=== PATIENT | male | born 1960 | race Caucasian/White ===

== ENCOUNTER 2016-08-07 10:51 | Outpatient (CLI) | payer MEDICARE, BC ==
[~2016-08-07 10:51] MED LIST: ALPR2TAB7 PO; CINA30TA PO; DOCU100T2 PO; GABA-534 PO; INSU100C10 SQ; INSU100C7 SQ; IPRA12.9 IH; LATA2.5D2 EACHEYE; MIDO10TA PO; PANT40SU PO; SERT50TA PO; SEVE800T8 PO; SIMV40TA5 PO; SODI454P9 PO
== END 2016-08-07 23:59 | disposition home or self-care (01) ==
LOC: WOU 10:51
PROVIDERS: ATTEND Podiatrist Foot & Ankle Surgery
DX: E11.621 Type 2 diabetes mellitus with foot ulcer (principal); L97.512 Non-pressure chronic ulcer of other part of right foot with fat layer exposed; E11.42 Type 2 diabetes mellitus with diabetic polyneuropathy; Z83.3 Family history of diabetes mellitus; Z87.891 Personal history of nicotine dependence
CPT/HCPCS: 11042; A6402

== ENCOUNTER 2016-08-14 11:15 | Outpatient (CLI) | payer MEDICARE, BC | END 2016-08-14 23:59 | disposition left against medical advice (07) | LOC: WOU 11:15 | PROVIDERS: ATTEND Podiatrist Foot & Ankle Surgery | DX: Z75.3 Unavailability and inaccessibility of health-care facilities (principal) | CPT/HCPCS: A6402 ==

== ENCOUNTER 2016-08-18 08:51 | Emergency (ER) | payer MEDICARE, BC ==
[~2016-08-18] VITALS: Ht 170.2 cm; Wt 68.0 kg
[2016-08-18 10:26] VITALS: BP 123/57
== END 2016-08-18 10:27 | disposition home or self-care (01) ==
LOC: ER 08:53
DX: I12.0 Hypertensive chronic kidney disease with stage 5 chronic kidney disease or end stage renal disease (principal); N18.6 End stage renal disease; J45.909 Unspecified asthma, uncomplicated; F41.9 Anxiety disorder, unspecified; I25.2 Old myocardial infarction; E11.9 Type 2 diabetes mellitus without complications; Z99.2 Dependence on renal dialysis; Z79.4 Long term (current) use of insulin; Z88.8 Allergy status to other drugs, medicaments and biological substances
CPT/HCPCS: 99281; A4606; Z7502; Z7610

== ENCOUNTER 2016-10-11 08:14 | Outpatient (CLI) | payer MEDICARE, BC ==
[2016-10-11 09:16] LABS: BASOPHILS # (AUTO) 0.1 /CMM (0.0-0.2); BASOPHILS % (AUTO) 0.9 % (0.0-2.0); EOSINOPHILS # (AUTO) 0.4 /CMM (0.0-0.7); EOSINOPHILS % (AUTO) 5.7 % (0.0-6.0); LYMPHOCYTES # (AUTO) 1.4 /CMM (0.8-4.8); LYMPHOCYTES % (AUTO) 22.2 % (20.0-44.0); MEAN CORPUSCULAR HEMOGLOBIN 30 PG (26.0-33.0); MEAN CORPUSCULAR HGB CONC 33 g/dl (31.0-36.0); MEAN CORPUSCULAR VOLUME 93 fL (80-96); MONOCYTES # (AUTO) 0.7 /CMM (0.1-1.30); MONOCYTES % (AUTO) 11.1 % (2.0-12.0); NEUTROPHILS # (AUTO) 3.8 /CMM (1.8-8.9); NEUTROPHILS % (AUTO) 60.1 % (43.0-81.0); PLATELET COUNT (AUTO) 197 /CMM (150-450); RDW COEFFICIENT OF VARIATION 14.5 (11.5-15.0); RED BLOOD CELL COUNT(AUTO) 6.62 MIL/uL (4.5-6.0); WHITE BLOOD COUNT (AUTO) 6.4 K/uL (4.3-11.0)
[2016-10-11 09:40] LABS: HEMOGLOBIN 19.9 g/dL (13.5-17.5)
[2016-10-11 09:42] LABS: HEMATOCRIT 61 % (39-51)
[2016-10-11 09:45] LABS: EOSINOPHILS % (MANUAL) 7 % (0-4); LYMPHOCYTES % (MANUAL) 28 % (16-48); MONOCYTES % (MANUAL) 12 % (0-11.0); NEUTROPHILS % (MANUAL) 53 (42-76)
[2016-10-11 09:47] LABS: ANISOCYTOSIS 1+; PLATELET ESTIMATE ADEQUATE
[2016-10-11 09:56] LABS: CALCIUM, SERUM 9.8 mg/dL (8.5-10.1); POTASSIUM 4.8 mmol/L (3.5-5.1)
[2016-10-11 10:01] LABS: CREATININE 8.2 mg/dL (0.6-1.3)
== END 2016-10-11 23:59 | disposition home or self-care (01) ==
LOC: LAB 08:14
PROVIDERS: ATTEND Internal Medicine
DX: E11.22 Type 2 diabetes mellitus with diabetic chronic kidney disease (principal); N18.6 End stage renal disease
CPT/HCPCS: 36415; 80048-TC; 80061-TC; 83540-TC; 85025-TC

== ENCOUNTER 2016-11-03 13:50 | Outpatient (CLI) | payer MEDICARE, BC | END 2016-11-03 23:59 | disposition home or self-care (01) | LOC: WOU 13:50 | PROVIDERS: ATTEND Podiatrist Foot & Ankle Surgery | DX: E11.621 Type 2 diabetes mellitus with foot ulcer (principal); L97.411 Non-pressure chronic ulcer of right heel and midfoot limited to breakdown of skin; L97.521 Non-pressure chronic ulcer of other part of left foot limited to breakdown of skin; E11.22 Type 2 diabetes mellitus with diabetic chronic kidney disease; N18.6 End stage renal disease; Z99.2 Dependence on renal dialysis; Z79.899 Other long term (current) drug therapy | CPT/HCPCS: A6402; G0463 ==

== ENCOUNTER 2016-11-15 14:05 | Outpatient (CLI) | payer MEDICARE, BC | END 2016-11-15 23:59 | disposition home or self-care (01) | LOC: WOU 14:05 | PROVIDERS: ATTEND Podiatrist Foot & Ankle Surgery | DX: E11.621 Type 2 diabetes mellitus with foot ulcer (principal); L97.521 Non-pressure chronic ulcer of other part of left foot limited to breakdown of skin; L97.419 Non-pressure chronic ulcer of right heel and midfoot with unspecified severity; R60.0 Localized edema; Z83.3 Family history of diabetes mellitus; Z82.49 Family history of ischemic heart disease and other diseases of the circulatory system; E11.42 Type 2 diabetes mellitus with diabetic polyneuropathy; F41.9 Anxiety disorder, unspecified | CPT/HCPCS: 11042; A6402 ==

== ENCOUNTER 2016-11-22 14:20 | Outpatient (CLI) | payer MEDICARE, BC ==
[2016-11-22] MEDS ORDERED: VIT1TABL46 PO (16:50)
[2016-11-22] MEDS ORDERED: TRAZ-144 PO (16:50)
[2016-11-22] MEDS ORDERED: ESCI10TA PO (16:52)
[2016-11-22] MEDS ORDERED: SILD50TA PO (19:26)
[2016-11-22] MEDS ORDERED: BENZ-13 PO (19:26)
[2016-11-22] MEDS ORDERED: MIDO10TA PO (19:50)
[2016-11-22] MEDS ORDERED: INSU100V10 SQ (19:50)
[2016-11-22] MEDS ORDERED: ALBU6.7H IH (19:50)
[2016-11-22] MEDS ORDERED: CARV12.52 PO (19:51)
[2016-11-22] MEDS ORDERED: CALC-838 PO (19:51)
[2016-11-23] MEDS ORDERED: BRIM5DRO3 EACHEYE (19:55)
[2016-11-23] MEDS ORDERED: BRIM5DRO2 OP (19:55)
== END 2016-11-22 23:59 | disposition home or self-care (01) ==
LOC: WOU 14:20
PROVIDERS: ATTEND Podiatrist Foot & Ankle Surgery
DX: E11.621 Type 2 diabetes mellitus with foot ulcer (principal); L97.523 Non-pressure chronic ulcer of other part of left foot with necrosis of muscle; Z87.891 Personal history of nicotine dependence; E11.21 Type 2 diabetes mellitus with diabetic nephropathy; Z99.2 Dependence on renal dialysis; I50.9 Heart failure, unspecified; Z83.3 Family history of diabetes mellitus; Z84.89 Family history of other specified conditions; Z82.49 Family history of ischemic heart disease and other diseases of the circulatory system; Z79.84 Long term (current) use of oral hypoglycemic drugs; I10 Essential (primary) hypertension
CPT/HCPCS: 11043; 87070; 87075; 87077; 87186 ×2; A6402

== ENCOUNTER 2016-11-22 15:44 | Inpatient (IN) | payer MEDICARE, BC ==
[~2016-11-22] VITALS: Ht 175.3 cm; Wt 101.6 kg
[2016-11-22] MEDS ORDERED: PIPERACILLIN /TAZOBACTAM 3.375 G in IV D5W 50 ML IV SCH (16:30)
[2016-11-22] MEDS ORDERED: VANCOMYCIN 1 GM in IV D5W 250 ML IV SCH (16:30)
--- NOTE | 2016-11-22 16:30 | NUR ---
RN NOTES PT ADMITTED FROM WOUND CARE.IN NO APPARENT DISTRESS. VS WNL. ADMITTED FOR DIABETIC FOOT ULCER AND CELLULITIS. ADMITTED UNDER DR TERRELL FOR PODIATRY, AND UNDER [facility] FOR MEDICAL SERVICES. SKIN AND BODY ASSESSMENT DONE. PHOTOS PLACED ON CHART. PT'S CALL LIGHT WITHIN REACH. WILL CONTINUE TO MONITOR
[2016-11-22] MEDS ORDERED: VIT1TABL46 PO (16:50)
[2016-11-22] MEDS ORDERED: TRAZ-144 PO (16:50)
[2016-11-22] MEDS ORDERED: ESCI10TA PO (16:52)
[2016-11-22] MEDS ORDERED: FEE PK DOSING 1 MIN EA MC ONE (16:59)
[2016-11-22] MEDS ORDERED: VANCOMYCIN 1 GM in IV D5W 250 ML IV ONE (17:00)
[2016-11-22] MEDS ORDERED: VANCOMYCIN 1 GM in IV D5W 250 ML IV PRN (17:00)
[2016-11-22] MEDS ORDERED: MUPIROCIN OINT 2% 22 GM TUBE TP SCH (17:00)
[2016-11-22] MEDS ORDERED: ZOLPIDEM TARTRATE 5 MG TABLET PO PRN (17:00)
[2016-11-22] MEDS ORDERED: PIPERACILLIN /TAZOBACTAM 2.25 G in IV D5W 50 ML IV SCH (17:01)
[2016-11-22] MEDS ORDERED: SECONDARY IV SET 1 EA INFUS.SET MC ONE (17:50)
[2016-11-22] MEDS ORDERED: IV NS 0.9% 250 ML IV ONE (17:50)
[2016-11-22 18:17] LABS: CALCIUM, SERUM 8.6 mg/dL (8.5-10.1); POTASSIUM 4.2 mmol/L (3.5-5.1)
--- NOTE | 2016-11-22 18:30 | NUR ---
RN NOTES PT IN BED. AWAKE, ALERT, ORIENTED X 3. IN NO APPARENT DISTRESS. RESPIRATIONS EVEN AND UNLABORED. WITH WOUND DRESSING INTACT. WILL ENDORSE TO ONCOMING SHIFT
[2016-11-22 18:37] LABS: CREATININE 8.7 mg/dL (0.6-1.3)
--- NOTE | 2016-11-22 19:13 | NUR ---
MS RN NOTES RECEIVED PT SITTING UP IN BED, AWAKE, A/OX 4 . NO ACUTE DISTRESS, NO SOB NOTED. RESPIRATION IS EVEN AND UNLABORED. RFA IV SITE INTACT AND PATENT, NO S/S OF INFILTRATION NOTED, RAKEL AVF WITH NO BLEEDING AT THIS TIME, NO C/O PAIN OR DISCOMFORT AT THIS TIME. ALL NEEDS ATTENDED AND MET. KEPT CLEAN AND COMFORTABLE. CALL LIGHT WITHIN REACH , WILL CONTINUE TO MONITOR.
[2016-11-22] MEDS ORDERED: SILD50TA PO (19:26)
[2016-11-22] MEDS ORDERED: BENZ-13 PO (19:26)
[2016-11-22] MEDS ORDERED: MIDO10TA PO (19:50)
[2016-11-22] MEDS ORDERED: INSU100V10 SQ (19:50)
[2016-11-22] MEDS ORDERED: ALBU6.7H IH (19:50)
[2016-11-22] MEDS ORDERED: CALC-838 PO (19:51)
[2016-11-22] MEDS ORDERED: CARV12.52 PO (19:51)
[2016-11-22 20:00] VITALS: BP 140/81
[2016-11-22] MEDS: PIPERACILLIN /TAZOBACTAM 2.25 G in IV D5W 50 ML IV SCH (20:59)
[2016-11-22] MEDS ORDERED: MUPIROCIN OINT 2% 22 GM TUBE ONE (22:22)
--- NOTE | 2016-11-22 22:30 | NUR ---
PATIENT WAS ASKING ABOUT HIS HOME MEDS, INFORMED PT THAT HIS HOME MEDS WAS BEING REVIEWED AND NEED TO BE CONTINUED BY MD. EXPLAINED TO PT THAT HE CANNOT TAKE ANY HOME MEDS WHILE HE'S HERE IN THE HOSPITAL UNLESS IT WAS CONTINUED OR APPROVED BY THE MD, PT VERBALIZED UNDERSTANDING.
[2016-11-23] MEDS: PIPERACILLIN /TAZOBACTAM 2.25 G in IV D5W 50 ML IV SCH ×3 (04:38→21:48)
--- NOTE | 2016-11-23 05:50 | NUR ---
PT WAS ASKING ABOUT HIS HOME MEDS AND CONCERNED THAT HE'S NOT GETTING IT, PT HAS EYE DROPS AT BED SIDE FROM BUT REFUSED TO GIVE IT TO ME. PLACED A CALL TO [facility] AND SPOKE WITH NACHO,. STILL AWAITING FOR YANCY DANIEL 'S CALL BACK.
[2016-11-23 06:27] LABS: BASOPHILS # (AUTO) 0.1 /CMM (0.0-0.2); BASOPHILS % (AUTO) 1.4 % (0.0-2.0); EOSINOPHILS # (AUTO) 0.3 /CMM (0.0-0.7); EOSINOPHILS % (AUTO) 5.3 % (0.0-6.0); HEMATOCRIT 57 % (39-51); HEMOGLOBIN 18.7 g/dL (13.5-17.5); LYMPHOCYTES # (AUTO) 1.7 /CMM (0.8-4.8); LYMPHOCYTES % (AUTO) 26.8 % (20.0-44.0); MEAN CORPUSCULAR HEMOGLOBIN 31 PG (26.0-33.0); MEAN CORPUSCULAR HGB CONC 33 g/dl (31.0-36.0); MEAN CORPUSCULAR VOLUME 94 fL (80-96); MONOCYTES # (AUTO) 0.8 /CMM (0.1-1.30); MONOCYTES % (AUTO) 13.4 % (2.0-12.0); NEUTROPHILS # (AUTO) 3.3 /CMM (1.8-8.9); NEUTROPHILS % (AUTO) 53.1 % (43.0-81.0); PLATELET COUNT (AUTO) 157 /CMM (150-450); RDW COEFFICIENT OF VARIATION 14.7 (11.5-15.0); WHITE BLOOD COUNT (AUTO) 6.2 K/uL (4.3-11.0)
[2016-11-23 06:40] LABS: CALCIUM, SERUM 9.1 mg/dL (8.5-10.1); POTASSIUM 4.6 mmol/L (3.5-5.1)
--- NOTE | 2016-11-23 07:10 | NUR ---
MS RN NOTES PT SITTING UP IN BED, AWAKE, A/OX 4 . NO ACUTE DISTRESS, NO SOB NOTED. RESPIRATION IS EVEN AND UNLABORED. RFA IV SITE INTACT AND PATENT, NO S/S OF INFILTRATION NOTED, RAKEL AVF WITH NO BLEEDING AT THIS TIME, NO C/O PAIN OR DISCOMFORT AT THIS TIME. ALL NEEDS ATTENDED AND MET. KEPT CLEAN AND COMFORTABLE. CALL LIGHT WITHIN REACH , WILL ENDORSE TO NEXT SHIFT FOR JONO.
[2016-11-23 08:00] VITALS: BP 108/78
[2016-11-23] MEDS: ASCORBIC ACID 500 MG TABLET PO SCH (08:45)
[2016-11-23] MEDS: GENTAMICIN 0.1% OINT 15 GM TUBE TP SCH (08:46)
[2016-11-23] MEDS: MUPIROCIN OINT 2% 22 GM TUBE TP SCH ×2 (08:47→21:47)
[2016-11-23 09:09] LABS: BAND % (MANUAL) 1 % (0.0-5.0); EOSINOPHILS % (MANUAL) 4 % (0-4); LYMPHOCYTES % (MANUAL) 27 % (16-48); MONOCYTES % (MANUAL) 12 % (0-11.0); NEUTROPHILS % (MANUAL) 56 (42-76)
[2016-11-23 09:10] LABS: ANISOCYTOSIS 1+; PLATELET ESTIMATE ADEQUATE
--- NOTE | 2016-11-23 11:44 | NUR ---
MS RN NOTES CALLED [facility] FOR DR MORA. PATIENT NEEDS ACCUCHCK AND MED RECON. MD ORDERED MODERATE SLIDING SCALE AND STATED HE WILL RECONCILE HIS MEDS. WILL PLACE ORDERS.
[2016-11-23] MEDS: BLOOD SUGAR DIAGNOSTIC 1 EACH STRIP VI SCH ×3 (12:00→21:55)
[2016-11-23] MEDS ORDERED: DEXTROSE 50%-WATER 50 ML DISP.SYRIN IV PRN (12:00)
--- NOTE | 2016-11-23 12:08 | NUR ---
MS RENETTA CABALLERO CALLED RADIOLOGY TO FIND OUT WHEN THE MRI WILL BE DONE FOR THE PATIENT. WAS TRANSFERRED TO [facility] TO FIND OUT IF THE INSURANCE WOULD APPROVE THE MRI. LEFT A MESSAGE ON THE ANSWERING MACHINE TO CALL BACK.
--- NOTE | 2016-11-23 12:10 | NUR ---
MS RN NOTES PATIENT REFUSED ACCUCHECK. PATIENT STATES THAT HE TOOK HIS SUGAR WITH HIS OWN METER AND THAT THE SUGAR WAS 120. PATIENT WOULD NOT ALLOW TO HAVE SUGAR RECHECKED WITH HOSPITAL GLUCOMETER TO VERIFY. PATIENT STATES HE WILL ALLOW FOR THE EVENING BLOOD SUGAR CHECK.
[2016-11-23] MEDS: INSULIN REGULAR, HUMAN 100 UNIT/ML 3 ML VIAL SQ PRN ×2 (12:13→17:45)
[2016-11-23] MEDS: DAKINS QUARTER STRENGTH (0.125%) 480 ML BOTTLE TOP SCH (12:15)
[2016-11-23 16:00] VITALS: BP 116/73
[2016-11-23] MEDS: LACTOBACILLUS RHAMNOSUS GG 1 EACH CAP.SPRINK PO SCH (17:41)
[2016-11-23] MEDS ORDERED: ALBUTEROL FS 2.5 MG/3 ML VIAL.NEB NEB PRN (18:00)
[2016-11-23] MEDS: INSULIN LISPRO/ASPART 100 UNIT/ML CARTRIDGE SQ SCH (18:00)
[2016-11-23] MEDS ORDERED: SIMVASTATIN 40 MG TABLET PO SCH (18:00)
[2016-11-23] MEDS: VIT B CMPLX 3/FA/VIT C/BIOTIN 1 TAB TABLET PO SCH (18:00)
[2016-11-23] MEDS: PANTOPRAZOLE 40 MG/PACK PACK PO SCH (18:00)
[2016-11-23] MEDS ORDERED: ALBUTEROL SULFATE 8 GM HFA.AER.AD IH PRN (18:00)
[2016-11-23] MEDS: CINACALCET HCL 30 MG TABLET PO SCH (18:00)
[2016-11-23] MEDS: CALCIUM CARB 600MG /VIT D 1 EACH TABLET PO SCH (18:30)
[2016-11-23] MEDS ORDERED: ALPRAZOLAM 1 MG TABLET PO SCH (18:30)
[2016-11-23] MEDS: MIDODRINE HCL (5MG) 5 MG TABLET PO SCH (18:30)
[2016-11-23] MEDS ORDERED: DOCUSATE SODIUM 100 MG CAPSULE PO SCH (18:30)
--- NOTE | 2016-11-23 18:36 | NUR ---
MS RN NOTES DR MORA HAS JUST COMPLETED THE MED RECON. PATIENT IS REFUSING ALL MEDS SCHEDULED AT 1800. PATIENT HAS HIS HOME MEDICATIONS AT BEDSIDE AND IS REFUSING TO GIVE THEM TO THE PHARMACY. PATIENT STATES THAT HE TOOK ALL THESE MEDICATIONS THIS MORNING AND THEY ARE NOT NEEDED THIS EVENING. PATIENT STATES THAT NOW THAT THE MEDICATION RECON HAS BEEN DONE THAT HE PROMISES TO NO LONGER TAKE HIS HOME MEDICATIONS AND ONLY THOSE THAT ARE PROVIDED BY THE HOSPITAL, BUT STILL REFUSES TO GIVE THE MEDICATIONS TO THE PHARMACY. PATIENT HAS VERY GOOD UNDERSTANDING OF HIS MEDICATIONS.
--- NOTE | 2016-11-23 18:42 | NUR ---
MS RN NOTES SPOKE TO MARVEL IN RADIOLOGY. THE TECH IS WORKING ON THE MACHINE AND HE STATES THE PATIENT WILL BE TAKEN FOR THE SCAN SOON IT IS FIXED.
--- NOTE | 2016-11-23 19:10 | NUR ---
MS RN NOTES RECEIVED PT SITTING IN BED, WITH AT BED SIDE. PT IS AWAKE, A/O X 4. VERBALLY RESPONSIVE. NO ACUTE DISTRESS, NO SOB NOTED. RESPIRATION IS EVEN AND UNLABORED. IV SITE ON RFA INTACT AND PATENT, NO S/S OF INFILTRATION NOTED. RAKEL AVF WITH NO BLEEDING AT THIS TIME. NO S/S OF HYPER/ HYPERGLYCEMIA NOTED. DENIES ANY PAIN OR DISCOMFORT AT THIS TIME. ALL NEEDS ATTENDED AT THIS TIME, GOOD SKIN CARE RENDERED, BILATERAL FOOT COVERED WITH DRESSING, NO S/S OF BLEEDING AT THIS TIME. CALL LIGHT WITHIN REACH. WILL CONT TO MONITOR.
--- NOTE | 2016-11-23 19:24 | NUR ---
MS RN CLOSING NOTES NO SIGNIFICANT CHANGES IN PATENT CONDITION THROUGHOUT THE SHIFT. NO SOB OR DISTRESS NOTED AT THIS TIME. PATIENT DENIES PAIN AT THIS TIME. BED IN A LOW POSITION, CALL LIGHT IS WITHIN PATIENT REACH. WILL ENDORSE FOR JONO.
[2016-11-23] MEDS ORDERED: BRIM5DRO2 OP (19:55)
[2016-11-23] MEDS ORDERED: BRIM5DRO3 EACHEYE (19:55)
[2016-11-23] MEDS: CARVEDILOL 12.5 MG TABLET PO SCH (21:00)
--- NOTE | 2016-11-23 21:00 | NUR ---
PLACED A CALL TO [facility] TO FF UP REGARDING PT'S MRI, PER [facility] SYSTEM IS STILL DOWN AND THEY'RE STILL TRYING TO FIX IT. THEY'RE AWARE REGARDING LEFT FOOT MRI ORDER, THEY WILL DO IT SOON THE SYSTEM IS FIXED. INFORMED PT , BUT VERY UPSET THAT I CAN'T INFORM HIM WHAT TIME IT'S WILL BE DONE.
[2016-11-23] MEDS: SIMVASTATIN 40 MG TABLET PO SCH (21:51)
[2016-11-23] MEDS: ALPRAZOLAM 1 MG TABLET PO SCH (21:52)
[2016-11-23 22:00] VITALS: BP_SYST 117; BP_SYST 127; BP_DIAS 78
--- NOTE | 2016-11-23 22:00 | NUR ---
PT STATED THAT HE HAS MEDICATIONS AT BEDSIDE , PT REFUSED FOR ME TO CHECK IT , HE SAID THAT HIS WILL BRING IT HOME. ASKED PT IF HE HAS ANY CONCERN WITH THE MEDICATION PER PT HE DOESN'T HAVE ANY CONCERN. EXPLAINED TO THE PT THAT DOCTOR WILL BE HERE DURING THE DAY TIME AND HE CAN DISCUSS WITH THE MD IF HE HAS ANY CONCERNS WITH HIS MEDICATIONS. INFORMED AND EXPLAINED TO THE PT THAT HE CANNOT TAKE ANY MEDICATIONS FROM HOME AND HE CANNOT TAKE ANY MEDICATIONS THAT DOESN'T HAVE DOCTOR'S ORDER WHILE HE'S HERE IN THE HOSPITAL.
[2016-11-23] MEDS: *INSULIN REGULAR(HUMULIN R)HUM 100 UNIT/ML VIAL SQ PRN (22:32)
[2016-11-23] MEDS: INSULIN DETEMIR 100 UNIT/ML CARTRIDGE SQ SCH (22:37)
[2016-11-23] MEDS: LATANOPROST EYE DROP 0.005% 2.5 ML BOTTLE EACHEYE SCH (22:38)
[2016-11-24] MEDS: ALPRAZOLAM 1 MG TABLET PO SCH ×3 (05:00→21:41)
--- NOTE | 2016-11-24 05:30 | NUR ---
PT WAS ASKING FOR HIS SENSIPAR MEDICATION , INFORMED PT THAT IT WAS ORDERED AT 9AM, PT STATED THAT HE USUALLY TAKES IT BEFORE DIALYSIS, PT REFUSED XANAX AT THIS TIME AND PREFERS TO TAKE IT AFTER DIALYSIS. PT WAS VERY UPSET BECAUSE I CANNOT TELL HIM WHAT TIME THE DIALYSIS NURSE WILL BE COMING TO DIALYZE HIM, HE WAS ALSO UPSET REGARDING THE MRI, THAT I CANNOT INFORM HIM WHAT TIME IT WILL BE DONE. WILL ENDORSE TO DAY SHIFT RN REGARDING PT'S CONCERN
[2016-11-24] MEDS: PIPERACILLIN /TAZOBACTAM 2.25 G in IV D5W 50 ML IV SCH ×3 (05:42→21:39)
[2016-11-24] MEDS: BLOOD SUGAR DIAGNOSTIC 1 EACH STRIP VI SCH ×4 (05:45→22:28)
--- NOTE | 2016-11-24 05:58 | NUR ---
PT REFUSED XANAX X 3 RISK AND BENEFITS EXPLAINED. HE WANTS TO TAKE IT AFTER DIALYSIS, HE USUALLY TAKES IT AFTER DIALYSIS AT HOME, EXPLAINED TO HIM THAT IT'S THE MD ORDER. PT VERBALIZED " IF RULES DOESN'T GO WITH MY RULES THEN I HAVE TO BREAK THE RULES . " EXPLAINED TO THE PT THAT WE HAVE TO FOLLOW MD ORDERS WHEN HE IS HERE IN THE HOSPITAL. PT VERY INSISTED THAT HE WANT HIS OWN WAY.
[2016-11-24 06:42] LABS: BASOPHILS # (AUTO) 0.1 /CMM (0.0-0.2); BASOPHILS % (AUTO) 1.6 % (0.0-2.0); EOSINOPHILS # (AUTO) 0.5 /CMM (0.0-0.7); HEMATOCRIT 56 % (39-51); HEMOGLOBIN 18.4 g/dL (13.5-17.5); LYMPHOCYTES # (AUTO) 1.7 /CMM (0.8-4.8); LYMPHOCYTES % (AUTO) 24.3 % (20.0-44.0); MEAN CORPUSCULAR HEMOGLOBIN 31 PG (26.0-33.0); MEAN CORPUSCULAR HGB CONC 33 g/dl (31.0-36.0); MEAN CORPUSCULAR VOLUME 93 fL (80-96); MONOCYTES # (AUTO) 0.8 /CMM (0.1-1.30); MONOCYTES % (AUTO) 10.7 % (2.0-12.0); NEUTROPHILS % (AUTO) 56.4 % (43.0-81.0); PLATELET COUNT (AUTO) 158 /CMM (150-450); RDW COEFFICIENT OF VARIATION 14.8 (11.5-15.0); RED BLOOD CELL COUNT(AUTO) 5.99 MIL/uL (4.5-6.0); WHITE BLOOD COUNT (AUTO) 7.2 K/uL (4.3-11.0)
[2016-11-24 07:28] LABS: BAND % (MANUAL) 1 % (0.0-5.0); EOSINOPHILS % (MANUAL) 3 % (0-4); LYMPHOCYTES % (MANUAL) 28 % (16-48); MONOCYTES % (MANUAL) 3 % (0-11.0); NEUTROPHILS % (MANUAL) 65 (42-76); PLATELET ESTIMATE ADEQUATE
--- NOTE | 2016-11-24 07:30 | NUR ---
MS RN NOTES PT IN BED, A / O X 4 VERBALLY RESPONSIVE IN [place]. NO ACUTE DISTRESS, NO SOB NOTED. RESPIRATION IS EVEN AND UNLABORED. IV SITE ON LEFT HAND INTACT AND PATENT, NO S/S OF INFILTRATION NOTED. DENIES ANY PAIN OR DISCOMFORT AT THIS TIME. LCW PERMA CATH INTACT, WITH NO S/S OF INFECTION. NO S/S OF HYPO/ HYPERGLYCEMIA NOTED. ALL NEEDS ATTENDED ND MET, KEPT COMFORTABLE. CALL LIGHT WITHIN REACH. WILL ENDORSE TO NEXT SHIFT FOR JONO.
[2016-11-24 07:31] LABS: CALCIUM, SERUM 9.2 mg/dL (8.5-10.1); POTASSIUM 4.4 mmol/L (3.5-5.1)
[2016-11-24 08:00] VITALS: BP 138/90
[2016-11-24] MEDS ORDERED: SEVELAMER CARBONATE 800 MG TABLET PO SCH (08:00)
[2016-11-24] MEDS: INSULIN LISPRO/ASPART 100 UNIT/ML CARTRIDGE SQ SCH ×3 (08:00→18:00)
[2016-11-24 08:16] LABS: CREATININE 11.7 mg/dL (0.6-1.3)
--- NOTE | 2016-11-24 08:18 | NUR ---
RENETTA AM NOTES RECEIVED PATIENT IN STABLE CONDITION. FOLLOWED UP WITH MRI SCHEDULE, WILL BE PICKED UP AFTER 9A FOR PROCEDURE. FOLLOWED UP WITH HEMODIALYSIS FOR HD SCHEDULE, WAITING FOR RESPONSE. LAB REPORTED CRITICAL HIGH BUN 99, CREATININE 11.7, PATIENT AWAITING DIALYSIS TODAY. WILL CONTINUE TO MONITOR.
[2016-11-24] MEDS: CARVEDILOL 12.5 MG TABLET PO SCH ×2 (09:00→21:40)
--- NOTE | 2016-11-24 09:00 | NUR ---
HOLDING INSULIN AND CULTURELLE UNTIL AFTER HD AND WHEN PATIENT HAS EATEN. PATIENT DID NOT WANT TO EAT BREAKFAST BEFORE DIALYSIS. ENCOURAGED PATIENT THREE TIMES, PATIENT STILL REFUSED. WILL CONTINUE TO MONITOR.
[2016-11-24] MEDS: VIT B CMPLX 3/FA/VIT C/BIOTIN 1 TAB TABLET PO SCH (09:01)
[2016-11-24] MEDS: MIDODRINE HCL (5MG) 5 MG TABLET PO SCH ×2 (09:01→18:36)
[2016-11-24] MEDS: ASCORBIC ACID 500 MG TABLET PO SCH (09:02)
[2016-11-24] MEDS: CALCIUM CARB 600MG /VIT D 1 EACH TABLET PO SCH (09:02)
[2016-11-24] MEDS: CINACALCET HCL 30 MG TABLET PO SCH (09:02)
[2016-11-24] MEDS: PANTOPRAZOLE 40 MG/PACK PACK PO SCH (09:02)
[2016-11-24] MEDS: DAKINS QUARTER STRENGTH (0.125%) 480 ML BOTTLE TOP SCH (09:03)
[2016-11-24] MEDS: GENTAMICIN 0.1% OINT 15 GM TUBE TP SCH (09:03)
[2016-11-24] MEDS: MUPIROCIN OINT 2% 22 GM TUBE TP SCH ×2 (09:03→21:42)
--- NOTE | 2016-11-24 10:41 | NUR ---
ADMINISTERED MOST AM MEDICATIONS ORDERED PREDIALYSIS IN ENOUGH TIME TO ABSORB. WOUND CARE AND DEBRIDEMENT DONE BY SURGEON AT BEDSIDE. CT WITHOUT CONTRAST TO BE DONE AFTER HEMODIALYSIS TREATMENT. WILL CONTINUE TO MONITOR.
--- NOTE | 2016-11-24 11:54 | NUR ---
FOLLOWED UP RE: MEDICATION DOSAGES. AM DOSES OF DOCUSATE AND RENVELA HELD UNTIL AFTER DIALYSIS. DOSAGES ADJUSTED BY MD. PT AWARE AND VERBALIZES UNDERSTANDING. WILL CONTINUE TO MONITOR.
[2016-11-24] MEDS ORDERED: HEPARIN SODIUM, PORCINE 1,000 UNIT/ML VIAL IV ONE ×2 (12:00)
--- NOTE | 2016-11-24 12:00 | NUR ---
DIALYSIS NURSE ADMINISTERED HEPARIN DURING DIALYSIS TREATMENT. WILL CONTINUE TO MONITOR.
[2016-11-24] MEDS: INSULIN REGULAR, HUMAN 100 UNIT/ML 3 ML VIAL SQ PRN ×2 (14:13→18:35)
[2016-11-24] MEDS: SEVELAMER CARBONATE 800 MG TABLET PO SCH ×2 (14:14→18:37)
[2016-11-24] MEDS: LACTOBACILLUS RHAMNOSUS GG 1 EACH CAP.SPRINK PO SCH ×2 (14:14→18:36)
[2016-11-24] MEDS: DOCUSATE SODIUM 100 MG CAPSULE PO SCH (14:16)
[2016-11-24] MEDS: INSULIN DETEMIR 100 UNIT/ML CARTRIDGE SQ SCH ×2 (14:29→22:37)
--- NOTE | 2016-11-24 14:32 | NUR ---
PATIENT DONE WITH DIALYSIS AND TAKEN DIRECTLY FOR CT OF FOOT. AT END OF DIALYSIS, PATIENT'S BP 151/74, HR 92 WITH 48OOML OUT. WILL CONTINUE TO MONITOR.
[2016-11-24] MEDS ORDERED: SECONDARY IV SET 1 EA INFUS.SET MC ONE ×2 (14:49→16:46)
[2016-11-24] MEDS ORDERED: VANCOMYCIN 1 GM in IV D5W 250 ML IV ONE (15:00)
[2016-11-24 16:00] VITALS: BP 125/82
--- NOTE | 2016-11-24 18:00 | NUR ---
PATIENT REFUSED LISPRO/APART INSULIN, TOOK REGULAR INSULIN. WILL CONTINUE TO MONITOR. AT BEDSIDE.
--- NOTE | 2016-11-24 18:53 | NUR ---
RN PM NOTES RESIDENT IN STABLE CONDITION WITH AT BEDSIDE. ALL NEEDS MET, ALL CARE RENDERED. NO COMPLAINTS OF PAIN OR DISCOMFORT. NO SOB. WILL ENDORSE TO NEXT SHIFT.
--- NOTE | 2016-11-24 19:30 | NUR ---
MS RN NOTES RECEIVED ON BED A/O X4,NO SOB,S/P WOUND DEBRIDEMENT LEFT FOOT,DRESSING INTACT AND DRY.PAIN BEARABLE AT THE MOMENT. AT THE BEDSIDE.SALINE LOCK RFA INTACT AND PATENT.CALL LIGHT IN REACH,NEEDS ANTICIPATED.
--- NOTE | 2016-11-24 20:30 | NUR ---
MS RN NOTES HAD SHOWER ASSISTED BY IN THE BATHROOM.
--- NOTE | 2016-11-24 21:00 | NUR ---
MS RN NOTES DUE ZOSYN 2.25GM IVPB HUNG
[2016-11-24] MEDS: SIMVASTATIN 40 MG TABLET PO SCH (21:40)
[2016-11-24] MEDS: LATANOPROST EYE DROP 0.005% 2.5 ML BOTTLE EACHEYE SCH (21:44)
[2016-11-24] MEDS: HYDROCODONE/APAP 5/325MG 1 EACH TABLET PO PRN (21:46)
--- NOTE | 2016-11-24 21:46 | NUR ---
MS RN NOTES PAIN MANAGEMENT C/O PAIN VIA LEFT FOOT AFTER SHOWER,MEDICATED WITH NORCO 5/325,1 TBA PO ORDERED FOR PAIN 7/10 ON PAIN SCALE.
--- NOTE | 2016-11-24 22:30 | NUR ---
MS RN NOTES DRESSING CHANGED VIA LEFT FOOT PER PATIENT REQUEST.
[2016-11-24] MEDS: *INSULIN REGULAR(HUMULIN R)HUM 100 UNIT/ML VIAL SQ PRN (22:35)
[2016-11-25] MEDS: PIPERACILLIN /TAZOBACTAM 2.25 G in IV D5W 50 ML IV SCH ×3 (04:46→21:15)
[2016-11-25] MEDS ORDERED: IV NS 0.9% 250 ML IV ONE (04:47)
[2016-11-25] MEDS: ALPRAZOLAM 1 MG TABLET PO SCH ×3 (05:00→21:17)
--- NOTE | 2016-11-25 05:00 | NUR ---
MS RN NOTES ACCU-CHECK BLOOD SUGAR CHECK 123,NO INSULIN COVERAGE.XANAX HELD FOR 0500 DOSE,APPEARS SO SEDATED.
[2016-11-25] MEDS: BLOOD SUGAR DIAGNOSTIC 1 EACH STRIP VI SCH ×4 (05:31→21:27)
--- NOTE | 2016-11-25 06:17 | NUR ---
MS RN NOTES SLEPT WELL AT [facility],IV ABX TOLERATED WELL,PAIN MANAGEMENT EFFECTIVE.IN NO ACUTE DISTRESS,WILL ENDORSE TO DAY NURSE FOR JONO.
--- NOTE | 2016-11-25 07:15 | NUR ---
MS RN NOTES PATIENT IN BED, SLEEPING, AROUSES EASILY. IV IN RFA PATENT AND INTACT, FLUSHES WELL. LEFT FOOT DRESSING INTACT, NO BLEEDING NOTED. APPEARS COMFORTABLE IN BED. CALL LIGHT WITHIN REACH. WILL CONT TO MONITOR.
[2016-11-25 08:00] VITALS: BP 129/83
[2016-11-25] MEDS: LACTOBACILLUS RHAMNOSUS GG 1 EACH CAP.SPRINK PO SCH ×2 (08:29→17:18)
[2016-11-25] MEDS: CALCIUM CARB 600MG /VIT D 1 EACH TABLET PO SCH (08:29)
[2016-11-25] MEDS: SEVELAMER CARBONATE 800 MG TABLET PO SCH ×3 (08:29→18:07)
[2016-11-25] MEDS: DOCUSATE SODIUM 100 MG CAPSULE PO SCH (08:29)
[2016-11-25] MEDS: PANTOPRAZOLE 40 MG/PACK PACK PO SCH (08:30)
[2016-11-25] MEDS: CINACALCET HCL 30 MG TABLET PO SCH (08:30)
[2016-11-25] MEDS: ASCORBIC ACID 500 MG TABLET PO SCH (08:30)
[2016-11-25] MEDS: VIT B CMPLX 3/FA/VIT C/BIOTIN 1 TAB TABLET PO SCH (08:32)
[2016-11-25] MEDS: INSULIN LISPRO/ASPART 100 UNIT/ML CARTRIDGE SQ SCH ×3 (08:40→18:11)
[2016-11-25] MEDS: CARVEDILOL 12.5 MG TABLET PO SCH ×2 (08:46→21:16)
[2016-11-25] MEDS: GENTAMICIN 0.1% OINT 15 GM TUBE TP SCH (09:00)
[2016-11-25 09:18] LABS: CALCIUM, SERUM 8.7 mg/dL (8.5-10.1); POTASSIUM 4.9 mmol/L (3.5-5.1)
[2016-11-25 09:21] LABS: CREATININE 10.6 mg/dL (0.6-1.3)
[2016-11-25] MEDS: INSULIN DETEMIR 100 UNIT/ML CARTRIDGE SQ SCH ×2 (09:24→21:38)
[2016-11-25] MEDS: MIDODRINE HCL (5MG) 5 MG TABLET PO SCH ×2 (09:25→17:00)
[2016-11-25] MEDS: DAKINS QUARTER STRENGTH (0.125%) 480 ML BOTTLE TOP SCH (09:26)
[2016-11-25] MEDS: MUPIROCIN OINT 2% 22 GM TUBE TP SCH ×2 (09:27→21:19)
--- NOTE | 2016-11-25 09:30 | NUR ---
GENTAMICIN OINT NON ADMINISTERED, INSTRUCTION TO USE ALTERNATELY WITH BACTROBAN OINT IN LEFT FOOT.
[2016-11-25] MEDS: HYDROCODONE/APAP 5/325MG 1 EACH TABLET PO PRN ×3 (09:36→22:31)
[2016-11-25 10:16] VITALS: BP 129/83
[2016-11-25] MEDS: SODIUM POLYSTYRENE SULFONATE 15 G/60 ML BOTTLE PO SCH (11:16)
[2016-11-25] MEDS: INSULIN REGULAR, HUMAN 100 UNIT/ML 3 ML VIAL SQ PRN ×3 (11:24→21:34)
--- NOTE | 2016-11-25 11:34 | NUR ---
BS 136MG/DL. GIVEN 2 UNITS INSULIN REGULAR SQ PER ISS COVERAGE.
[2016-11-25 16:00] VITALS: BP_SYST 128; BP_SYST 155; BP_DIAS 76; BP_DIAS 91
--- NOTE | 2016-11-25 19:31 | NUR ---
MS RN CLOSING NOTES PATIENT IN BED, A/O X3. PATIENT AD BOWEL MOVEMENT TODAY. LEFT FOOT DRESSING CHANGED, PATIENT TOLERATED WELL. NO C/O PAIN AT THIS TIME. ON ANTIBIOTIC WITH NO ADVERSE REACTION NOTED. BLOOD SUGAR MONITORED, NO S/S OF HYPO/HYPERGLYCEMIA. CALL LIGHT WITHIN REACH. ENDORSED TO WATERFRONT DIRECTOR RN FOR CONTINUITY OF CARE.
--- NOTE | 2016-11-25 19:50 | NUR ---
MS RN NOTES RECEIVED A/O X4,SITTING ON BEDSIDE CHAIR,PAIN BEARABLE AT THE MOMENT,LEFT FOOT ELEVATED ON CHAIR.DRESSING INTACT AND DRY.SALINE LOCK RIGHT FOREARM INTACT AND PATENT.WILL CONTINUE TO MONITOR STATUS.
[2016-11-25 20:00] VITALS: BP_SYST 127; BP_DIAS 74; BP_DIAS 94
--- NOTE | 2016-11-25 21:00 | NUR ---
MS RN NOTES DUE ZOSYN 2.25GM IVPB HUNG
[2016-11-25] MEDS: LATANOPROST EYE DROP 0.005% 2.5 ML BOTTLE EACHEYE SCH (21:19)
[2016-11-25] MEDS: SIMVASTATIN 40 MG TABLET PO SCH (21:23)
--- NOTE | 2016-11-25 22:00 | NUR ---
MS RN NOTES ACCU-CHECK BLOOD SUGAR CHECK 143MG/DL,GIVEN SQ HUMULIN R 2 UNITS PER SLIDING SCALE,ALONG WITH LEVEMIR 20 UNITS SCHEDULED.SNACKS PROVIDED AT BEDSIDE.WILL MONITOR FOR HYPOGLYCEMIA
--- NOTE | 2016-11-25 22:31 | NUR ---
MS RN NOTES C/O PAIN 7/10 ON PAIN SCALE VIA LEFT FOOT,MEDICATED WITH NORCO 5/325MG PO PER PATIENT REQUEST.
--- NOTE | 2016-11-26 02:00 | NUR ---
MS RN NOTES SLEEPING AT THIS TIME
--- NOTE | 2016-11-26 04:00 | NUR ---
MS RN NOTES AWAKE,DOING SLIGHT EXERCISE ON HIS RIGHT KNEE ON BED.
[2016-11-26] MEDS: PIPERACILLIN /TAZOBACTAM 2.25 G in IV D5W 50 ML IV SCH ×3 (05:12→21:20)
[2016-11-26] MEDS: BLOOD SUGAR DIAGNOSTIC 1 EACH STRIP VI SCH ×4 (05:13→21:23)
[2016-11-26] MEDS: ALPRAZOLAM 1 MG TABLET PO SCH ×3 (05:13→21:19)
--- NOTE | 2016-11-26 05:30 | NUR ---
MS RN NOTES ACCU-CHECK BLOOD SUGAR CHECK 124,NO INSULIN COVERAGE.
--- NOTE | 2016-11-26 06:44 | NUR ---
MS RN NOTES NO SIGNIFICANT CHANGE IN STATUS,PAIN MANAGEMENT EFFECTIVE.IN NO ACUTE DISTRESS.WILL ENDORSE TO DAY NURSE FOR JONO.
--- NOTE | 2016-11-26 07:15 | NUR ---
MS RN NOTES RECEIVED PATIENT IN BED, AWAKE. LEFT FOOT DRESSING IN PLACE, APPEARS COMFORTABLE IN BED, NO C/O PAIN AT THIS TIME. CALL LIGHT WITHIN REACH. WILL CONT TO MONITOR.
[2016-11-26] MEDS: SEVELAMER CARBONATE 800 MG TABLET PO SCH ×3 (07:53→17:46)
[2016-11-26] MEDS: INSULIN LISPRO/ASPART 100 UNIT/ML CARTRIDGE SQ SCH ×3 (07:55→17:51)
[2016-11-26] MEDS: DOCUSATE SODIUM 100 MG CAPSULE PO SCH (07:57)
[2016-11-26] MEDS: LACTOBACILLUS RHAMNOSUS GG 1 EACH CAP.SPRINK PO SCH ×2 (07:57→16:30)
[2016-11-26] MEDS: MIDODRINE HCL (5MG) 5 MG TABLET PO SCH ×2 (07:59→16:55)
[2016-11-26 08:00] VITALS: BP 108/66
[2016-11-26] MEDS: CINACALCET HCL 30 MG TABLET PO SCH (08:00)
[2016-11-26] MEDS: PANTOPRAZOLE 40 MG/PACK PACK PO SCH (08:00)
[2016-11-26] MEDS: CALCIUM CARB 600MG /VIT D 1 EACH TABLET PO SCH (08:00)
[2016-11-26] MEDS: VIT B CMPLX 3/FA/VIT C/BIOTIN 1 TAB TABLET PO SCH (08:04)
[2016-11-26] MEDS: ASCORBIC ACID 500 MG TABLET PO SCH (08:05)
[2016-11-26] MEDS: HYDROCODONE/APAP 5/325MG 1 EACH TABLET PO PRN ×4 (08:05→21:26)
[2016-11-26 08:38] LABS: CALCIUM, SERUM 8.3 mg/dL (8.5-10.1); POTASSIUM 4.1 mmol/L (3.5-5.1)
[2016-11-26] MEDS: MUPIROCIN OINT 2% 22 GM TUBE TP SCH ×2 (09:00→21:33)
[2016-11-26] MEDS: INSULIN DETEMIR 100 UNIT/ML CARTRIDGE SQ SCH ×2 (09:20→21:21)
[2016-11-26] MEDS: GENTAMICIN 0.1% OINT 15 GM TUBE TP SCH (09:22)
[2016-11-26] MEDS: DAKINS QUARTER STRENGTH (0.125%) 480 ML BOTTLE TOP SCH (09:22)
--- NOTE | 2016-11-26 09:23 | NUR ---
BACTROBAN OINT NON ADMINISTERED, INSTRUCTION ALTERNATE WITH GENTAMICIN OINT TO WOUND TREATMENT.
[2016-11-26 09:26] LABS: CREATININE 12.1 mg/dL (0.6-1.3)
[2016-11-26] MEDS ORDERED: HEPARIN SODIUM, PORCINE 1000 UNIT/1 ML VIAL IV ONE (10:00)
[2016-11-26] MEDS ORDERED: HEPARIN SODIUM, PORCINE 1,000 UNIT/ML VIAL IV ONE (10:00)
[2016-11-26] MEDS: CARVEDILOL 12.5 MG TABLET PO SCH ×2 (10:16→21:20)
--- NOTE | 2016-11-26 10:17 | NUR ---
HEPARIN SODIUM SC ADMINISTERED BY LATANYAEMAIL DEVELOPER FOR HD IV PATENCY. DIALYSIS TREATMENT STARTED, DIALYSIS NURSE AT THE BED SIDE.
--- NOTE | 2016-11-26 11:43 | NUR ---
PATIENT IS SEEN BY DR. MAYFIELD TODAY, STAGE EXCISIONAL DEBRIDEMENT OF NON VIABLE TISSUE LEFT FOOT PERFORMED BY MD, PATIENT TOLERATED WELL.
--- NOTE | 2016-11-26 12:00 | NUR ---
POST DEBRIDEMENT BY DR. SKINNER, DRESSING IN PLACE. ORDERED WOUND CULTURE W/GS. PATIENT REFUSED TO OPEN DRESSING, STATED TO DO THE TEST TOMORROW SINCE THE WOUND WAS JUST COVERED. WILL ENDORSE TO NEXT SHIFT RN.
[2016-11-26] MEDS: INSULIN REGULAR, HUMAN 100 UNIT/ML 3 ML VIAL SQ PRN ×2 (12:14→16:54)
--- NOTE | 2016-11-26 13:05 | NUR ---
POST DIALYSIS TREATMENT WITH 4500ML FLUIDS OUTPUT, PATIENT TOLERATED WELL.
[2016-11-26] MEDS: VANCOMYCIN 500 MG in IV D5W 100 ML IV PRN (15:23)
[2016-11-26 16:00] VITALS: BP 117/68
--- NOTE | 2016-11-26 18:34 | NUR ---
MS RN CLOSING NOTES PATIENT IN BED, NOT IN DISTRESS. BLOOD SUGAR MONITORED, NO S/S OF HYPO/HYPERGLYCEMIA. IV IN RFA G22 PATENT AND INTACT, ON ANTIBIOTIC WITH NO ADVERSE REACTION, AFEBRILE. WOUND LEFT FOOT, DRESSING IN PLACE. NO BLEEDING NOTED, NO C/O PAIN AT THIS TIME. CALL LIGHT WITHIN REACH. WOUND CULTURE W/ GS SENT TO LAB ORDERED. WILL ENDORSE TO TREE PULLER RN FOR CONTINUITY OF CARE.
[2016-11-26 20:00] VITALS: BP 164/80
[2016-11-26] MEDS: SIMVASTATIN 40 MG TABLET PO SCH (21:26)
[2016-11-26] MEDS: LATANOPROST EYE DROP 0.005% 2.5 ML BOTTLE EACHEYE SCH (21:34)
[2016-11-26 22:00] VITALS: BP 164/80
--- NOTE | 2016-11-27 | NUR ---
MS RN NOTE PATIENT STABLE. SLEEPING WELL. LEFT FOOT ELEVATED. NO DISTRESS NOTED. BED LOCKED AND IN LOWEST POSITION. SIDE RAILS UP, CALL LIGHT WITHIN REACH. WILL ENDORSE TO DAY SHIFT FOR JONO.
--- NOTE | 2016-11-27 05:00 | NUR ---
MS RN NOTE UNABLE TO TAKE PICTURES. S/P DEBRIDEMENT TO LEFT FOOT ON 11/26.
[2016-11-27] MEDS: PIPERACILLIN /TAZOBACTAM 2.25 G in IV D5W 50 ML IV SCH ×3 (05:32→21:01)
[2016-11-27] MEDS: ALPRAZOLAM 1 MG TABLET PO SCH ×3 (05:33→20:59)
--- NOTE | 2016-11-27 06:41 | NUR ---
MS RN NOTE PATIENT STABLE. BLOOD SUGAR 155. INSULIN COVERAGE GIVEN ORDERED.
[2016-11-27] MEDS: INSULIN REGULAR, HUMAN 100 UNIT/ML 3 ML VIAL SQ PRN ×3 (06:54→16:59)
[2016-11-27] MEDS: BLOOD SUGAR DIAGNOSTIC 1 EACH STRIP VI SCH ×4 (06:55→21:07)
[2016-11-27 06:58] LABS: CALCIUM, SERUM 8.3 mg/dL (8.5-10.1); POTASSIUM 4.2 mmol/L (3.5-5.1)
--- NOTE | 2016-11-27 07:30 | NUR ---
MR RN NOTES RECEIVED PATIENT AWAKE. A/O X4. ON ROOM AIR, TOLERATING WELL. NO SOB NOTED. LEFT FOOT DRESSING IN PLACE, NO BLEEDING NOTED. NO C/O PAIN AT THIS TIME. CALL LIGHT WITHIN REACH. WILL CONT TO MONITOR.
[2016-11-27 08:00] VITALS: BP 107/70
[2016-11-27] MEDS: SEVELAMER CARBONATE 800 MG TABLET PO SCH ×3 (08:00→17:00)
[2016-11-27] MEDS: INSULIN LISPRO/ASPART 100 UNIT/ML CARTRIDGE SQ SCH ×3 (08:02→17:46)
[2016-11-27] MEDS: LACTOBACILLUS RHAMNOSUS GG 1 EACH CAP.SPRINK PO SCH ×2 (08:04→17:00)
[2016-11-27] MEDS: CINACALCET HCL 30 MG TABLET PO SCH (08:04)
[2016-11-27] MEDS: DOCUSATE SODIUM 100 MG CAPSULE PO SCH (08:04)
[2016-11-27] MEDS: CALCIUM CARB 600MG /VIT D 1 EACH TABLET PO SCH (08:04)
[2016-11-27] MEDS: PANTOPRAZOLE 40 MG/PACK PACK PO SCH (08:04)
[2016-11-27] MEDS: MIDODRINE HCL (5MG) 5 MG TABLET PO SCH ×2 (08:05→17:00)
[2016-11-27] MEDS: HYDROCODONE/APAP 5/325MG 1 EACH TABLET PO PRN ×3 (08:17→21:05)
[2016-11-27] MEDS: VIT B CMPLX 3/FA/VIT C/BIOTIN 1 TAB TABLET PO SCH (08:18)
[2016-11-27] MEDS: ASCORBIC ACID 500 MG TABLET PO SCH (08:18)
[2016-11-27] MEDS: CARVEDILOL 12.5 MG TABLET PO SCH ×2 (09:00→20:58)
[2016-11-27] MEDS: GENTAMICIN 0.1% OINT 15 GM TUBE TP SCH (09:00)
[2016-11-27] MEDS: INSULIN DETEMIR 100 UNIT/ML CARTRIDGE SQ SCH ×2 (09:21→21:00)
[2016-11-27] MEDS: SODIUM POLYSTYRENE SULFONATE 15 G/60 ML BOTTLE PO SCH (09:22)
[2016-11-27] MEDS: DAKINS QUARTER STRENGTH (0.125%) 480 ML BOTTLE TOP SCH (09:23)
[2016-11-27] MEDS: MUPIROCIN OINT 2% 22 GM TUBE TP SCH ×2 (09:25→21:06)
[2016-11-27 09:26] VITALS: BP 102/64
--- NOTE | 2016-11-27 09:27 | NUR ---
GENTAMICIN OINT NON ADMINISTERED, INSTRUCTION TO USE ALTERNATELY WITH BACTROBAN OINT IN LEFT FOOT.
[2016-11-27] MEDS ORDERED: IV SET PRIMARY PUMP SET 1 EA INFUS.SET MC ONE (13:00)
--- NOTE | 2016-11-27 14:05 | NUR ---
[facility] NOT AVAILABLE, INFORMED PHARMACY X3.
[2016-11-27 16:00] VITALS: BP 114/73
--- NOTE | 2016-11-27 18:58 | NUR ---
MS RN CLOSING NOTES PATIENT IN BED, A/O X4. NOT IN DISTRESS. BLOOD SUGAR MONITORED, NO S/S OF HYPO/HYPERGLYCEMIA. ON ANTIBIOTIC WITH NO ADVERSE REACTION, AFEBRILE. LEFT FOOT DRESSING CHANGED, NO S/S OF INFECTION, NO BLEEDING NOTED. NO C/O PAIN AT THIS TIME. CALL LIGHT WITHIN REACH. LABS IN AM ORDERED. WILL ENDORSE TO BATTERY STACKER RN FOR CONTINUITY OF CARE.
[2016-11-27 20:29] VITALS: BP 148/85
[2016-11-27] MEDS: SIMVASTATIN 40 MG TABLET PO SCH (20:58)
[2016-11-27] MEDS: *INSULIN REGULAR(HUMULIN R)HUM 100 UNIT/ML VIAL SQ PRN (21:01)
[2016-11-27] MEDS: LATANOPROST EYE DROP 0.005% 2.5 ML BOTTLE EACHEYE SCH (21:07)
[2016-11-27 22:00] VITALS: BP 148/85
[2016-11-28] MEDS: ALPRAZOLAM 1 MG TABLET PO SCH ×3 (05:47→21:16)
[2016-11-28] MEDS: PIPERACILLIN /TAZOBACTAM 2.25 G in IV D5W 50 ML IV SCH ×2 (05:47→12:13)
[2016-11-28] MEDS: BLOOD SUGAR DIAGNOSTIC 1 EACH STRIP VI SCH ×4 (05:48→21:19)
[2016-11-28] MEDS: HYDROCODONE/APAP 5/325MG 1 EACH TABLET PO PRN ×3 (05:55→21:17)
[2016-11-28 06:26] LABS: BASOPHILS # (AUTO) 0.1 /CMM (0.0-0.2); BASOPHILS % (AUTO) 0.9 % (0.0-2.0); EOSINOPHILS # (AUTO) 0.6 /CMM (0.0-0.7); EOSINOPHILS % (AUTO) 6.1 % (0.0-6.0); HEMATOCRIT 52 % (39-51); LYMPHOCYTES # (AUTO) 1.8 /CMM (0.8-4.8); LYMPHOCYTES % (AUTO) 19.3 % (20.0-44.0); MEAN CORPUSCULAR HEMOGLOBIN 31 PG (26.0-33.0); MEAN CORPUSCULAR HGB CONC 33 g/dl (31.0-36.0); MEAN CORPUSCULAR VOLUME 93 fL (80-96); MONOCYTES # (AUTO) 0.9 /CMM (0.1-1.30); MONOCYTES % (AUTO) 9.5 % (2.0-12.0); NEUTROPHILS % (AUTO) 64.2 % (43.0-81.0); PLATELET COUNT (AUTO) 149 /CMM (150-450); RDW COEFFICIENT OF VARIATION 14.6 (11.5-15.0); RED BLOOD CELL COUNT(AUTO) 5.57 MIL/uL (4.5-6.0); WHITE BLOOD COUNT (AUTO) 9.3 K/uL (4.3-11.0)
--- NOTE | 2016-11-28 06:28 | NUR ---
MS RN NOTE PATIENT STABLE. ALL NEEDS MET AND ATTENDED TO. BLOOD SUGAR 128. NO COVERAGE NEEDED. WILL CONTINUE TO MONITOR.
[2016-11-28 06:41] LABS: CALCIUM, SERUM 8.4 mg/dL (8.5-10.1); POTASSIUM 4.2 mmol/L (3.5-5.1)
[2016-11-28 06:43] LABS: MAGNESIUM 2.5 mg/dL (1.8-2.4)
[2016-11-28 06:44] LABS: CREATININE 12.5 mg/dL (0.6-1.3)
--- NOTE | 2016-11-28 07:30 | NUR ---
MR RN AM NOTES RECEIVED PATIENT AWAKE. A/O X4. ON ROOM AIR, TOLERATING WELL. NO SOB NOTED. RFA G22 FLUSHES WELL SITE CLEAR, S/P LEFT FOOT DEBRIDEMENT BY DR. SKINNER 11/26/16, CDI DRESSING IN PLACE, NO BLEEDING NOTED. NO C/O PAIN AT THIS TIME. BED TO CHAIR, PER PT, DR. SKINNER TO SEE HIM TODAY. CALL LIGHT WITHIN REACH. WILL CONT TO MONITOR.
[2016-11-28 08:00] VITALS: BP_SYST 100; BP_SYST 148; BP_DIAS 66; BP_DIAS 85
[2016-11-28] MEDS: SEVELAMER CARBONATE 800 MG TABLET PO SCH ×3 (08:14→17:06)
[2016-11-28] MEDS: INSULIN LISPRO/ASPART 100 UNIT/ML CARTRIDGE SQ SCH ×3 (08:15→17:21)
[2016-11-28] MEDS: LACTOBACILLUS RHAMNOSUS GG 1 EACH CAP.SPRINK PO SCH ×2 (08:23→17:06)
[2016-11-28] MEDS: DOCUSATE SODIUM 100 MG CAPSULE PO SCH (08:23)
[2016-11-28] MEDS: VIT B CMPLX 3/FA/VIT C/BIOTIN 1 TAB TABLET PO SCH (08:23)
[2016-11-28] MEDS: ASCORBIC ACID 500 MG TABLET PO SCH (08:23)
[2016-11-28] MEDS: CALCIUM CARB 600MG /VIT D 1 EACH TABLET PO SCH (08:23)
[2016-11-28] MEDS: CARVEDILOL 12.5 MG TABLET PO SCH ×2 (08:24→21:16)
[2016-11-28] MEDS: INSULIN DETEMIR 100 UNIT/ML CARTRIDGE SQ SCH ×2 (08:25→21:21)
[2016-11-28] MEDS: CINACALCET HCL 30 MG TABLET PO SCH (08:27)
[2016-11-28] MEDS: MIDODRINE HCL (5MG) 5 MG TABLET PO SCH ×2 (08:27→17:00)
[2016-11-28] MEDS: PANTOPRAZOLE 40 MG/PACK PACK PO SCH (08:27)
[2016-11-28] MEDS: DAKINS QUARTER STRENGTH (0.125%) 480 ML BOTTLE TOP SCH (08:54)
[2016-11-28] MEDS: MUPIROCIN OINT 2% 22 GM TUBE TP SCH ×2 (08:54→21:18)
[2016-11-28] MEDS: GENTAMICIN 0.1% OINT 15 GM TUBE TP SCH (08:55)
--- NOTE | 2016-11-28 09:30 | NUR ---
MS RN NOTES ADMINISTERED DUE MEDS.
--- NOTE | 2016-11-28 10:00 | NUR ---
MS RN NOTES CLARENCE HD NURSE AT BEDSIDE.
--- NOTE | 2016-11-28 11:18 | NUR ---
MS RN NOTES ACCUCHECK DONE. BS 171 MG/DL. 3 UNITS HUM R PER SLIDING SCALE GIVEN.
[2016-11-28] MEDS: INSULIN REGULAR, HUMAN 100 UNIT/ML 3 ML VIAL SQ PRN (11:22)
[2016-11-28] MEDS ORDERED: SECONDARY IV SET 1 EA INFUS.SET MC ONE (12:08)
--- NOTE | 2016-11-28 12:13 | NUR ---
MS RN NOTES ZOSYN IV ADMINISTERED VIA HD.
--- NOTE | 2016-11-28 12:20 | NUR ---
MS RN NOTES PER PT'S , PT WAS DIAPHORETIC, BS TAKEN 52 MG/DL. PATIENT WAS OFFERED THE LUNCH TRAY EARLIER BY PATY MCDONOUGH AFTER DIALYSIS BUT DID NOT WANT TO EAT.
--- NOTE | 2016-11-28 13:00 | NUR ---
MS RN NOTES HD COMPLETED WITH 4.5 LITERS OUT.
--- NOTE | 2016-11-28 13:45 | NUR ---
MS RN NOTES PER PATIENT, STATED THAT ANTIBIOTIC IV WAS NOT GIVEN TO HIM, PT INFORMED AND ASSURED THAT ATB IV WAS IN FACT GIVEN BY HD NURSE AT THE END OF HD ORDERED, AND PATIENT REFUSED TO LISTEN TO ANY EXPLANATIONS. CONFIRMED WITH HD NURSE CLARENCE ABOUT THE ATB IV, AND PER HIM, HE EXPLAINED TO THE PATIENT THAT IV ATB WILL BE GIVEN AT THE END OF HD. PATIENT REFUSED TO LISTEN TO ANY EXPLANATIONS AND DICTATED WHAT THE NURSE SHOULD DO ACCORDING TO WHAT HE WANTED.
[2016-11-28] MEDS ORDERED: LIDOCAINE 1%-EPI 1:100,000 20 ML VIAL TP ONE (15:00)
--- NOTE | 2016-11-28 15:15 | NUR ---
MS RN NOTES DR. SKINNER AT BEDSIDE FOR LEFT FOOT PARTIAL NAIL AVULSION AND DEBRIDEMENT OF ULCER.
[2016-11-28] MEDS ORDERED: LIDOCAINE 2% 20 ML MDV IJ ONE (15:30)
[2016-11-28 16:00] VITALS: BP_SYST 158; BP_DIAS 81; BP_DIAS 86
--- NOTE | 2016-11-28 17:08 | NUR ---
Discussed d/c planning with Shoshana, plan for discharge home tomorrow per MD with ISELA Pascal on HD day v2plact,spoke with Fabiano at the [facility] [phone] and faxed order including clinicals. Arranged wheelchair with [facility] [phone] spoke with Adriana, she will call back for delivery schedule, FWW was provided from central supply and delivered to patient bedside. refused homehealth arrangement. [facility] info provided to explore. Patient and are both aware and agreed with current d/c plan of care. Addendum: 11/28/16 at 1709 by KISHORE ZAVALETA RN Amended: Links added.
--- NOTE | 2016-11-28 17:12 | NUR ---
MS RN NOTES ACCUCHECK DONE. BS 168 MG/DL. PT REFUSED HUM SLIDING SCALE AND STATED THAT HE WILL JUST HAVE THE SCHEDULED HUMALOG 5 UNITS. PROAMATINE MEDS REFUSED BP 158/86.
[2016-11-28 18:00] VITALS: BP 158/86
--- NOTE | 2016-11-28 18:45 | NUR ---
MR RN CLOSING NOTES PATIENT RESTING IN BED, AWAKE. A/O X4. AT BEDSIDE. ON ROOM AIR, TOLERATING WELL. NO SOB NOTED. RFA G22 FLUSHES WELL SITE CLEAR, S/P LEFT FOOT PARTIAL NAIL AVULSION AND DEBRIDEMENT OF ULCER BY DR. SKINNER 11/28/16, CDI DRESSING IN PLACE, NO BLEEDING NOTED. NO C/O PAIN AT THIS TIME. BED TO CHAIR, NWB TO LEFT FOOT. ALL NEEDS MET. CALL LIGHT WITHIN REACH. PM CARE DONE. WILL ENDORSE TO NEXT SHIFT FOR JONO.
--- NOTE | 2016-11-28 19:30 | NUR ---
MR RN NOTES RECEIVED PATIENT AWAKE. A/O X4. ON ROOM AIR, TOLERATING WELL. NO SOB NOTED. RFA G22 FLUSHES WELL SITE CLEAR, S/P LEFT FOOT DEBRIDEMENT BY DR. SKINNER 11/26/16, CDI DRESSING IN PLACE, NO BLEEDING NOTED. NO C/O PAIN AT THIS TIME. BED TO CHAIR. CALL LIGHT WITHIN REACH. WILL CONT TO MONITOR.
[2016-11-28] MEDS: SIMVASTATIN 40 MG TABLET PO SCH (21:16)
[2016-11-28] MEDS: LATANOPROST EYE DROP 0.005% 2.5 ML BOTTLE EACHEYE SCH (21:18)
[2016-11-28] MEDS: *INSULIN REGULAR(HUMULIN R)HUM 100 UNIT/ML VIAL SQ PRN (21:22)
[2016-11-28] MEDS: LEVOFLOXACIN (250MG) 250 MG TABLET PO SCH (21:23)
[2016-11-28 22:00] VITALS: BP 158/86
[2016-11-29] MEDS: ALPRAZOLAM 1 MG TABLET PO SCH ×3 (04:38→21:22)
[2016-11-29] MEDS: HYDROCODONE/APAP 5/325MG 1 EACH TABLET PO PRN ×4 (04:38→21:58)
--- NOTE | 2016-11-29 06:08 | NUR ---
MS RN NOTE PATIENT STABLE. ALL NEEDS MET AND ATTENDED TO. BLOOD SUGAR 132. PATIENT REFUSING INSULIN AT THIS TIME. EDUCATED PATIENT ON IMPORTANCE OF TAKING INSULIN. PATIENT STATED THAT IF HIS BLOOD SUGAR WAS HIGHER, HE WOULD TAKE THE INSULIN, BUT DOESN'T FIND IT NECESSARY TO TAKE NOW. WILL ENDORSE TO DAY SHIFT FOR JONO.
[2016-11-29] MEDS: BLOOD SUGAR DIAGNOSTIC 1 EACH STRIP VI SCH ×4 (06:27→21:30)
[2016-11-29 06:44] LABS: BASOPHILS # (AUTO) 0.1 /CMM (0.0-0.2); BASOPHILS % (AUTO) 1.3 % (0.0-2.0); EOSINOPHILS # (AUTO) 0.4 /CMM (0.0-0.7); EOSINOPHILS % (AUTO) 5.2 % (0.0-6.0); HEMATOCRIT 51 % (39-51); HEMOGLOBIN 16.9 g/dL (13.5-17.5); LYMPHOCYTES # (AUTO) 1.9 /CMM (0.8-4.8); LYMPHOCYTES % (AUTO) 26.4 % (20.0-44.0); MEAN CORPUSCULAR HEMOGLOBIN 31 PG (26.0-33.0); MEAN CORPUSCULAR HGB CONC 33 g/dl (31.0-36.0); MEAN CORPUSCULAR VOLUME 93 fL (80-96); MONOCYTES # (AUTO) 1.1 /CMM (0.1-1.30); MONOCYTES % (AUTO) 15.7 % (2.0-12.0); NEUTROPHILS # (AUTO) 3.7 /CMM (1.8-8.9); NEUTROPHILS % (AUTO) 51.4 % (43.0-81.0); PLATELET COUNT (AUTO) 137 /CMM (150-450); RDW COEFFICIENT OF VARIATION 14.4 (11.5-15.0); RED BLOOD CELL COUNT(AUTO) 5.52 MIL/uL (4.5-6.0); WHITE BLOOD COUNT (AUTO) 7.2 K/uL (4.3-11.0)
[2016-11-29 06:59] LABS: POTASSIUM 3.4 mmol/L (3.5-5.1)
[2016-11-29 07:04] LABS: CREATININE 10.4 mg/dL (0.6-1.3)
[2016-11-29 07:06] LABS: MAGNESIUM 2.3 mg/dL (1.8-2.4); PHOSPHORUS 5.2 mg/dL (2.5-4.9)
[2016-11-29] MEDS: LACTOBACILLUS RHAMNOSUS GG 1 EACH CAP.SPRINK PO SCH ×2 (07:52→17:25)
[2016-11-29] MEDS: MIDODRINE HCL (5MG) 5 MG TABLET PO SCH ×2 (07:53→17:00)
[2016-11-29] MEDS: SEVELAMER CARBONATE 800 MG TABLET PO SCH ×3 (07:54→17:24)
[2016-11-29] MEDS: CARVEDILOL 12.5 MG TABLET PO SCH ×2 (07:54→21:19)
[2016-11-29] MEDS: VIT B CMPLX 3/FA/VIT C/BIOTIN 1 TAB TABLET PO SCH (07:55)
[2016-11-29] MEDS: CALCIUM CARB 600MG /VIT D 1 EACH TABLET PO SCH (07:55)
[2016-11-29] MEDS: SODIUM POLYSTYRENE SULFONATE 15 G/60 ML BOTTLE PO SCH (07:56)
[2016-11-29] MEDS: PANTOPRAZOLE 40 MG/PACK PACK PO SCH (07:56)
[2016-11-29] MEDS: DOCUSATE SODIUM 100 MG CAPSULE PO SCH (07:56)
[2016-11-29] MEDS: CINACALCET HCL 30 MG TABLET PO SCH (07:56)
[2016-11-29] MEDS: ASCORBIC ACID 500 MG TABLET PO SCH (07:57)
[2016-11-29] MEDS: DAKINS QUARTER STRENGTH (0.125%) 480 ML BOTTLE TOP SCH (07:58)
[2016-11-29] MEDS: GENTAMICIN 0.1% OINT 15 GM TUBE TP SCH (07:59)
[2016-11-29] MEDS: MUPIROCIN OINT 2% 22 GM TUBE TP SCH ×2 (07:59→21:21)
[2016-11-29 08:00] VITALS: BP 106/68
--- NOTE | 2016-11-29 08:00 | NUR ---
MR RN AM NOTES RECEIVED PATIENT AWAKE. A/O X4. ON ROOM AIR, TOLERATING WELL. NO SOB NOTED. RFA G22 FLUSHES WELL SITE CLEAR, WITH RAKEL HD CATH INTACT.S/P LEFT FOOT DEBRIDEMENT BY DR. SKINNER ON 11/26/16, CDI DRESSING IN PLACE, NO BLEEDING NOTED. NO C/O PAIN AT THIS TIME. AT BEDSIDE.CALL LIGHT WITHIN REACH. WILL CONT TO MONITOR.
[2016-11-29] MEDS: INSULIN LISPRO/ASPART 100 UNIT/ML CARTRIDGE SQ SCH ×4 (08:07→18:16)
[2016-11-29] MEDS: INSULIN DETEMIR 100 UNIT/ML CARTRIDGE SQ SCH ×2 (08:09→21:29)
[2016-11-29 08:30] LABS: EOSINOPHILS % (MANUAL) 5 % (0-4); LYMPHOCYTES % (MANUAL) 27 % (16-48); MONOCYTES % (MANUAL) 9 % (0-11.0); NEUTROPHILS % (MANUAL) 59 (42-76)
[2016-11-29 08:32] LABS: PLATELET ESTIMATE DECRE
[2016-11-29] MEDS: INSULIN REGULAR, HUMAN 100 UNIT/ML 3 ML VIAL SQ PRN (12:57)
[2016-11-29 16:00] VITALS: BP 116/74
--- NOTE | 2016-11-29 17:55 | NUR ---
PAGED DR BUSTAMANTE CLARIFYING PT'S DISCHARGE AND SHE STATED THAT PT WILL BE DISCHARGE TOMORROW.PROVIDED PT WHEELCHAIR AND BEDSIDE COMMODE WHEN DISCHARGE FOR HOME USE.PT WAS SEEN BY RANDA STONE TECHNICAL COMMUNICATION TEACHER WITH NO NEW ORDERS.PT DENIES ANY PAIN OR DISTRESS AND REFUSED INSULIN AND MIDODRINE TABLET SAYING HIS BLOOD SUGAR AND BP IS OK.
--- NOTE | 2016-11-29 18:08 | NUR ---
PT FINALLY AGREED TO HAVE HIS HUMALOG 5 UNITS SQ .WE WILL ADMINISTER HUMALOG 5 UNITS SQ.
--- NOTE | 2016-11-29 19:50 | NUR ---
MS RN INITIAL NOTES: RECEIVED REPORT FROM PATY Shaver RN. PT IN A WHEELCHAIR, AT BED SIDE. PT A/O X3 ON ROOM AIR RESPIRATION EVEN AND UNLABORED. DENIES ANY PAIN OR DISCOMFORT AT THIS TIME. RFA IV ACCESS PATENT AND FLUSHING WELL, ON HL. ALSO PT S/P LEFT FOOT DEBRIDEMENT ON 11/26/16 AND LEFT FOOT PARTIAL NAIL AVULSION DEBRIDEMENT ON 11/28/[address] SKINNER. DRESSING IN PLACED, C/D/I. PT HAS RIGHT CW PACEMAKER IN PLACED AND RAKEL AV FISTULA, POSITIVE FOR THRILL AND BRUIT. SAFETY PRECAUTIONS FOR FALL INITIATED CALL LIGHT IN REACH, WILL CONTINUE TO MONITOR
[2016-11-29 20:00] VITALS: BP 117/75
--- NOTE | 2016-11-29 20:10 | NUR ---
MS RN NOTES: PT'S DEVYN COMPLAINED THAT TOILET FLUSH ISNT WORKING, REQUESTED TO BE MOVE TO DIFFERENT ROOM, PT WAS MOVED TO ALL BELONGINGS SENT UPON TRANSFER.
[2016-11-29 20:42] VITALS: BP 117/75
[2016-11-29] MEDS: LATANOPROST EYE DROP 0.005% 2.5 ML BOTTLE EACHEYE SCH (21:20)
[2016-11-29] MEDS: SIMVASTATIN 40 MG TABLET PO SCH (21:20)
--- NOTE | 2016-11-29 21:20 | NUR ---
MS RN NOTES: PT EATING EGG SAND WHICH AND DEVYN BROUGHT SNACK/FRUITS STRAWBERRIES AND BLUEBERRIES AND PT EATING IT
[2016-11-29 21:30] VITALS: BP 142/78
[2016-11-29] MEDS: *INSULIN REGULAR(HUMULIN R)HUM 100 UNIT/ML VIAL SQ PRN (21:30)
--- NOTE | 2016-11-29 21:30 | NUR ---
MS RN NOTES: CHECKED BLOOD SUGAR AND REVEAL 120, NO INSULIN COVERAGE PER SLIDING SCALE, LEVEMIR 20UNITS GIVEN ORDERED, WILL MONITOR FOR ANY SIGNS AND SYMPTOMS OF HYPOGLYCEMIA OR HYPERGLYCEMIA,
--- NOTE | 2016-11-29 21:35 | NUR ---
MS RN NOTES: ALSO PT REQUESTED TO HAVE ALL HIS MEDICATION TAKEN AT 0 BECAUSE HE WOULD LIKE TO SLEEP, EDUCATION PROVIDED TO THE PT AND
--- NOTE | 2016-11-29 21:59 | NUR ---
MS RN NOTES: PT REQUESTED FOR NORCO STATED HE HAS PAIN 5/10 ON HIS LEFT TOE, PRN NORCO 5/325 MG TAB PO GIVEN ORDERED, EDUCATE PT REGARDING MEDICATION JESSICA EFFECT, WILL CONTINUE TO MONITOR AND REASSESS
--- NOTE | 2016-11-29 22:00 | NUR ---
MS RN NOTES: PT REFUSED LEFT FOOT DRESSING TO BE CHANGED, PT STATED DR PICKARD CHANGED HIS DRESSING TODAY, EDUCATION PROVIDED TO THE PT, DEVYN PT'S AT BED SIDE
--- NOTE | 2016-11-30 00:02 | NUR ---
MS RN NOTES: SEEN PT SLEEPING AT THIS TIME, APPEARS CALM AND COMFORTABLE, NO DISTRESS NOTED, WILL CONTINUE TO MONITOR
--- NOTE | 2016-11-30 05:00 | NUR ---
MS RN NOTES: PT HAS 0500AM XANAX HOWEVER PT SLEEPING, APPEARS COMFORTABLE, DIDNT GIVE MEDICATION AT THIS TIME BECAUSE PT ALREADY ASLEEP
[2016-11-30] MEDS: ALPRAZOLAM 1 MG TABLET PO SCH ×3 (06:13→21:14)
[2016-11-30] MEDS: BLOOD SUGAR DIAGNOSTIC 1 EACH STRIP VI SCH ×3 (06:14→22:34)
[2016-11-30] MEDS: INSULIN REGULAR, HUMAN 100 UNIT/ML 3 ML VIAL SQ PRN (06:15)
--- NOTE | 2016-11-30 06:16 | NUR ---
MS RN NOTES: CHECKED BLOOD SUGAR AND REVEAL 122, NO INSULIN COVERAGE PER SLIDING SCALE, ALSO PT REQUESTED FOR HIS XANAX, XANAX 2MG TAB ADMINISTERED TO THE PT AT THIS TIME
--- NOTE | 2016-11-30 06:45 | NUR ---
MS RN CLOSING NOTES: PT ON BED, AWAKE, NO SOB NOTED, LEFT FOOT/TOE DRESSING REMAINS C/D/I. OFFLOADED. RFA IV ACCESS REMAINS PATENT AND FLUSHING WELL, ON HL. VS REMAINS STABLE, NEEDS ATTENDED. POSSIBLE DC TODAY, EXIT CARE COMPLETED. POSSIBLE HD TODAY. SAFETY PRECAUTIONS FOR FALL REMAINS ENGAGED, CALL LIGHT IN REACH, WILL ENDORSE TO DAY RN FOR JONO.
[2016-11-30 07:20] LABS: CALCIUM, SERUM 7.8 mg/dL (8.5-10.1); POTASSIUM 3.2 mmol/L (3.5-5.1)
[2016-11-30 07:22] LABS: CREATININE 11.9 mg/dL (0.6-1.3)
--- NOTE | 2016-11-30 07:58 | NUR ---
MS RN MORNING NOTES: RECEIVED PATIENT RESTING IN BED AWAKE AND ORIENTED X4, ON ROOM AIR BREATHING EVEN AND UNLABORED. NO COMPLAINTS OF PAIN OR DISCOMFORT AT THIS TIME. RFA IV ACCESS PATENT AND FLUSHING WELL, ON HL. S/P LEFT FOOT DEBRIDEMENT ON 11/26/16 AND LEFT FOOT PARTIAL NAIL AVULSION DEBRIDEMENT ON 11/28/[address] SKINNER. DRESSING IN PLACED, C/D/I. RAKEL AV FISTULA, POSITIVE FOR THRILL AND BRUIT. PLAN OF CARE DISCUSSED AND AGREED, SAFETY PRECAUTIONS RENDERED, CALL LIGHT IN REACH, WILL CONTINUE TO MONITOR
[2016-11-30 08:00] VITALS: BP 124/78
[2016-11-30] MEDS: INSULIN DETEMIR 100 UNIT/ML CARTRIDGE SQ SCH ×2 (08:14→21:19)
[2016-11-30] MEDS: INSULIN LISPRO/ASPART 100 UNIT/ML CARTRIDGE SQ SCH ×3 (08:15→17:49)
[2016-11-30] MEDS: VIT B CMPLX 3/FA/VIT C/BIOTIN 1 TAB TABLET PO SCH (08:19)
[2016-11-30] MEDS: LACTOBACILLUS RHAMNOSUS GG 1 EACH CAP.SPRINK PO SCH ×2 (08:19→17:45)
[2016-11-30] MEDS: DOCUSATE SODIUM 100 MG CAPSULE PO SCH (08:19)
[2016-11-30] MEDS: CALCIUM CARB 600MG /VIT D 1 EACH TABLET PO SCH (08:19)
[2016-11-30] MEDS: SEVELAMER CARBONATE 800 MG TABLET PO SCH ×3 (08:19→17:45)
[2016-11-30] MEDS: ASCORBIC ACID 500 MG TABLET PO SCH (08:19)
[2016-11-30] MEDS: CINACALCET HCL 30 MG TABLET PO SCH (08:19)
[2016-11-30] MEDS: MIDODRINE HCL (5MG) 5 MG TABLET PO SCH ×2 (08:20→17:00)
[2016-11-30] MEDS: HYDROCODONE/APAP 5/325MG 1 EACH TABLET PO PRN ×4 (08:21→21:55)
[2016-11-30] MEDS: PANTOPRAZOLE 40 MG/PACK PACK PO SCH (08:22)
[2016-11-30] MEDS: CARVEDILOL 12.5 MG TABLET PO SCH ×2 (08:22→21:14)
[2016-11-30] MEDS: MUPIROCIN OINT 2% 22 GM TUBE TP SCH ×2 (08:23→21:15)
[2016-11-30] MEDS: DAKINS QUARTER STRENGTH (0.125%) 480 ML BOTTLE TOP SCH (08:23)
[2016-11-30] MEDS: GENTAMICIN 0.1% OINT 15 GM TUBE TP SCH (08:24)
--- NOTE | 2016-11-30 14:03 | NUR ---
WOUND MS NOTES PATIENT RECEIVING DIALYSIS AT THIS TIME.
[2016-11-30] MEDS ORDERED: HEPARIN SODIUM, PORCINE 5000 UNITS/1 ML VIAL IV ONE (14:30)
[2016-11-30 16:00] VITALS: BP 156/90
--- NOTE | 2016-11-30 16:57 | NUR ---
MS/RN NOTES PATIENT RECEIVED IV HEPARIN WITH DIALYSIS , TOTAL OUTPUT 4.5L
[2016-11-30] MEDS ORDERED: IV SET PRIMARY PUMP SET 1 EA INFUS.SET MC ONE (17:14)
[2016-11-30] MEDS: VANCOMYCIN 500 MG in IV D5W 100 ML IV PRN (17:49)
--- NOTE | 2016-11-30 19:10 | NUR ---
WOUND CLOSING NOTES PATIENT RESTING IN BED COMFORTABLY. ALL NEEDS MET AND ATTENDED, ALL DUE MEDS GIVEN. NO DISTRESS/DISCOMFORT NOTED. PAIN MANAGED WITH NORCO 5-325 EVERY 4 HOURS. DIALYZED TODAY AND RECIEVED A BAG OF VANCOMYCIN. .SAFETY MEASURES RENDERED, CALL LIGHT PLACED WITHIN REACH. WILL ENDORSE CARE TO SOCK BOARDER FOR JONO
--- NOTE | 2016-11-30 19:40 | NUR ---
MS RN INITIAL NOTES: RECEIVED REPORT FROM DOMINICK JACKSON. PT ON BED, AT BED SIDE. PT A/O X3 ON ROOM AIR RESPIRATION EVEN AND UNLABORED. S/P HD TODAY WITH 4.5 L OUT.PT HAS RIGHT CW PACEMAKER IN PLACED AND RAKEL AV FISTULA, POSITIVE FOR THRILL AND BRUIT. DENIES ANY PAIN OR DISCOMFORT AT THIS TIME. RFA IV ACCESS PATENT AND FLUSHING WELL, ON HL. PT S/P LEFT FOOT DEBRIDEMENT ON 11/26/16 AND LEFT FOOT PARTIAL NAIL AVULSION DEBRIDEMENT ON 11/28/[address] SKINNER. DRESSING IN PLACED, C/D/I. DRESSING CHANGED BY DR PICKARD IN AM. SAFETY PRECAUTIONS FOR FALL INITIATED CALL LIGHT IN REACH, WILL CONTINUE TO MONITOR
[2016-11-30 19:56] VITALS: BP 134/68
[2016-11-30 20:00] VITALS: BP 134/68
--- NOTE | 2016-11-30 20:30 | NUR ---
MS RN NOTES: PT REQUESTED TO AMBULATE AROUND THE HALLWAY, ASSISTED BY ENGINEERING LABORATORY TECHNICIAN AND PT'S , ALSO REQUESTED TO PRACTICE USING HIS WHEELCHAIR PER PT RECOMMENDATION TO USE WHEELCHAIR AT HOME
[2016-11-30] MEDS: LEVOFLOXACIN (250MG) 250 MG TABLET PO SCH (21:13)
[2016-11-30] MEDS: SIMVASTATIN 40 MG TABLET PO SCH (21:14)
[2016-11-30] MEDS: LATANOPROST EYE DROP 0.005% 2.5 ML BOTTLE EACHEYE SCH (21:16)
[2016-11-30] MEDS: *INSULIN REGULAR(HUMULIN R)HUM 100 UNIT/ML VIAL SQ PRN (21:17)
--- NOTE | 2016-11-30 21:19 | NUR ---
MS RN NOTES: CHECKED BLOOD SUGAR AND REVEAL 125, NO INSULIN COVERAGE GIVEN PER SLIDING SCALE, LEVEMIR 20 UNITS GIVEN ORDERED
--- NOTE | 2016-11-30 21:56 | NUR ---
MS RN NOTES: PT C/O 01/29 PAIN ON HIS LEFT TOE, REQUESTING FOR HIS NORCO, PRN NORCO 5/325 MG TAB PO ADMINISTERED TO THE PT AT THIS TIME, WILL CONTINUE TO MONITOR AND REASSESS
--- NOTE | 2016-12-01 00:16 | NUR ---
ms rn notes: seen pt sleeping at this time, no apparent distress noted
--- NOTE | 2016-12-01 04:30 | NUR ---
ms rn notes: seen pt awake, doing some exercise,
[2016-12-01] MEDS: ALPRAZOLAM 1 MG TABLET PO SCH ×2 (05:01→12:10)
--- NOTE | 2016-12-01 06:00 | NUR ---
ms rn notes: checked blood sugar and reveal 173, per pt to give the insulin before he receive his breakfast tray
[2016-12-01 06:34] LABS: BASOPHILS # (AUTO) 0.1 /CMM (0.0-0.2); BASOPHILS % (AUTO) 1.6 % (0.0-2.0); EOSINOPHILS # (AUTO) 0.4 /CMM (0.0-0.7); HEMATOCRIT 53 % (39-51); HEMOGLOBIN 17.7 g/dL (13.5-17.5); LYMPHOCYTES # (AUTO) 2.1 /CMM (0.8-4.8); LYMPHOCYTES % (AUTO) 28.4 % (20.0-44.0); MEAN CORPUSCULAR HEMOGLOBIN 31 PG (26.0-33.0); MEAN CORPUSCULAR HGB CONC 33 g/dl (31.0-36.0); MEAN CORPUSCULAR VOLUME 92 fL (80-96); MONOCYTES # (AUTO) 0.8 /CMM (0.1-1.30); MONOCYTES % (AUTO) 11.3 % (2.0-12.0); NEUTROPHILS # (AUTO) 3.9 /CMM (1.8-8.9); NEUTROPHILS % (AUTO) 52.7 % (43.0-81.0); PLATELET COUNT (AUTO) 171 /CMM (150-450); RDW COEFFICIENT OF VARIATION 14.4 (11.5-15.0); WHITE BLOOD COUNT (AUTO) 7.4 K/uL (4.3-11.0)
[2016-12-01] MEDS: INSULIN REGULAR, HUMAN 100 UNIT/ML 3 ML VIAL SQ PRN ×2 (06:59→12:12)
[2016-12-01] MEDS: BLOOD SUGAR DIAGNOSTIC 1 EACH STRIP VI SCH ×2 (06:59→12:14)
[2016-12-01 07:00] LABS: CALCIUM, SERUM 8.2 mg/dL (8.5-10.1); MAGNESIUM 2.4 mg/dL (1.8-2.4); PHOSPHORUS 5.6 mg/dL (2.5-4.9); POTASSIUM 3.6 mmol/L (3.5-5.1)
--- NOTE | 2016-12-01 07:00 | NUR ---
MS RN NOTES: CHECK BLOOD SUGAR AND REVEAL 173, 3UNITS OF INSULIN GIVEN PER SLIDING SCALE, WILL MONITOR FOR ANY S/S OF HYPOGLYCEMIA
[2016-12-01 07:03] LABS: CREATININE 10.7 mg/dL (0.6-1.3)
[2016-12-01] MEDS: MIDODRINE HCL (5MG) 5 MG TABLET PO SCH (07:06)
--- NOTE | 2016-12-01 07:08 | NUR ---
MS RN NOTES: CHECKED PT VITAL SIGN BECAUSE HE STATED HE FEELS LIGHT HEADED, VS TAKEN AND REVEAL 91/60 HR 66 SPO2 92% RR 18 T 97.9, PT REQUESTED TO TAKE HIS MIDODRINE AT THIS TIME, HE STATED HE USUALLY TAKE IT ONCE HIS BP IS LOW. EDUCATION PROVIDED TO THE PT,
--- NOTE | 2016-12-01 07:11 | NUR ---
ms rn closing notes: pt sitting in a chair, awake, no apparent distress noted, denies any pain discomfort at this time. rfa iv access remains patent and flushing well, on hl. for possible dc today. exit care completed. vs remains stable, needs attended. bed brakes remains engaged, bed in lowest position, call light in reach. will endorse to day rn for gema.
--- NOTE | 2016-12-01 07:26 | NUR ---
MS RN INITIAL NOTES: PATIENT RECEIVED AWAKE AND SITTING ON HIS BED IN NO ACUTE SIGNS OF DISTRESS. ALERT AND ORIENTED TO ALL STIMULI, DENIES ANY PAIN OR DISCOMFORTS AT THIS TIME. ON ROOM AIR, TOLERATED WITH NO SOB NOTED. PT HAS RIGHT CW PACEMAKER IN PLACED AND RAKEL AV FISTULA, POSITIVE FOR THRILL AND BRUIT. RFA IV ACCESS INTACT AND PATENT. PT S/P LEFT FOOT DEBRIDEMENT ON 11/26/16 AND LEFT FOOT PARTIAL NAIL AVULSION DEBRIDEMENT ON 11/28/[address] SKINNER. DRESSING IN PLACED, C/D/I. CALL LIGHT WITHIN REACH OF PATIENT. BED LOCKED AND IN LOW POSSIBLE POSITION FOR SAFETY. WILL CONTINUE TO MONITOR ACCORDINGLY.
[2016-12-01 08:00] VITALS: BP 91/60
[2016-12-01] MEDS: INSULIN LISPRO/ASPART 100 UNIT/ML CARTRIDGE SQ SCH ×2 (08:01→12:13)
[2016-12-01] MEDS: DOCUSATE SODIUM 100 MG CAPSULE PO SCH (08:02)
[2016-12-01] MEDS: CALCIUM CARB 600MG /VIT D 1 EACH TABLET PO SCH (08:02)
[2016-12-01] MEDS: ASCORBIC ACID 500 MG TABLET PO SCH (08:02)
[2016-12-01] MEDS: CINACALCET HCL 30 MG TABLET PO SCH (08:03)
[2016-12-01] MEDS: LACTOBACILLUS RHAMNOSUS GG 1 EACH CAP.SPRINK PO SCH (08:03)
[2016-12-01] MEDS: PANTOPRAZOLE 40 MG/PACK PACK PO SCH (08:03)
[2016-12-01 08:04] VITALS: BP 91/60
[2016-12-01] MEDS: SEVELAMER CARBONATE 800 MG TABLET PO SCH ×2 (08:04→12:10)
[2016-12-01] MEDS: CARVEDILOL 12.5 MG TABLET PO SCH (08:04)
[2016-12-01] MEDS: VIT B CMPLX 3/FA/VIT C/BIOTIN 1 TAB TABLET PO SCH (08:04)
[2016-12-01] MEDS: GENTAMICIN 0.1% OINT 15 GM TUBE TP SCH (08:06)
[2016-12-01] MEDS: MUPIROCIN OINT 2% 22 GM TUBE TP SCH (08:06)
[2016-12-01] MEDS: DAKINS QUARTER STRENGTH (0.125%) 480 ML BOTTLE TOP SCH (08:06)
[2016-12-01] MEDS: INSULIN DETEMIR 100 UNIT/ML CARTRIDGE SQ SCH (08:09)
[2016-12-01] MEDS: SODIUM POLYSTYRENE SULFONATE 15 G/60 ML BOTTLE PO SCH (09:36)
[2016-12-01] MEDS: HYDROCODONE/APAP 5/325MG 1 EACH TABLET PO PRN ×2 (09:40→13:43)
[2016-12-01] MEDS ORDERED: LEVO250T2 PO (12:40)
[2016-12-01] MEDS ORDERED: VANC1VIA XX (12:40)
--- NOTE | 2016-12-01 14:07 | NUR ---
MS RN DISCHARGED NOTES PATIENT DISCHARGED HOME IN STABLE CONDITION. HE IS ALERT/ORIENTED X4 AND LEFT UNIT VIA WHEELCHAIR ACCOMPANIED BY . ON ROOM AIR, NO S/S OF SOB NOTED. VITAL SIGNS CHECKED AND RECORDED. PHOTOS OF SKIN WOUND AND DISCOLORATIONS TAKEN AND FILED IN CHART. BELONGINGS CHECKED, COUNTED AND SIGNED FORMED. PRESCRIPTIONS GIVEN ORDERED. HEALTH TEACHINGS GIVEN PATIENT AND AND VERBALIZED UNDERSTANDING. MD, CHARGE NURSE AND NURSE CHARGE OPERATOR AWARE OF DISCHARGE.
== END 2016-12-01 13:40 | disposition home health service (06) | DRG 570 ==
LOC: WOUND2 15:44
PROVIDERS: ADMIT Podiatrist Foot & Ankle Surgery; ATTEND Family Medicine
PROC: 0JBR0ZZ Excision of Left Foot Subcutaneous Tissue and Fascia, Open Approach (ICD-10-PCS; 2016-11-24)
PROC: 5A1D60Z (ICD-10-PCS; 2016-11-24)
PROC: 0LBW0ZZ Excision of Left Foot Tendon, Open Approach (ICD-10-PCS; principal; 2016-11-26)
PROC: 0LBW0ZZ Excision of Left Foot Tendon, Open Approach (ICD-10-PCS; 2016-11-28)
PROC: 0HDNXZZ Extraction of Left Foot Skin, External Approach (ICD-10-PCS; 2016-11-28)
PROC: 0HDRXZZ Extraction of Toe Nail, External Approach (ICD-10-PCS; 2016-11-28)
DX: L03.116 Cellulitis of left lower limb (principal); N18.6 End stage renal disease; I12.0 Hypertensive chronic kidney disease with stage 5 chronic kidney disease or end stage renal disease; E11.621 Type 2 diabetes mellitus with foot ulcer; Z99.2 Dependence on renal dialysis; E11.22 Type 2 diabetes mellitus with diabetic chronic kidney disease; E87.6 Hypokalemia; E78.5 Hyperlipidemia, unspecified; Z95.0 Presence of cardiac pacemaker; E83.9 Disorder of mineral metabolism, unspecified; L97.529 Non-pressure chronic ulcer of other part of left foot with unspecified severity; E11.42 Type 2 diabetes mellitus with diabetic polyneuropathy; L03.032 Cellulitis of left toe; L60.0 Ingrowing nail
CPT/HCPCS: 36415; 73700-TC; 80048-TC; 80202-TC; 82962-TC; 83735-TC; 84100-TC; 85025-TC; 85652-TC; 87070-TC; 87081-TC; 87186-TC; 90935-TC; 97001-TC; A6402; A6403; J1644; J1815; J2543; J3370; J3490; J7050; J7060; Z7610

== ENCOUNTER 2016-12-06 14:26 | Outpatient (CLI) | payer MEDICARE, BC ==
[~2016-12-06 14:26] MED LIST changes: +ALBU6.7H IH; +BRIM5DRO2 OP; +BRIM5DRO3 EACHEYE; +CALC-838 PO; +CARV12.52 PO; -GABA-534 PO; -INSU100C7 SQ; +INSU100V10 SQ; -IPRA12.9 IH; +LEVO250T2 PO; -SERT50TA PO; +SILD50TA PO; +VANC1VIA XX; +VIT1TABL46 PO
== END 2016-12-06 23:59 | disposition home or self-care (01) ==
LOC: WOU 14:26
PROVIDERS: ATTEND Podiatrist Foot & Ankle Surgery
DX: E11.621 Type 2 diabetes mellitus with foot ulcer (principal); L97.521 Non-pressure chronic ulcer of other part of left foot limited to breakdown of skin; E66.9 Obesity, unspecified; Z68.29 Body mass index [BMI] 29.0-29.9, adult; Z71.3 Dietary counseling and surveillance; E11.40 Type 2 diabetes mellitus with diabetic neuropathy, unspecified; Z83.3 Family history of diabetes mellitus; Z84.1 Family history of disorders of kidney and ureter; E11.22 Type 2 diabetes mellitus with diabetic chronic kidney disease; I13.2 Hypertensive heart and chronic kidney disease with heart failure and with stage 5 chronic kidney disease, or end stage renal disease; N18.6 End stage renal disease; I50.9 Heart failure, unspecified; Z99.2 Dependence on renal dialysis; Z95.810 Presence of automatic (implantable) cardiac defibrillator
CPT/HCPCS: 11042; A6402

== ENCOUNTER 2017-02-16 14:15 | Outpatient (CLI) | payer MEDICARE, BC | END 2017-02-16 23:59 | disposition home or self-care (01) | LOC: WOU 14:15 | PROVIDERS: ATTEND Podiatrist Foot & Ankle Surgery | DX: E11.621 Type 2 diabetes mellitus with foot ulcer (principal); L97.429 Non-pressure chronic ulcer of left heel and midfoot with unspecified severity; E11.42 Type 2 diabetes mellitus with diabetic polyneuropathy; E11.22 Type 2 diabetes mellitus with diabetic chronic kidney disease; I13.2 Hypertensive heart and chronic kidney disease with heart failure and with stage 5 chronic kidney disease, or end stage renal disease; I50.9 Heart failure, unspecified; N18.6 End stage renal disease; Z99.2 Dependence on renal dialysis; Z87.891 Personal history of nicotine dependence; Z83.3 Family history of diabetes mellitus; Z82.49 Family history of ischemic heart disease and other diseases of the circulatory system; Z83.6 Family history of other diseases of the respiratory system; Z95.810 Presence of automatic (implantable) cardiac defibrillator; Z79.899 Other long term (current) drug therapy | CPT/HCPCS: A6402; G0463 ==

== ENCOUNTER → 2017-02-20 | Outpatient (CLI) | payer MEDICARE, BC | LOC: WOU 08:57 | PROVIDERS: ATTEND Podiatrist Foot & Ankle Surgery | DX: I70.262 Atherosclerosis of native arteries of extremities with gangrene, left leg (principal); I70.201 Unspecified atherosclerosis of native arteries of extremities, right leg | CPT/HCPCS: 93970-TC ==

== ENCOUNTER 2017-03-02 13:41 | Outpatient (CLI) | payer MEDICARE, BC | END 2017-03-02 23:59 | disposition home or self-care (01) | LOC: WOU 13:41 | PROVIDERS: ATTEND Podiatrist Foot & Ankle Surgery | DX: E11.621 Type 2 diabetes mellitus with foot ulcer (principal); L97.423 Non-pressure chronic ulcer of left heel and midfoot with necrosis of muscle; L90.9 Atrophic disorder of skin, unspecified; E11.40 Type 2 diabetes mellitus with diabetic neuropathy, unspecified | CPT/HCPCS: 11043; A6402 ==

== ENCOUNTER 2017-03-09 13:30 | Outpatient (CLI) | payer MEDICARE, BC | END 2017-03-09 23:59 | disposition home or self-care (01) | LOC: WOU 13:30 | PROVIDERS: ATTEND Podiatrist Foot & Ankle Surgery | DX: E11.621 Type 2 diabetes mellitus with foot ulcer (principal); L97.423 Non-pressure chronic ulcer of left heel and midfoot with necrosis of muscle; E11.51 Type 2 diabetes mellitus with diabetic peripheral angiopathy without gangrene; E11.40 Type 2 diabetes mellitus with diabetic neuropathy, unspecified; Z79.899 Other long term (current) drug therapy | CPT/HCPCS: 11043; 87070; 87077; 87106; 87186 ×2; A6402 ==

== ENCOUNTER 2017-03-16 13:45 | Outpatient (CLI) | payer MEDICARE, BC | END 2017-03-16 23:59 | disposition home or self-care (01) | LOC: WOU 13:45 | PROVIDERS: ATTEND Podiatrist Foot & Ankle Surgery | DX: E11.621 Type 2 diabetes mellitus with foot ulcer (principal); L97.423 Non-pressure chronic ulcer of left heel and midfoot with necrosis of muscle; E11.51 Type 2 diabetes mellitus with diabetic peripheral angiopathy without gangrene; E11.40 Type 2 diabetes mellitus with diabetic neuropathy, unspecified | CPT/HCPCS: 11043; A6402 ==

== ENCOUNTER 2017-03-23 13:29 | Outpatient (CLI) | payer MEDICARE, BC | END 2017-03-23 23:59 | disposition home or self-care (01) | LOC: WOU 13:29 | PROVIDERS: ATTEND Podiatrist Foot & Ankle Surgery | DX: E11.621 Type 2 diabetes mellitus with foot ulcer (principal); L97.423 Non-pressure chronic ulcer of left heel and midfoot with necrosis of muscle; E11.40 Type 2 diabetes mellitus with diabetic neuropathy, unspecified | CPT/HCPCS: 11043; A6402 ==

== ENCOUNTER 2017-03-30 13:30 | Outpatient (CLI) | payer MEDICARE, BC | END 2017-03-30 23:59 | disposition home or self-care (01) | LOC: WOU 13:30 | PROVIDERS: ATTEND Podiatrist Foot & Ankle Surgery | DX: E11.621 Type 2 diabetes mellitus with foot ulcer (principal); L97.423 Non-pressure chronic ulcer of left heel and midfoot with necrosis of muscle; E11.22 Type 2 diabetes mellitus with diabetic chronic kidney disease; N18.6 End stage renal disease; Z99.2 Dependence on renal dialysis; E11.42 Type 2 diabetes mellitus with diabetic polyneuropathy; L90.9 Atrophic disorder of skin, unspecified | CPT/HCPCS: 11043; A6402 ==

== ENCOUNTER 2017-04-06 14:23 | Outpatient (CLI) | payer MEDICARE, BC | END 2017-04-08 23:59 | disposition home or self-care (01) | LOC: WOU 14:23 | PROVIDERS: ATTEND Podiatrist Foot & Ankle Surgery | DX: E11.621 Type 2 diabetes mellitus with foot ulcer (principal); L97.423 Non-pressure chronic ulcer of left heel and midfoot with necrosis of muscle; E11.22 Type 2 diabetes mellitus with diabetic chronic kidney disease; N18.6 End stage renal disease; Z99.2 Dependence on renal dialysis; E11.42 Type 2 diabetes mellitus with diabetic polyneuropathy | CPT/HCPCS: 11043; 87070; 87077; 87106; 87186; 97605; A6402 ==

== ENCOUNTER 2017-04-10 11:00 | Outpatient (CLI) | payer MEDICARE, BC | END 2017-04-10 23:59 | disposition home or self-care (01) | LOC: WOU 11:00 | PROVIDERS: ATTEND Podiatrist Foot & Ankle Surgery | DX: L97.523 Non-pressure chronic ulcer of other part of left foot with necrosis of muscle (principal); E11.42 Type 2 diabetes mellitus with diabetic polyneuropathy; E11.22 Type 2 diabetes mellitus with diabetic chronic kidney disease; N18.6 End stage renal disease; Z99.2 Dependence on renal dialysis; R53.1 Weakness; I95.3 Hypotension of hemodialysis | CPT/HCPCS: 11043; 97605; A6402 ==

== ENCOUNTER 2017-04-13 14:03 | Outpatient (CLI) | payer MEDICARE, BC | END 2017-04-13 23:59 | disposition home or self-care (01) | LOC: WOU 14:03 | PROVIDERS: ATTEND Podiatrist Foot & Ankle Surgery | DX: E11.621 Type 2 diabetes mellitus with foot ulcer (principal); L97.423 Non-pressure chronic ulcer of left heel and midfoot with necrosis of muscle; E11.42 Type 2 diabetes mellitus with diabetic polyneuropathy; E11.22 Type 2 diabetes mellitus with diabetic chronic kidney disease; N18.6 End stage renal disease; Z99.2 Dependence on renal dialysis; R60.0 Localized edema | CPT/HCPCS: 11043; 97605; A6402 ==

== ENCOUNTER 2017-04-17 09:10 | Outpatient (CLI) | payer MEDICARE, BC | END 2017-04-17 23:59 | disposition home or self-care (01) | LOC: WOU 09:10 | PROVIDERS: ATTEND Podiatrist Foot & Ankle Surgery | DX: E11.621 Type 2 diabetes mellitus with foot ulcer (principal); L97.423 Non-pressure chronic ulcer of left heel and midfoot with necrosis of muscle; E11.22 Type 2 diabetes mellitus with diabetic chronic kidney disease; N18.6 End stage renal disease; Z99.2 Dependence on renal dialysis; E11.40 Type 2 diabetes mellitus with diabetic neuropathy, unspecified | CPT/HCPCS: 11043; 97605-TC; A6402 ==

== ENCOUNTER 2017-04-20 13:50 | Outpatient (CLI) | payer MEDICARE, BC | END 2017-04-20 23:59 | disposition home or self-care (01) | LOC: WOU 13:50 | PROVIDERS: ATTEND Podiatrist Foot & Ankle Surgery | DX: E11.22 Type 2 diabetes mellitus with diabetic chronic kidney disease (principal); E11.621 Type 2 diabetes mellitus with foot ulcer; L97.423 Non-pressure chronic ulcer of left heel and midfoot with necrosis of muscle; N18.6 End stage renal disease; Z99.2 Dependence on renal dialysis; E11.40 Type 2 diabetes mellitus with diabetic neuropathy, unspecified | CPT/HCPCS: 11043; 97605-TC; A6402 ==

== ENCOUNTER 2017-04-24 13:24 | Outpatient (CLI) | payer MEDICARE, BC | END 2017-04-24 23:59 | disposition home or self-care (01) | LOC: WOU 13:24 | PROVIDERS: ATTEND Podiatrist Foot & Ankle Surgery | DX: E11.621 Type 2 diabetes mellitus with foot ulcer (principal); L97.423 Non-pressure chronic ulcer of left heel and midfoot with necrosis of muscle; K59.00 Constipation, unspecified; E11.22 Type 2 diabetes mellitus with diabetic chronic kidney disease; N18.6 End stage renal disease; Z99.2 Dependence on renal dialysis; E11.40 Type 2 diabetes mellitus with diabetic neuropathy, unspecified | CPT/HCPCS: 11043; A6402; 97605-TC ==

== ENCOUNTER 2017-05-01 13:16 | Outpatient (CLI) | payer MEDICARE, BC | END 2017-05-01 23:59 | disposition home or self-care (01) | LOC: WOU 13:16 | PROVIDERS: ATTEND Podiatrist Foot & Ankle Surgery | DX: E11.621 Type 2 diabetes mellitus with foot ulcer (principal); L97.421 Non-pressure chronic ulcer of left heel and midfoot limited to breakdown of skin; E11.22 Type 2 diabetes mellitus with diabetic chronic kidney disease; N18.6 End stage renal disease; Z99.2 Dependence on renal dialysis; E11.40 Type 2 diabetes mellitus with diabetic neuropathy, unspecified | CPT/HCPCS: 11043; A6402 ×2 ==

== ENCOUNTER 2017-05-04 13:20 | Outpatient (CLI) | payer MEDICARE, BC | END 2017-05-04 23:59 | disposition home or self-care (01) | LOC: WOU 13:20 | PROVIDERS: ATTEND Podiatrist Foot & Ankle Surgery | DX: E11.621 Type 2 diabetes mellitus with foot ulcer (principal); L97.423 Non-pressure chronic ulcer of left heel and midfoot with necrosis of muscle; E11.40 Type 2 diabetes mellitus with diabetic neuropathy, unspecified; E11.22 Type 2 diabetes mellitus with diabetic chronic kidney disease; N18.6 End stage renal disease; Z99.2 Dependence on renal dialysis | CPT/HCPCS: 11043; A6402; 11042 ==

== ENCOUNTER 2017-05-09 13:04 | Outpatient (CLI) | payer MEDICARE, BC | END 2017-05-09 23:59 | disposition home or self-care (01) | LOC: WOU 13:04 | PROVIDERS: ATTEND Specialist | DX: E11.621 Type 2 diabetes mellitus with foot ulcer (principal); L97.425 Non-pressure chronic ulcer of left heel and midfoot with muscle involvement without evidence of necrosis; M65.071 Abscess of tendon sheath, right ankle and foot; E11.42 Type 2 diabetes mellitus with diabetic polyneuropathy; Z95.810 Presence of automatic (implantable) cardiac defibrillator; E11.22 Type 2 diabetes mellitus with diabetic chronic kidney disease; I13.2 Hypertensive heart and chronic kidney disease with heart failure and with stage 5 chronic kidney disease, or end stage renal disease; I50.9 Heart failure, unspecified; N18.6 End stage renal disease; Z99.2 Dependence on renal dialysis; Z87.891 Personal history of nicotine dependence | CPT/HCPCS: 36415; 73630; 85652; 86140; A6402; G0463 ==

== ENCOUNTER 2017-05-11 13:35 | Outpatient (CLI) | payer MEDICARE, BC | END 2017-05-11 23:59 | disposition home or self-care (01) | LOC: WOU 13:35 | PROVIDERS: ATTEND Podiatrist Foot & Ankle Surgery | DX: E11.621 Type 2 diabetes mellitus with foot ulcer (principal); L97.423 Non-pressure chronic ulcer of left heel and midfoot with necrosis of muscle; E11.40 Type 2 diabetes mellitus with diabetic neuropathy, unspecified; E11.22 Type 2 diabetes mellitus with diabetic chronic kidney disease; N18.6 End stage renal disease; Z99.2 Dependence on renal dialysis | CPT/HCPCS: 11043; A6402 ×2 ==

== ENCOUNTER 2017-05-18 12:07 | Outpatient (CLI) | payer MEDICARE, BC | END 2017-05-18 23:59 | disposition home or self-care (01) | LOC: WOU 12:07 | PROVIDERS: ATTEND Podiatrist Foot & Ankle Surgery | DX: E11.621 Type 2 diabetes mellitus with foot ulcer (principal); E11.22 Type 2 diabetes mellitus with diabetic chronic kidney disease; E11.42 Type 2 diabetes mellitus with diabetic polyneuropathy; L97.423 Non-pressure chronic ulcer of left heel and midfoot with necrosis of muscle; N18.6 End stage renal disease; L03.116 Cellulitis of left lower limb; R60.0 Localized edema; M65.072 Abscess of tendon sheath, left ankle and foot | CPT/HCPCS: 11043; A6402 ==

== ENCOUNTER 2017-05-25 11:04 | Outpatient (CLI) | payer MEDICARE, BC | END 2017-05-25 23:59 | disposition home or self-care (01) | LOC: WOU 11:04 | PROVIDERS: ATTEND Podiatrist Foot & Ankle Surgery | DX: E11.621 Type 2 diabetes mellitus with foot ulcer (principal); L97.423 Non-pressure chronic ulcer of left heel and midfoot with necrosis of muscle; E11.42 Type 2 diabetes mellitus with diabetic polyneuropathy; E11.22 Type 2 diabetes mellitus with diabetic chronic kidney disease; N18.6 End stage renal disease; Z99.2 Dependence on renal dialysis; R60.0 Localized edema | CPT/HCPCS: 11043; A6402 ==

== ENCOUNTER 2017-05-30 08:25 | Outpatient (CLI) | payer MEDICARE, BC | END 2017-05-30 23:59 | disposition home or self-care (01) | LOC: WOU 08:25 | PROVIDERS: ATTEND Specialist | DX: E11.621 Type 2 diabetes mellitus with foot ulcer (principal); L97.423 Non-pressure chronic ulcer of left heel and midfoot with necrosis of muscle; E11.42 Type 2 diabetes mellitus with diabetic polyneuropathy; M65.072 Abscess of tendon sheath, left ankle and foot; E11.22 Type 2 diabetes mellitus with diabetic chronic kidney disease; I12.0 Hypertensive chronic kidney disease with stage 5 chronic kidney disease or end stage renal disease; N18.6 End stage renal disease; Z99.2 Dependence on renal dialysis; Z95.0 Presence of cardiac pacemaker; Z87.891 Personal history of nicotine dependence | CPT/HCPCS: A6402; G0463 ==

== ENCOUNTER 2017-06-01 10:15 | Outpatient (CLI) | payer MEDICARE, BC | END 2017-06-01 23:59 | disposition home or self-care (01) | LOC: WOU 10:15 | PROVIDERS: ATTEND Podiatrist Foot & Ankle Surgery | DX: E11.621 Type 2 diabetes mellitus with foot ulcer (principal); E11.22 Type 2 diabetes mellitus with diabetic chronic kidney disease; L97.423 Non-pressure chronic ulcer of left heel and midfoot with necrosis of muscle; N18.6 End stage renal disease; Z99.2 Dependence on renal dialysis; L84 Corns and callosities; B35.1 Tinea unguium; M65.072 Abscess of tendon sheath, left ankle and foot | CPT/HCPCS: 15275; A6402; Q4106 ==

== ENCOUNTER 2017-06-06 10:59 | Outpatient (CLI) | payer MEDICARE, BC | END 2017-06-06 23:59 | disposition home or self-care (01) | LOC: WOU 10:59 | PROVIDERS: ATTEND Podiatrist Foot & Ankle Surgery | DX: E11.621 Type 2 diabetes mellitus with foot ulcer (principal); L97.429 Non-pressure chronic ulcer of left heel and midfoot with unspecified severity; E11.22 Type 2 diabetes mellitus with diabetic chronic kidney disease; N18.6 End stage renal disease; Z99.2 Dependence on renal dialysis; E11.42 Type 2 diabetes mellitus with diabetic polyneuropathy; M65.072 Abscess of tendon sheath, left ankle and foot | CPT/HCPCS: A6402; G0463 ==

== ENCOUNTER 2017-06-08 08:10 | Outpatient (CLI) | payer MEDICARE, BC | END 2017-06-08 23:59 | disposition home or self-care (01) | LOC: WOU 08:10 | PROVIDERS: ATTEND Podiatrist Foot & Ankle Surgery | DX: E11.621 Type 2 diabetes mellitus with foot ulcer (principal); L97.521 Non-pressure chronic ulcer of other part of left foot limited to breakdown of skin; E11.42 Type 2 diabetes mellitus with diabetic polyneuropathy; E11.22 Type 2 diabetes mellitus with diabetic chronic kidney disease; N18.6 End stage renal disease; Z99.2 Dependence on renal dialysis | CPT/HCPCS: 15275; A6402; Q4106 ×2 ==

== ENCOUNTER 2017-06-20 08:20 | Outpatient (CLI) | payer MEDICARE, BC | END 2017-06-20 23:59 | disposition home or self-care (01) | LOC: WOU 08:20 | PROVIDERS: ATTEND Podiatrist Foot & Ankle Surgery | DX: E11.621 Type 2 diabetes mellitus with foot ulcer (principal); E11.42 Type 2 diabetes mellitus with diabetic polyneuropathy; L97.522 Non-pressure chronic ulcer of other part of left foot with fat layer exposed; E11.22 Type 2 diabetes mellitus with diabetic chronic kidney disease; N18.6 End stage renal disease; Z99.2 Dependence on renal dialysis; L84 Corns and callosities; R60.0 Localized edema | CPT/HCPCS: 11042; A6402 ==

== ENCOUNTER 2017-06-25 04:41 | Inpatient (IN) | payer MEDICARE, BC ==
[~2017-06-25] VITALS: Ht 175.3 cm; Wt 97.5 kg
--- NOTE | 2017-06-25 05:17 | NUR ---
Pt VIOLETA JARAMILLO. Pt CAME FROM HIS DIALYSIS CENTER, BUT WAS HAVING TROUBLE WITH HIS LT ARM HD GRAFT ACCESS, POSSIBLY CLOGGED. WAS TOLD BY THE DIALYSIS CENTER TO COME TO THE ER. Pt IS A/OX3, VERBAL, ABLE TO MAKE NEEDS KNOWN. NO S/S OF ACUTE DISTRESS OR SOB NOTED. Pt WAITING IN ER BED 3 WITH CAREGIVER AT BEDSIDE.
--- NOTE | 2017-06-25 05:46 | NUR ---
IV STARTED ON RFA #20G. LABS DRAWN.
[2017-06-25 05:54] LABS: BASOPHILS # (AUTO) 0.1 /CMM (0.0-0.2); BASOPHILS % (AUTO) 1.3 % (0.0-2.0); EOSINOPHILS # (AUTO) 0.5 /CMM (0.0-0.7); EOSINOPHILS % (AUTO) 5.9 % (0.0-6.0); HEMATOCRIT 54 % (39-51); HEMOGLOBIN 17.8 g/dL (13.5-17.5); LYMPHOCYTES # (AUTO) 1.7 /CMM (0.8-4.8); LYMPHOCYTES % (AUTO) 21.3 % (20.0-44.0); MEAN CORPUSCULAR HEMOGLOBIN 31 PG (26.0-33.0); MEAN CORPUSCULAR HGB CONC 33 g/dl (31.0-36.0); MEAN CORPUSCULAR VOLUME 96 fL (80-96); MONOCYTES # (AUTO) 1.1 /CMM (0.1-1.30); MONOCYTES % (AUTO) 13.6 % (2.0-12.0); NEUTROPHILS # (AUTO) 4.5 /CMM (1.8-8.9); NEUTROPHILS % (AUTO) 57.9 % (43.0-81.0); PLATELET COUNT (AUTO) 147 /CMM (150-450); RDW COEFFICIENT OF VARIATION 14.9 (11.5-15.0); RED BLOOD CELL COUNT(AUTO) 5.68 MIL/uL (4.5-6.0); WHITE BLOOD COUNT (AUTO) 7.8 K/uL (4.3-11.0)
[2017-06-25 06:04] LABS: CALCIUM, SERUM 8.3 mg/dL (8.5-10.1)
[2017-06-25 06:06] LABS: CREATININE 15.1 mg/dL (0.6-1.3); POTASSIUM 6.3 mmol/L (3.5-5.1)
[2017-06-25 06:08] LABS: INR 1.06 (0.87-1.13)
[2017-06-25] MEDS ORDERED: SODIUM POLYSTYRENE SULFONATE 15 G/60 ML BOTTLE PO ONE ×2 (06:30→08:30)
--- NOTE | 2017-06-25 06:30 | NUR ---
REPORT CALLED TO 3W RNAIMEE. FOR ACLS PROTOCOL. BEING ADMITTED TO [facility].
--- NOTE | 2017-06-25 07:15 | NUR ---
MS RN OPENING NOTES RECEIVED PT FROM NIGHTSHIFT NURSE IN STABLE CONDITION. 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 NO SOB OR SIGNS OF DISTRESS NOTED. BREATHING IS EVEN AND UNLABORED. IV NOTED ON RIGHT ARM 20G. BED IN LOW LOCKED POSITION, SIDE RAILS UP X2, CALL LIGHT WITHIN REACH. PT'S AT BEDSIDE. WILL BEGIN ADMISSION PROCESS AND AWAIT FURTHER ORDERS FROM THE MD.
[2017-06-25 08:00] VITALS: BP 116/73
[2017-06-25] MEDS ORDERED: HYDR-552 PO (08:37)
[2017-06-25] MEDS ORDERED: CARV25TA2 PO (08:37)
[2017-06-25] MEDS ORDERED: CINA60TA PO (08:37)
[2017-06-25] MEDS ORDERED: PANT40TA4 PO (08:37)
[2017-06-25] MEDS ORDERED: ZOLP5TAB7 PO (08:37)
[2017-06-25 10:20] LABS: EOSINOPHILS % (MANUAL) 3 % (0-4); LYMPHOCYTES % (MANUAL) 19 % (16-48); MONOCYTES % (MANUAL) 14 % (0-11.0); NEUTROPHILS % (MANUAL) 64 (42-76)
[2017-06-25] MEDS ORDERED: BRIMONIDINE TARTRATE OPHT SOLN 5 ML BOTTLE EACHEYE SCH (13:00)
[2017-06-25] MEDS ORDERED: MIDODRINE HCL (5MG) 5 MG TABLET PO SCH (13:00)
[2017-06-25] MEDS ORDERED: ZOLPIDEM TARTRATE 5 MG TABLET PO PRN (13:00)
[2017-06-25 13:28] LABS: CALCIUM, SERUM 9.1 mg/dL (8.5-10.1); CREATININE 16.2 mg/dL (0.6-1.3); POTASSIUM 5.2 mmol/L (3.5-5.1)
--- NOTE | 2017-06-25 13:36 | NUR ---
MS RN NOTES DR YOUNG WAS MADE AWARE OF THE RESULTS OF PT'S ULTRASOUND. DR. PARK IS CURRENTLY WITH THE PATIENT. WILL AWAIT FOR FURTHER ORDERS FROM THE MD
[2017-06-25] MEDS ORDERED: DEXTROSE 50%-WATER 50 ML DISP.SYRIN IV PRN (14:00)
[2017-06-25] MEDS ORDERED: ACETAMINOPHEN 650 MG/20.3 ML UDC NG PRN (14:00)
[2017-06-25] MEDS ORDERED: ONDANSETRON HCL/PF 4 MG/2 ML VIAL IV PRN (14:00)
[2017-06-25] MEDS: CINACALCET HCL 30 MG TABLET PO SCH (14:22)
[2017-06-25] MEDS: PANTOPRAZOLE 40 MG TABLET.DR PO SCH (14:26)
[2017-06-25] MEDS: SEVELAMER CARBONATE 800 MG TABLET PO SCH ×2 (14:26→17:42)
[2017-06-25] MEDS: VIT B CMPLX 3/FA/VIT C/BIOTIN 1 TAB TABLET PO SCH (14:32)
[2017-06-25] MEDS: CHOLECALCIFEROL 1,000 UNIT TABLET (VIT D3) PO SCH (14:33)
[2017-06-25] MEDS: INSULIN LISPRO/ASPART 100 UNIT/ML CARTRIDGE SQ SCH ×2 (14:48→17:56)
[2017-06-25 16:00] VITALS: BP 118/78
[2017-06-25] MEDS ORDERED: MIDODRINE HCL (5MG) 5 MG TABLET PO PRN (16:46)
[2017-06-25] MEDS: DOCUSATE SODIUM 100 MG CAPSULE PO SCH (17:00)
[2017-06-25] MEDS: BRIMONIDINE TARTRATE OPHT SOLN 5 ML BOTTLE EACHEYE SCH (17:43)
[2017-06-25] MEDS: BLOOD SUGAR DIAGNOSTIC 1 EACH STRIP IN SCH ×2 (17:44→21:43)
[2017-06-25] MEDS: INSULIN REGULAR, HUMAN 100 UNIT/ML 3 ML VIAL SQ PRN (17:56)
--- NOTE | 2017-06-25 18:58 | NUR ---
MS RN CLOSING NOTES PT REMAINS IN STABLE CONDITION. ALL DUE MEDS GIVEN AND ORDERS CARRIED OUT ACCORDINGLY. PT MADE AWARE THAT HE WILL BE NPO POST MIDNIGHT FOR POSSIBLE REPAIR OF HIS FISTULA. NO ORDERS FOR CONSENT HAVE BEEN MADE BY DR. YOUNG IN REGARDS TO THE PROCEDURE. HOWEVER, PER DR. PARK "PT SHOULD BE NPO POST MIDNIGHT. SAFETY MEASURES REMAIN IN PLACE. WILL ENDORSE TO NIGHTSHIFT NURSE FOR JONO
[2017-06-25] MEDS ORDERED: ALBUTEROL FS 2.5 MG/0.5 ML VIAL.NEB NEB PRN (19:30)
[2017-06-25 20:00] VITALS: BP 135/89
[2017-06-25] MEDS: CARVEDILOL 12.5 MG TABLET PO SCH (21:23)
[2017-06-25] MEDS: INSULIN DETEMIR 100 UNIT/ML CARTRIDGE SQ SCH (21:41)
[2017-06-25] MEDS: ALPRAZOLAM 1 MG TABLET PO PRN (21:45)
[2017-06-25] MEDS: LATANOPROST EYE DROP 0.005% 2.5 ML BOTTLE EACHEYE SCH (22:05)
[2017-06-25] MEDS: SIMVASTATIN 40 MG TABLET PO SCH (22:09)
[2017-06-26] MEDS: BLOOD SUGAR DIAGNOSTIC 1 EACH STRIP IN SCH ×4 (06:28→21:24)
[2017-06-26] MEDS: PANTOPRAZOLE 40 MG TABLET.DR PO SCH (06:29)
[2017-06-26 06:37] LABS: BASOPHILS # (AUTO) 0.1 /CMM (0.0-0.2); BASOPHILS % (AUTO) 0.8 % (0.0-2.0); EOSINOPHILS # (AUTO) 0.4 /CMM (0.0-0.7); EOSINOPHILS % (AUTO) 5.2 % (0.0-6.0); HEMATOCRIT 52 % (39-51); HEMOGLOBIN 17.5 g/dL (13.5-17.5); LYMPHOCYTES # (AUTO) 1.7 /CMM (0.8-4.8); MEAN CORPUSCULAR HEMOGLOBIN 32 PG (26.0-33.0); MEAN CORPUSCULAR HGB CONC 34 g/dl (31.0-36.0); MEAN CORPUSCULAR VOLUME 95 fL (80-96); MONOCYTES # (AUTO) 0.9 /CMM (0.1-1.30); MONOCYTES % (AUTO) 11.6 % (2.0-12.0); NEUTROPHILS # (AUTO) 4.8 /CMM (1.8-8.9); NEUTROPHILS % (AUTO) 60.4 % (43.0-81.0); PLATELET COUNT (AUTO) 147 /CMM (150-450); RDW COEFFICIENT OF VARIATION 14.7 (11.5-15.0); RED BLOOD CELL COUNT(AUTO) 5.48 MIL/uL (4.5-6.0); WHITE BLOOD COUNT (AUTO) 7.9 K/uL (4.3-11.0)
--- NOTE | 2017-06-26 06:38 | NUR ---
Dr. Gaines called to ask Chemistry Lab results for Potassium this AM. He requested to be called immediately when the result is in to determine procedure to be done.
[2017-06-26 06:51] LABS: MAGNESIUM 2.4 mg/dL (1.8-2.4); POTASSIUM 4.2 mmol/L (3.5-5.1)
[2017-06-26 06:55] LABS: CREATININE 17.5 mg/dL (0.6-1.3)
[2017-06-26 07:00] LABS: PHOSPHORUS 8.4 mg/dL (2.5-4.9)
[2017-06-26] MEDS: SEVELAMER CARBONATE 800 MG TABLET PO SCH ×3 (07:52→16:32)
[2017-06-26 08:00] VITALS: BP 123/74
[2017-06-26] MEDS: INSULIN LISPRO/ASPART 100 UNIT/ML CARTRIDGE SQ SCH ×3 (08:00→16:35)
[2017-06-26] MEDS: CHOLECALCIFEROL 1,000 UNIT TABLET (VIT D3) PO SCH (09:00)
[2017-06-26] MEDS: CINACALCET HCL 30 MG TABLET PO SCH (09:00)
[2017-06-26] MEDS: INSULIN DETEMIR 100 UNIT/ML CARTRIDGE SQ SCH ×2 (09:00→21:00)
[2017-06-26] MEDS: DOCUSATE SODIUM 100 MG CAPSULE PO SCH ×2 (09:00→16:32)
[2017-06-26] MEDS: CARVEDILOL 12.5 MG TABLET PO SCH ×2 (09:00→21:24)
[2017-06-26] MEDS: VIT B CMPLX 3/FA/VIT C/BIOTIN 1 TAB TABLET PO SCH (09:00)
[2017-06-26] MEDS: BRIMONIDINE TARTRATE OPHT SOLN 5 ML BOTTLE EACHEYE SCH ×2 (09:00→16:33)
--- NOTE | 2017-06-26 10:23 | NUR ---
WOUND CARE CONSULT: PT PRESENTS WITH DM ULCER TO LEFT FOOT, PRESENT ON ADMISSION. PT REFUSED FULL SKIN ASSESSMENT AND STATES IS CONTINENT AND AMBULATORY. RECOMMEND DPM FOLLOW UP. PT FOLLOWED BY DR SKINNER. PT HAS SANTYL OINTMENT FROM HOME AND DEMONSTRATES ABILITY TO PERFORM WOUND CARE. WILL SEE PRN. GARZA IN AGREEMENT WITH PLAN OF CARE. Addendum: 06/26/17 at 1025 by JUAN ALBERTO SWARTZ WNDNU Amended: Links added.
[2017-06-26] MEDS ORDERED: SANTYL OINTMENT TP SCH (10:30)
--- NOTE | 2017-06-26 12:13 | NUR ---
MS RN NOTE PER PATIENT WILL HAVE SURGERY TOMORROW IN AM 0700. SPOKE WITH DR. PARK ABOUT TEMPORARY CATHETER FOR DIALYSIS, MD WILL SEE PATIENT AND DISCUSS PLAN AFTERWARDS. CHARGE NURSE INFORMED
[2017-06-26] MEDS: ALPRAZOLAM 1 MG TABLET PO PRN ×2 (13:50→21:30)
[2017-06-26 16:00] VITALS: BP 140/48
[2017-06-26] MEDS ORDERED: SODIUM POLYSTYRENE SULFONATE 15 G/60 ML BOTTLE PO ONE (16:30)
[2017-06-26] MEDS: INSULIN REGULAR, HUMAN 100 UNIT/ML 3 ML VIAL SQ PRN (16:40)
--- NOTE | 2017-06-26 18:45 | NUR ---
MS RN CLOSING NOTE PATIENT IS ALERT AND ORIENTED x4. NO PAIN AT THIS TIME. NO SOB OR DISTRESS NOTED. CALL LIGHT WITHIN REACH AT ALL TIMES. SAFETY MEASURES IMPLEMENTED. ALL DUE MEDICATIONS GIVEN ORDERED. PATIENT WILL BE NPO AFTER MIDNIGHT FOR AV SHUNT PROCEDURE WITH DR. YOUNG AT 0700. CONSENTS ALL OBTAINED. PATIENT REFUSING MEDICATION FOR KAYEXELATE. IV INTACT AND PATENT. ABLE TO COMMUNICATE NEEDS. WILL ENDORSE TO MANAGER VISUAL NURSE FOR JONO
--- NOTE | 2017-06-26 19:25 | NUR ---
MSRN FULLY AWAKE, AT BEDSIDE VERY SUPPORTIVE. AWARE OF PROCEDURE FOR TOMORROW AM, REMINDED NPO POST MIDNIGHT. WANTED TO TAKE ALL HIS DUE MEDS FOR TONIGHT TO BE ADMINISTERED EARLY. NO OTHER NEEDS ATTENDED. NO RESPIRATORY DISTRESS, APPEARS CALM. REMINDED TO CALL STAFF FOR ANY ASSISTANCE/DISCOMFORTS CALL LIGHT WITHIN REACH. CLOSELY WATCHED.
[2017-06-26 20:16] VITALS: BP 104/67
[2017-06-26 20:19] VITALS: BP 104/67
[2017-06-26] MEDS: SIMVASTATIN 40 MG TABLET PO SCH (21:23)
[2017-06-26] MEDS: LATANOPROST EYE DROP 0.005% 2.5 ML BOTTLE EACHEYE SCH (21:25)
[2017-06-27] VITALS (7 sets, daily range): BP systolic 93–115; BP diastolic 60–74
[2017-06-27] MEDS: BLOOD SUGAR DIAGNOSTIC 1 EACH STRIP IN SCH ×4 (05:57→21:35)
[2017-06-27] MEDS ORDERED: ANESTHESIA TRAY IN PYXIS 1 EA TRAY MC ONE (05:58)
--- NOTE | 2017-06-27 06:00 | NUR ---
MSRN BS 115. V/S STABLE. AT BEDSIDE. NPO MAINTAINED.
--- NOTE | 2017-06-27 06:15 | NUR ---
MSRN WENT TO OR VIA BED WITH OR STAFF.
[2017-06-27] MEDS ORDERED: HEPARIN SODIUM, PORCINE 1,000 UNIT/ML VIAL ONE (06:24)
[2017-06-27] MEDS ORDERED: LIDOCAINE 1% INJ 50 ML MDV IJ ONE (06:24)
[2017-06-27] MEDS ORDERED: FENTANYL PF 100MCG/2ML AMPUL ONE (06:40)
[2017-06-27] MEDS ORDERED: MIDAZOLAM HCL 2 MG/2ML VIAL ONE (06:41)
[2017-06-27 07:30] LABS: BASOPHILS # (AUTO) 0.1 /CMM (0.0-0.2); CALCIUM, SERUM 8.8 mg/dL (8.5-10.1); EOSINOPHILS # (AUTO) 0.4 /CMM (0.0-0.7); EOSINOPHILS % (AUTO) 5.6 % (0.0-6.0); HEMATOCRIT 56 % (39-51); HEMOGLOBIN 18.1 g/dL (13.5-17.5); LYMPHOCYTES # (AUTO) 1.8 /CMM (0.8-4.8); LYMPHOCYTES % (AUTO) 22.2 % (20.0-44.0); MAGNESIUM 2.6 mg/dL (1.8-2.4); MEAN CORPUSCULAR HEMOGLOBIN 31 PG (26.0-33.0); MEAN CORPUSCULAR HGB CONC 33 g/dl (31.0-36.0); MEAN CORPUSCULAR VOLUME 96 fL (80-96); MONOCYTES # (AUTO) 0.8 /CMM (0.1-1.30); MONOCYTES % (AUTO) 10.5 % (2.0-12.0); NEUTROPHILS # (AUTO) 4.8 /CMM (1.8-8.9); NEUTROPHILS % (AUTO) 60.7 % (43.0-81.0); PLATELET COUNT (AUTO) 152 /CMM (150-450); POTASSIUM 4.5 mmol/L (3.5-5.1); RDW COEFFICIENT OF VARIATION 14.5 (11.5-15.0)
[2017-06-27] MEDS: SEVELAMER CARBONATE 800 MG TABLET PO SCH ×3 (08:00→17:50)
--- NOTE | 2017-06-27 08:10 | NUR ---
RN NOTES PATIENT IN OR RIGHT NOW. WILL DO ASSESSMENT WHEN PATIENT RETURNS.
[2017-06-27] MEDS ORDERED: BUPIVACAINE 0.5 % PF 150 MG/30 ML VIAL ONE (08:23)
[2017-06-27] MEDS ORDERED: CELLULOSE,OXIDIZED 1 EA PACK MC ONE (08:23)
[2017-06-27 08:40] LABS: PHOSPHORUS 9.2 mg/dL (2.5-4.9)
[2017-06-27] MEDS ORDERED: SODIUM POLYSTYRENE SULFONATE 15 G/60 ML BOTTLE PO SCH (09:00)
[2017-06-27] MEDS: CARVEDILOL 12.5 MG TABLET PO SCH ×2 (09:00→21:00)
--- NOTE | 2017-06-27 10:30 | NUR ---
RN OPENING NOTES PATIENT RETURNED FROM OR S/P LEFT AV SHUNT CLOT CLAUDICATION. AOX4. PATIENT COMPLAINING OF PAIN 6/10 IN THE LEFT ARM. DENIES SOB AND CP. RESPIRATIONS EVEN AND UNLABORED. NO ACUTE DISTRESS NOTED. PATIENT TO HAVE HD. BED LOCKED IN THE LOWEST POSITION WITH SIDERAILS UP X2. CALL LIGHT WITHIN REACH. WILL CONTINUE TO MONITOR, ASSESS AND EDUCATE PATIENT THROUGHOUT SHIFT.
[2017-06-27 10:37] LABS: BAND % (MANUAL) 1 % (0.0-5.0); EOSINOPHILS % (MANUAL) 3 % (0-4); LYMPHOCYTES % (MANUAL) 25 % (16-48); MONOCYTES % (MANUAL) 10 % (0-11.0); NEUTROPHILS % (MANUAL) 61 (42-76)
[2017-06-27] MEDS: INSULIN DETEMIR 100 UNIT/ML CARTRIDGE SQ SCH ×2 (11:05→21:47)
[2017-06-27] MEDS: INSULIN LISPRO/ASPART 100 UNIT/ML CARTRIDGE SQ SCH ×3 (11:06→17:32)
[2017-06-27] MEDS: BRIMONIDINE TARTRATE OPHT SOLN 5 ML BOTTLE EACHEYE SCH ×2 (11:10→18:01)
[2017-06-27] MEDS ORDERED: HEPARIN SODIUM, PORCINE 1000 UNIT/1 ML VIAL IV ONE (12:30)
--- NOTE | 2017-06-27 13:12 | NUR ---
RN NOTES PATIENT RECEIVED DIALYSIS STARTING AT 1115. 3 LITERS REMOVED. PATIENT TOLERATED WELL. BP WNL.
[2017-06-27] MEDS: HYDROCODONE/APAP 5/325MG 1 EACH TABLET PO PRN ×2 (14:42→21:59)
[2017-06-27] MEDS: PANTOPRAZOLE 40 MG TABLET.DR PO SCH (14:49)
[2017-06-27] MEDS: VIT B CMPLX 3/FA/VIT C/BIOTIN 1 TAB TABLET PO SCH (14:49)
[2017-06-27] MEDS: CHOLECALCIFEROL 1,000 UNIT TABLET (VIT D3) PO SCH (14:49)
[2017-06-27] MEDS: CINACALCET HCL 30 MG TABLET PO SCH (14:50)
[2017-06-27] MEDS: DOCUSATE SODIUM 100 MG CAPSULE PO SCH ×2 (14:53→17:32)
[2017-06-27] MEDS: INSULIN REGULAR, HUMAN 100 UNIT/ML 3 ML VIAL SQ PRN ×2 (15:19→17:31)
--- NOTE | 2017-06-27 15:20 | NUR ---
RN NON ADMIN NOTES COREG FROM MORNING HELD. REGULAR INSULIN REFUSED. PATIENT GIVEN INSULIN LISPRO. WILL CONTINUE TO MONITOR.
--- NOTE | 2017-06-27 19:00 | NUR ---
RN NOTES PATIENT CARE CONTINUED INTO NEXT 12 HRS.
--- NOTE | 2017-06-27 21:00 | NUR ---
RN NON ADMIN NOTES COREG HELD. BP LOW.
[2017-06-27] MEDS: LATANOPROST EYE DROP 0.005% 2.5 ML BOTTLE EACHEYE SCH (21:34)
[2017-06-27] MEDS: SIMVASTATIN 40 MG TABLET PO SCH (21:34)
--- NOTE | 2017-06-28 07:20 | NUR ---
RN CLOSING NOTES PATIENT RESTING COMFORTABLE IN BED. AOX4. DENIES PAIN AT THIS TIME. NO SOB OR CP. RESPIRATIONS EVEN AND UNLABORED. BP AND BS CONTROLLED. NO ACUTE DISTRESS. IV ACCESS RFA 20G S/L. HD DONE. 3 LITERS PULLED. ALL NEEDS MET, ALL MEDS GIVEN APPROPRIATE IN PAST 24 HRS. BED LOCKED IN THE LOWEST POSITION. SIDE RAILS UPX2. WILL ENDORSE TO MORNING SHIFT FOR JONO.
--- NOTE | 2017-06-28 07:30 | NUR ---
MS RN RECEIVED ON BED, AWAKE,ALERT,ORIENTED X4,NOT IN ANY FORM OF DISTRESS, RESPIRATIONS EVEN AND UNLABORED,NO SOB NOTED, LUNGS ARE CLEAR,ABDOMEN SOFT,POSITIVE BOWEL SOUNDS, DENIES PAIN AT THIS TIME, HD PATIENT, AT BEDSIDE, WILL CONTINUE TO MONITOR PATIENT.
[2017-06-28] MEDS: BLOOD SUGAR DIAGNOSTIC 1 EACH STRIP IN SCH (07:51)
[2017-06-28 08:00] VITALS: BP 105/68
[2017-06-28 09:00] VITALS: BP 101/69
[2017-06-28] MEDS: CARVEDILOL 12.5 MG TABLET PO SCH (09:00)
--- NOTE | 2017-06-28 09:00 | NUR ---
MS RN BREAKFAST SERVED,DUE MEDS GIVEN,TOLERATED WELL. WAITING TO BE DISCHARGE TODAY.
[2017-06-28] MEDS: CINACALCET HCL 30 MG TABLET PO SCH (09:04)
[2017-06-28] MEDS: SEVELAMER CARBONATE 800 MG TABLET PO SCH (09:04)
[2017-06-28] MEDS: DOCUSATE SODIUM 100 MG CAPSULE PO SCH (09:04)
[2017-06-28] MEDS: VIT B CMPLX 3/FA/VIT C/BIOTIN 1 TAB TABLET PO SCH (09:04)
[2017-06-28] MEDS: PANTOPRAZOLE 40 MG TABLET.DR PO SCH (09:08)
[2017-06-28] MEDS: INSULIN LISPRO/ASPART 100 UNIT/ML CARTRIDGE SQ SCH (09:12)
[2017-06-28] MEDS: INSULIN DETEMIR 100 UNIT/ML CARTRIDGE SQ SCH (09:16)
[2017-06-28] MEDS: BRIMONIDINE TARTRATE OPHT SOLN 5 ML BOTTLE EACHEYE SCH (09:21)
--- NOTE | 2017-06-28 10:00 | NUR ---
MS RN WAS SEEN BY DR. TRANG Mejia/ ORDER TO BE DISCHARGE.
--- NOTE | 2017-06-28 11:30 | NUR ---
MS RN READY TO BE DISCHARGE, INSTRUCTIONS GIVEN, REFUSED TO TAKE PICTURE OF THE WOUND AT LOWER EXTREMITY, WENT HOME ACCOMPANIED BY , ALL NEEDS ATTENDED.
[2017-06-28] MEDS: CHOLECALCIFEROL 1,000 UNIT TABLET (VIT D3) PO SCH (11:32)
== END 2017-06-28 12:00 | disposition home or self-care (01) | DRG 252 ==
LOC: ER 04:43 → TELE 06:12 → MED 08:42
PROVIDERS: ADMIT Internal Medicine Nephrology; ATTEND Internal Medicine Nephrology
PROC: 5A1D70Z Performance of Urinary Filtration, Intermittent, Less than 6 Hours Per Day (ICD-10-PCS; 2017-06-27)
PROC: 05C80ZZ Extirpation of Matter from Left Axillary Vein, Open Approach (ICD-10-PCS; principal; 2017-06-27 07:00)
PROC: 05780ZZ Dilation of Left Axillary Vein, Open Approach (ICD-10-PCS; 2017-06-27 07:00)
DX: T82.868A Thrombosis due to vascular prosthetic devices, implants and grafts, initial encounter (principal); N18.6 End stage renal disease; I13.2 Hypertensive heart and chronic kidney disease with heart failure and with stage 5 chronic kidney disease, or end stage renal disease; E11.22 Type 2 diabetes mellitus with diabetic chronic kidney disease; E11.621 Type 2 diabetes mellitus with foot ulcer; T82.590A Other mechanical complication of surgically created arteriovenous fistula, initial encounter; I50.9 Heart failure, unspecified; T82.898A Other specified complication of vascular prosthetic devices, implants and grafts, initial encounter; Y92.009 Unspecified place in unspecified non-institutional (private) residence as the place of occurrence of the external cause; Y83.2 Surgical operation with anastomosis, bypass or graft as the cause of abnormal reaction of the patient, or of later complication, without mention of misadventure at the time of the procedure; M85.9 Disorder of bone density and structure, unspecified; Z88.8 Allergy status to other drugs, medicaments and biological substances; G90.8 Other disorders of autonomic nervous system; E87.5 Hyperkalemia; L97.529 Non-pressure chronic ulcer of other part of left foot with unspecified severity; Z99.2 Dependence on renal dialysis
CPT/HCPCS: 36415; 71010-TC; 80048-TC; 82962-TC; 83735-TC; 84100-TC; 85025-TC; 85730-TC; 86850-TC; 87081-TC; 90935-TC; 93971-TC; A4606; A6209; A6253; A6402; C1757; C1769; J1644; J1815; J2250; J3010; J3490; Z7610

== ENCOUNTER 2017-07-04 08:20 | Outpatient (CLI) | payer MEDICARE, BC ==
[~2017-07-04 08:20] MED LIST changes: -BRIM5DRO2 OP; -CARV12.52 PO; +CARV25TA2 PO; -CINA30TA PO; +CINA60TA PO; +HYDR-552 PO; -LEVO250T2 PO; -PANT40SU PO; +PANT40TA4 PO; -SILD50TA PO; +SODIUM POLYSTYRENE SULFONATE 15 G/60 ML BOTTLE ONE; -VANC1VIA XX; +ZOLP5TAB7 PO
== END 2017-07-04 23:59 | disposition home or self-care (01) ==
LOC: WOU 08:20
PROVIDERS: ATTEND Podiatrist Foot & Ankle Surgery
DX: E11.621 Type 2 diabetes mellitus with foot ulcer (principal); L97.422 Non-pressure chronic ulcer of left heel and midfoot with fat layer exposed; E11.40 Type 2 diabetes mellitus with diabetic neuropathy, unspecified; E11.22 Type 2 diabetes mellitus with diabetic chronic kidney disease; N18.6 End stage renal disease; Z99.2 Dependence on renal dialysis
CPT/HCPCS: 15275; A6402; Q4106

== ENCOUNTER 2017-07-11 08:20 | Outpatient (CLI) | payer MEDICARE, BC ==
[~2017-07-11 08:20] MED LIST changes: -SODIUM POLYSTYRENE SULFONATE 15 G/60 ML BOTTLE ONE; -ZOLP5TAB7 PO; +ZOLP5TAB8 PO
== END 2017-07-11 23:59 | disposition home or self-care (01) ==
LOC: WOU 08:20
PROVIDERS: ATTEND Podiatrist Foot & Ankle Surgery
DX: E11.621 Type 2 diabetes mellitus with foot ulcer (principal); L97.529 Non-pressure chronic ulcer of other part of left foot with unspecified severity; E11.22 Type 2 diabetes mellitus with diabetic chronic kidney disease; N18.6 End stage renal disease; Z99.2 Dependence on renal dialysis; E11.42 Type 2 diabetes mellitus with diabetic polyneuropathy
CPT/HCPCS: 15275; A6402 ×2; Q4106 ×2

== ENCOUNTER 2017-07-18 08:50 | Outpatient (CLI) | payer MEDICARE, BC | END 2017-07-18 23:59 | disposition home or self-care (01) | LOC: WOU 08:50 | PROVIDERS: ATTEND Podiatrist Foot & Ankle Surgery | DX: E11.621 Type 2 diabetes mellitus with foot ulcer (principal); L97.428 Non-pressure chronic ulcer of left heel and midfoot with other specified severity; E11.42 Type 2 diabetes mellitus with diabetic polyneuropathy; E11.22 Type 2 diabetes mellitus with diabetic chronic kidney disease; N18.6 End stage renal disease; Z99.2 Dependence on renal dialysis | CPT/HCPCS: 11042; 87070; 87077; 87186; A6402 ==

== ENCOUNTER 2017-08-01 08:27 | Outpatient (CLI) | payer MEDICARE, BC | END 2017-08-01 23:59 | disposition home or self-care (01) | LOC: WOU 08:27 | PROVIDERS: ATTEND Podiatrist Foot & Ankle Surgery | DX: E11.621 Type 2 diabetes mellitus with foot ulcer (principal); L97.422 Non-pressure chronic ulcer of left heel and midfoot with fat layer exposed; E11.22 Type 2 diabetes mellitus with diabetic chronic kidney disease; N18.6 End stage renal disease; Z99.2 Dependence on renal dialysis; E11.42 Type 2 diabetes mellitus with diabetic polyneuropathy | CPT/HCPCS: 15275; A6402; Q4106 ==

== ENCOUNTER 2017-08-08 08:45 | Outpatient (CLI) | payer MEDICARE, BC | END 2017-08-08 23:59 | disposition home or self-care (01) | LOC: WOU 08:45 | PROVIDERS: ATTEND Podiatrist Foot & Ankle Surgery | DX: E11.621 Type 2 diabetes mellitus with foot ulcer (principal); L97.522 Non-pressure chronic ulcer of other part of left foot with fat layer exposed; E11.42 Type 2 diabetes mellitus with diabetic polyneuropathy; L84 Corns and callosities; E11.22 Type 2 diabetes mellitus with diabetic chronic kidney disease; N18.6 End stage renal disease | CPT/HCPCS: 11042; A6402 ==

== ENCOUNTER 2017-08-17 08:20 | Outpatient (CLI) | payer MEDICARE, BC | END 2017-08-17 23:59 | disposition home or self-care (01) | LOC: WOU 08:20 | PROVIDERS: ATTEND Podiatrist Foot & Ankle Surgery | DX: E11.621 Type 2 diabetes mellitus with foot ulcer (principal); L97.522 Non-pressure chronic ulcer of other part of left foot with fat layer exposed; E11.42 Type 2 diabetes mellitus with diabetic polyneuropathy; E11.22 Type 2 diabetes mellitus with diabetic chronic kidney disease; N18.6 End stage renal disease; Z99.2 Dependence on renal dialysis | CPT/HCPCS: 15275; A6402; Q4106 ×2 ==

== ENCOUNTER 2017-08-24 08:15 | Outpatient (CLI) | payer MEDICARE, BC | END 2017-08-24 23:59 | disposition home or self-care (01) | LOC: WOU 08:15 | PROVIDERS: ATTEND Podiatrist Foot & Ankle Surgery | DX: E11.621 Type 2 diabetes mellitus with foot ulcer (principal); E11.22 Type 2 diabetes mellitus with diabetic chronic kidney disease; E11.42 Type 2 diabetes mellitus with diabetic polyneuropathy; L97.522 Non-pressure chronic ulcer of other part of left foot with fat layer exposed; N18.6 End stage renal disease; Z99.2 Dependence on renal dialysis | CPT/HCPCS: 15275; A6402; Q4101 ×2 ==

== ENCOUNTER 2017-08-31 08:06 | Outpatient (CLI) | payer MEDICARE, BC | END 2017-08-31 23:59 | disposition home or self-care (01) | LOC: WOU 08:06 | PROVIDERS: ATTEND Podiatrist Foot & Ankle Surgery | DX: T86.821 Skin graft (allograft) (autograft) failure (principal); E11.621 Type 2 diabetes mellitus with foot ulcer; L97.522 Non-pressure chronic ulcer of other part of left foot with fat layer exposed; E11.42 Type 2 diabetes mellitus with diabetic polyneuropathy; E11.22 Type 2 diabetes mellitus with diabetic chronic kidney disease; N18.6 End stage renal disease; Z99.2 Dependence on renal dialysis | CPT/HCPCS: 11042; A6402 ==

== ENCOUNTER 2017-09-19 08:24 | Outpatient (CLI) | payer MEDICARE, BC | END 2017-09-19 23:59 | disposition home or self-care (01) | LOC: WOU 08:24 | PROVIDERS: ATTEND Podiatrist Foot & Ankle Surgery | DX: E11.621 Type 2 diabetes mellitus with foot ulcer (principal); L97.422 Non-pressure chronic ulcer of left heel and midfoot with fat layer exposed; E11.42 Type 2 diabetes mellitus with diabetic polyneuropathy; M65.072 Abscess of tendon sheath, left ankle and foot; Z95.0 Presence of cardiac pacemaker; E11.22 Type 2 diabetes mellitus with diabetic chronic kidney disease; I12.0 Hypertensive chronic kidney disease with stage 5 chronic kidney disease or end stage renal disease; N18.6 End stage renal disease; Z99.2 Dependence on renal dialysis; Z87.891 Personal history of nicotine dependence; B35.1 Tinea unguium | CPT/HCPCS: 11042; A6402 ==

== ENCOUNTER 2017-09-26 08:10 | Outpatient (CLI) | payer MEDICARE, BC | END 2017-09-26 23:59 | disposition home or self-care (01) | LOC: WOU 08:10 | PROVIDERS: ATTEND Podiatrist Foot & Ankle Surgery | DX: E11.621 Type 2 diabetes mellitus with foot ulcer (principal); L97.422 Non-pressure chronic ulcer of left heel and midfoot with fat layer exposed; E11.42 Type 2 diabetes mellitus with diabetic polyneuropathy; B35.1 Tinea unguium; Z83.3 Family history of diabetes mellitus; E11.22 Type 2 diabetes mellitus with diabetic chronic kidney disease; I12.0 Hypertensive chronic kidney disease with stage 5 chronic kidney disease or end stage renal disease; N18.6 End stage renal disease; Z99.2 Dependence on renal dialysis | CPT/HCPCS: 11042; A6402 ==

== ENCOUNTER 2017-09-26 09:05 | Outpatient (CLI) | payer MEDICARE, BC ==
[2017-09-26 09:57] LABS: BASOPHILS # (AUTO) 0.1 /CMM (0.0-0.2); BASOPHILS % (AUTO) 1.2 % (0.0-2.0); EOSINOPHILS # (AUTO) 0.2 /CMM (0.0-0.7); EOSINOPHILS % (AUTO) 3.1 % (0.0-6.0); HEMATOCRIT 59 % (39-51); LYMPHOCYTES # (AUTO) 1.7 /CMM (0.8-4.8); LYMPHOCYTES % (AUTO) 23.6 % (20.0-44.0); MEAN CORPUSCULAR HEMOGLOBIN 32 PG (26.0-33.0); MEAN CORPUSCULAR HGB CONC 34 g/dl (31.0-36.0); MEAN CORPUSCULAR VOLUME 96 fL (80-96); MONOCYTES # (AUTO) 1.2 /CMM (0.1-1.30); MONOCYTES % (AUTO) 15.7 % (2.0-12.0); NEUTROPHILS # (AUTO) 4.2 /CMM (1.8-8.9); NEUTROPHILS % (AUTO) 56.4 % (43.0-81.0); PLATELET COUNT (AUTO) 181 /CMM (150-450); RDW COEFFICIENT OF VARIATION 14.4 (11.5-15.0); RED BLOOD CELL COUNT(AUTO) 6.13 MIL/uL (4.5-6.0); WHITE BLOOD COUNT (AUTO) 7.4 K/uL (4.3-11.0)
[2017-09-26 09:59] LABS: HEMOGLOBIN 19.8 g/dL (13.5-17.5)
[2017-09-26 10:15] LABS: CALCIUM, SERUM 9.3 mg/dL (8.5-10.1); MAGNESIUM 2.7 mg/dL (1.8-2.4); PHOSPHORUS 4.2 mg/dL (2.5-4.9)
[2017-09-26 10:18] LABS: EOSINOPHILS % (MANUAL) 3 % (0-4); LYMPHOCYTES % (MANUAL) 21 % (16-48); MONOCYTES % (MANUAL) 15 % (0-11.0); NEUTROPHILS % (MANUAL) 61 (42-76)
[2017-09-26 10:42] LABS: CREATININE 9.1 mg/dL (0.6-1.3)
== END 2017-09-26 23:59 | disposition home or self-care (01) ==
LOC: LAB 09:05
PROVIDERS: ATTEND Internal Medicine Nephrology
DX: N18.6 End stage renal disease (principal); R30.0 Dysuria
CPT/HCPCS: 36415; 80048-TC; 83735-TC; 84100-TC; 85025-TC

== ENCOUNTER 2017-09-28 08:19 | Outpatient (CLI) | payer MEDICARE, BC | END 2017-09-28 23:59 | disposition home or self-care (01) | LOC: US 08:19 | PROVIDERS: ATTEND Internal Medicine Nephrology | DX: R39.198 Other difficulties with micturition (principal); Z99.2 Dependence on renal dialysis | CPT/HCPCS: 76856-TC ==

== ENCOUNTER 2017-10-03 08:12 | Outpatient (CLI) | payer MEDICARE, BC | END 2017-10-03 23:59 | disposition home or self-care (01) | LOC: WOU 08:12 | PROVIDERS: ATTEND Podiatrist Foot & Ankle Surgery | DX: E11.621 Type 2 diabetes mellitus with foot ulcer (principal); L97.422 Non-pressure chronic ulcer of left heel and midfoot with fat layer exposed; E11.42 Type 2 diabetes mellitus with diabetic polyneuropathy; E11.22 Type 2 diabetes mellitus with diabetic chronic kidney disease; N18.6 End stage renal disease; Z99.2 Dependence on renal dialysis | CPT/HCPCS: 11042; A6402 ==

== ENCOUNTER 2017-10-10 08:15 | Outpatient (CLI) | payer MEDICARE, BC | END 2017-10-10 23:59 | disposition home or self-care (01) | LOC: WOU 08:15 | PROVIDERS: ATTEND Podiatrist Foot & Ankle Surgery | DX: E11.621 Type 2 diabetes mellitus with foot ulcer (principal); L97.422 Non-pressure chronic ulcer of left heel and midfoot with fat layer exposed; E11.22 Type 2 diabetes mellitus with diabetic chronic kidney disease; N18.6 End stage renal disease; Z99.2 Dependence on renal dialysis; L84 Corns and callosities; L90.9 Atrophic disorder of skin, unspecified; E11.40 Type 2 diabetes mellitus with diabetic neuropathy, unspecified | CPT/HCPCS: 11042; A6402 ==

== ENCOUNTER 2017-10-17 08:14 | Outpatient (CLI) | payer MEDICARE, BC | END 2017-10-17 23:59 | disposition home or self-care (01) | LOC: WOU 08:14 | PROVIDERS: ATTEND Podiatrist Foot & Ankle Surgery | DX: E11.621 Type 2 diabetes mellitus with foot ulcer (principal); L97.522 Non-pressure chronic ulcer of other part of left foot with fat layer exposed; E11.22 Type 2 diabetes mellitus with diabetic chronic kidney disease; N18.6 End stage renal disease; Z99.2 Dependence on renal dialysis | CPT/HCPCS: 11042; A6402 ==

== ENCOUNTER 2017-10-31 08:15 | Outpatient (CLI) | payer MEDICARE, BC | END 2017-10-31 23:59 | LOC: WOU 08:15 | PROVIDERS: ATTEND Podiatrist Foot & Ankle Surgery | DX: E11.621 Type 2 diabetes mellitus with foot ulcer (principal); L97.422 Non-pressure chronic ulcer of left heel and midfoot with fat layer exposed; E11.42 Type 2 diabetes mellitus with diabetic polyneuropathy; E11.22 Type 2 diabetes mellitus with diabetic chronic kidney disease; N18.6 End stage renal disease; Z99.2 Dependence on renal dialysis; L90.9 Atrophic disorder of skin, unspecified | CPT/HCPCS: 11042; A6402 ==

== ENCOUNTER 2017-11-14 08:18 | Outpatient (CLI) | payer MEDICARE, BC ==
[~2017-11-14 08:18] MED LIST changes: +FLUORESCEIN SODIUM OPHTH 1 EA STRIP ONE; +TETRACAINE HCL/PF 0.5% UD 2 ML BOTTLE ONE
== END 2017-11-14 23:59 | disposition home or self-care (01) ==
LOC: WOU 08:18
PROVIDERS: ATTEND Podiatrist Foot & Ankle Surgery
DX: E11.621 Type 2 diabetes mellitus with foot ulcer (principal); L97.422 Non-pressure chronic ulcer of left heel and midfoot with fat layer exposed; E11.22 Type 2 diabetes mellitus with diabetic chronic kidney disease; N18.6 End stage renal disease; Z99.2 Dependence on renal dialysis; L84 Corns and callosities; B35.1 Tinea unguium
CPT/HCPCS: 11042; A6402

== ENCOUNTER 2017-11-21 08:23 | Outpatient (CLI) | payer MEDICARE, BC ==
[~2017-11-21 08:23] MED LIST changes: -FLUORESCEIN SODIUM OPHTH 1 EA STRIP ONE; -TETRACAINE HCL/PF 0.5% UD 2 ML BOTTLE ONE
== END 2017-11-21 23:59 | disposition home or self-care (01) ==
LOC: WOU 08:23
PROVIDERS: ATTEND Podiatrist Foot & Ankle Surgery
DX: E11.621 Type 2 diabetes mellitus with foot ulcer (principal); L97.422 Non-pressure chronic ulcer of left heel and midfoot with fat layer exposed; L97.522 Non-pressure chronic ulcer of other part of left foot with fat layer exposed; E11.22 Type 2 diabetes mellitus with diabetic chronic kidney disease; N18.6 End stage renal disease; Z99.2 Dependence on renal dialysis; L84 Corns and callosities; E11.42 Type 2 diabetes mellitus with diabetic polyneuropathy
CPT/HCPCS: 11042; A6402

== ENCOUNTER → 2017-11-28 | Outpatient (CLI) | payer MEDICARE, BC | END | disposition home or self-care (01) | LOC: WOU 08:13 | PROVIDERS: ATTEND Podiatrist Foot & Ankle Surgery | DX: E11.621 Type 2 diabetes mellitus with foot ulcer (principal); L97.422 Non-pressure chronic ulcer of left heel and midfoot with fat layer exposed; L97.522 Non-pressure chronic ulcer of other part of left foot with fat layer exposed; E11.21 Type 2 diabetes mellitus with diabetic nephropathy; E11.40 Type 2 diabetes mellitus with diabetic neuropathy, unspecified; E11.22 Type 2 diabetes mellitus with diabetic chronic kidney disease; N18.6 End stage renal disease; Z99.2 Dependence on renal dialysis; L03.116 Cellulitis of left lower limb; B96.89 Other specified bacterial agents as the cause of diseases classified elsewhere; Z79.899 Other long term (current) drug therapy | CPT/HCPCS: 11042; 87070; 87075; 87077; 87186; A6402 ==

== ENCOUNTER 2017-12-12 08:30 | Outpatient (CLI) | payer MEDICARE, BC | END 2017-12-12 23:59 | disposition home or self-care (01) | LOC: WOU 08:30 | PROVIDERS: ATTEND Podiatrist Foot & Ankle Surgery | DX: E11.621 Type 2 diabetes mellitus with foot ulcer (principal); L97.522 Non-pressure chronic ulcer of other part of left foot with fat layer exposed; L97.422 Non-pressure chronic ulcer of left heel and midfoot with fat layer exposed; E11.22 Type 2 diabetes mellitus with diabetic chronic kidney disease; N18.6 End stage renal disease; Z99.2 Dependence on renal dialysis; E11.40 Type 2 diabetes mellitus with diabetic neuropathy, unspecified; M86.8X7 Other osteomyelitis, ankle and foot; B95.7 Other staphylococcus as the cause of diseases classified elsewhere; E11.69 Type 2 diabetes mellitus with other specified complication | CPT/HCPCS: 11042; A6402 ==

== ENCOUNTER 2018-01-02 13:00 | Outpatient (CLI) | payer MEDICARE, BC | END 2018-01-02 23:59 | disposition home or self-care (01) | LOC: WOU 13:00 | PROVIDERS: ATTEND Podiatrist Foot & Ankle Surgery | DX: Z09 Encounter for follow-up examination after completed treatment for conditions other than malignant neoplasm (principal); L84 Corns and callosities; E11.22 Type 2 diabetes mellitus with diabetic chronic kidney disease; N18.6 End stage renal disease; Z99.2 Dependence on renal dialysis; L90.9 Atrophic disorder of skin, unspecified; Z86.31 Personal history of diabetic foot ulcer; Z95.810 Presence of automatic (implantable) cardiac defibrillator | CPT/HCPCS: A6402; G0463 ==

== ENCOUNTER 2018-01-30 13:30 | Outpatient (CLI) | payer MEDICARE, BC | END 2018-01-30 23:59 | disposition home or self-care (01) | LOC: WOU 13:30 | PROVIDERS: ATTEND Podiatrist Foot & Ankle Surgery | DX: E11.621 Type 2 diabetes mellitus with foot ulcer (principal); L97.428 Non-pressure chronic ulcer of left heel and midfoot with other specified severity; E11.42 Type 2 diabetes mellitus with diabetic polyneuropathy; B35.1 Tinea unguium; E11.22 Type 2 diabetes mellitus with diabetic chronic kidney disease; N18.6 End stage renal disease; Z99.2 Dependence on renal dialysis; L84 Corns and callosities | CPT/HCPCS: 11042; A6402; Z7610 ==

== ENCOUNTER 2019-01-17 14:28 | Inpatient (IN) | payer MEDICARE, BC ==
[~2019-01-17] VITALS: Ht 170.2 cm; Wt 99.8 kg
[~2019-01-17 14:28] MED LIST changes: +HYDR-4384 PO; -HYDR-552 PO
--- NOTE | 2019-01-17 14:39 | NUR ---
CAME IN LUE A/V SHUNT MALFUNCTION "MY DIALYSIS CATHETER COAGULATED, THER'ES NO FLOW". TO ER BED 8, HOOKED TO MONITOR, CHANGED TO GOWN, PROVIDED W WARM BLANKET, AWAITING MD BONNER
--- NOTE | 2019-01-17 14:41 | NUR ---
DR PERKINS AT BEDSIDE
[2019-01-17 15:03] LABS: BASOPHILS # (AUTO) 0.1 /CMM (0.0-0.2); BASOPHILS % (AUTO) 0.8 % (0.0-2.0); EOSINOPHILS % (AUTO) 4.3 % (0.0-6.0); HEMATOCRIT 51 % (39-51); HEMOGLOBIN 16.7 g/dL (13.5-17.5); LYMPHOCYTES # (AUTO) 1.3 /CMM (0.8-4.8); LYMPHOCYTES % (AUTO) 16.2 % (20.0-44.0); MEAN CORPUSCULAR HGB CONC 33 g/dl (31.0-36.0); MEAN CORPUSCULAR VOLUME 89 fL (80-96); MONOCYTES # (AUTO) 1.1 /CMM (0.1-1.30); MONOCYTES % (AUTO) 13.5 % (2.0-12.0); NEUTROPHILS # (AUTO) 5.2 /CMM (1.8-8.9); NEUTROPHILS % (AUTO) 65.2 % (43.0-81.0); PLATELET COUNT (AUTO) 199 /CMM (150-450); RED BLOOD CELL COUNT(AUTO) 5.73 MIL/uL (4.5-6.0); WHITE BLOOD COUNT (AUTO) 7.9 K/uL (4.3-11.0)
[2019-01-17 15:04] LABS: CALCIUM, SERUM 8.4 mg/dL (8.5-10.1); POTASSIUM 5.5 mmol/L (3.5-5.1)
[2019-01-17 15:06] LABS: CREATININE 11.8 mg/dL (0.6-1.3)
[2019-01-17] MEDS ORDERED: INSU100V7 SQ (15:09)
[2019-01-17] MEDS ORDERED: TIMO5DRO18 EACHEYE (15:09)
[2019-01-17] MEDS ORDERED: BRIM5DRO3 EACHEYE (15:09)
--- NOTE | 2019-01-17 17:44 | NUR ---
REPORT GIVEN TO MUSA OF MED-SURG UNIT
[2019-01-17] MEDS ORDERED: MAGNESIUM HYDROXIDE 30 ML UDC PO PRN (18:00)
[2019-01-17] MEDS ORDERED: MAG HYDROX/AL HYDROX/SIMETH 30 ML UDC PO PRN (18:00)
[2019-01-17] MEDS ORDERED: ONDANSETRON HCL/PF 4 MG/2 ML VIAL IVP PRN (18:00)
[2019-01-17] MEDS ORDERED: ZOLPIDEM TARTRATE 5 MG TABLET PO PRN (18:00)
[2019-01-17] MEDS ORDERED: HYDROCODONE/APAP 5/325MG 1 EACH TABLET PO PRN (18:00)
[2019-01-17] MEDS ORDERED: Z GUARD REMEDY 2 OZ OINT TP PRN (18:00)
[2019-01-17] MEDS ORDERED: ACETAMINOPHEN 325 MG TABLET PO PRN (18:00)
[2019-01-17] MEDS ORDERED: DEXTROSE 50%-WATER 50 ML DISP.SYRIN IV PRN (18:30)
[2019-01-17] MEDS: BLOOD SUGAR DIAGNOSTIC 1 EACH STRIP IN SCH ×2 (18:30→21:42)
[2019-01-17] MEDS ORDERED: ALPRAZOLAM 1 MG TABLET PO PRN (18:30)
--- NOTE | 2019-01-17 18:39 | NUR ---
MS/RN RECEIVED PATIENT FROM DANIELA IN STABLE CONDITION.
--- NOTE | 2019-01-17 18:39 | NUR ---
MS/RN RECEIVED CALL FROM DR YOUNG WITH ORDERS FOR NPO MIDNIGHT, CONSENT FOR HD CATH PLACEMENT. BMP IN AM, KAYEXALATE 30GM X 1 NOW FOR HIGH POTASSIUM. NOTED AND CARRIED OUT. RESIDENT AND RP AWARE.
[2019-01-17] MEDS ORDERED: SODIUM POLYSTYRENE SULF. PWD 15 GM UDC PO ONE (19:00)
[2019-01-17] MEDS ORDERED: ALBUTEROL FS 2.5 MG/0.5 ML VIAL.NEB NEB PRN (19:30)
--- NOTE | 2019-01-17 19:30 | NUR ---
MS RN NOTE: PATIENT SITTING IN CHAIR, NO ACUTE DISTRESS NOTED, FAMILY MEMBER AT BEDSIDE. BREATHING EVEN AND UNLABORED, NO SOB NOTED. IV TO RFA IN PLACE. CALL LIGHT IN REACH. WILL CONTINUE TO MONITOR.
[2019-01-17] MEDS: BRIMONIDINE TARTRATE OPHT SOLN 5 ML BOTTLE EACHEYE SCH (19:45)
[2019-01-17] MEDS: TIMOLOL 0.5% SOLN OPHTH 5 ML BOTTLE EACHEYE SCH (19:45)
[2019-01-17 20:00] VITALS: BP 95/68
[2019-01-17] MEDS: SIMVASTATIN 40 MG TABLET PO SCH (21:42)
[2019-01-17] MEDS: INSULIN REGULAR, HUMAN 100 UNIT/ML 3 ML VIAL SQ PRN (21:52)
[2019-01-17] MEDS: INSULIN GLARGINE, 100 UNIT/ML CARTRIDGE SQ SCH (21:53)
--- NOTE | 2019-01-17 23:00 | NUR ---
TELEPHONE INFORMATION SUPERVISOR NOTE: PATIENT ANXIOUS AND REQUESTING FOR XANAX. PATIENT ORDER FOR XANAX 2MG ORAL, PATIENT REQUESTING FOR ONLY 1MG, EXPLAINED THAT ORDER IS 2MG, BUT PATIENT DOES NOT WANT TO BE SEDATED SINCE HE TOOK KAYEXALATE WAS TAKEN EARLIER. ONLY XANAX 1MG ORAL GIVEN. WILL CONTINUE TO MONITOR.
[2019-01-18] VITALS: BP 108/73
--- NOTE | 2019-01-18 00:15 | NUR ---
CONCRETE PAVEMENT INSTALLER NOTE: PATIENT NPO FOR HD PLACEMENT IN MORNING. INSTRUCTED PATIENT NOT TO EAT OR DRINK. CONSENT SIGNED AND FILLED IN CHART. WILL CONTINUE TO MONITOR.
[2019-01-18] MEDS: BRIMONIDINE TARTRATE OPHT SOLN 5 ML BOTTLE EACHEYE SCH ×3 (03:16→16:12)
[2019-01-18 04:00] VITALS: BP 130/90
[2019-01-18] MEDS ORDERED: MIDODRINE HCL (5MG) 5 MG TABLET PO PRN (04:30)
--- NOTE | 2019-01-18 06:30 | NUR ---
MS RN NOTE: PATIENT RESTING IN BED, NO ACUTE DISTRESS NOTED. BREATHING EVEN AND UNLABORED, NO SOB NOTED. IV TO RFA IN PLACE. LUE WITH AV SHUNT IN PLACE. BED LOCKED AND IN LOWEST POSITION, CALL LIGHT IN REACH. WILL ENDORSE TO DAY NURSE TO CONTINUE WITH PLAN OF CARE.
[2019-01-18 06:34] LABS: BASOPHILS # (AUTO) 0.1 /CMM (0.0-0.2); BASOPHILS % (AUTO) 1.3 % (0.0-2.0); EOSINOPHILS % (AUTO) 5.4 % (0.0-6.0); HEMATOCRIT 48 % (39-51); HEMOGLOBIN 15.7 g/dL (13.5-17.5); LYMPHOCYTES # (AUTO) 1.2 /CMM (0.8-4.8); LYMPHOCYTES % (AUTO) 16.4 % (20.0-44.0); MEAN CORPUSCULAR HGB CONC 33 g/dl (31.0-36.0); MEAN CORPUSCULAR VOLUME 90 fL (80-96); MONOCYTES % (AUTO) 13.9 % (2.0-12.0); NEUTROPHILS # (AUTO) 4.6 /CMM (1.8-8.9); PLATELET COUNT (AUTO) 184 /CMM (150-450); RED BLOOD CELL COUNT(AUTO) 5.38 MIL/uL (4.5-6.0); WHITE BLOOD COUNT (AUTO) 7.3 K/uL (4.3-11.0)
[2019-01-18] MEDS: BLOOD SUGAR DIAGNOSTIC 1 EACH STRIP IN SCH ×3 (06:44→16:37)
[2019-01-18] MEDS: INSULIN GLARGINE, 100 UNIT/ML CARTRIDGE SQ SCH ×2 (06:44→16:35)
[2019-01-18 06:51] LABS: CALCIUM, SERUM 8.4 mg/dL (8.5-10.1); MAGNESIUM 3.1 mg/dL (1.8-2.4); PHOSPHORUS 4.3 mg/dL (2.5-4.9); POTASSIUM 4.5 mmol/L (3.5-5.1)
[2019-01-18 06:53] LABS: CREATININE 13.9 mg/dL (0.6-1.3)
[2019-01-18] MEDS ORDERED: PANTOPRAZOLE 40 MG TABLET.DR PO SCH ×2 (07:30)
--- NOTE | 2019-01-18 07:32 | NUR ---
TELE/RN OPENING NOTE PATIENT IN BED IN STABLE CONDITION. A/O X 4. NO SIGNS OF ACUTE DISTRESS. NO COMPLAIN OF PAIN OR DISCOMFORT. ON TELE MONITOR NOTED WITH SR WITH RATE OF 70'S. NPO STATUS AT THIS TIME SECONDARY TO SCHEDULE FOR HD CATHETER REPLACEMENT. ALL NEEDS ATTENDED TO. CALL LIGHT WITHIN REACH. WILL CONTINUE TO MONITOR TO ENSURE SAFETY.
[2019-01-18 08:00] VITALS: BP 116/79
[2019-01-18] MEDS: TIMOLOL 0.5% SOLN OPHTH 5 ML BOTTLE EACHEYE SCH ×2 (08:05→16:12)
[2019-01-18] MEDS: SEVELAMER CARBONATE 800 MG TABLET PO SCH ×3 (08:51→17:32)
[2019-01-18] MEDS ORDERED: CINACALCET HCL 30 MG TABLET PO SCH (09:00)
[2019-01-18] MEDS ORDERED: DOCUSATE SODIUM 100 MG CAPSULE PO SCH (09:00)
[2019-01-18] MEDS ORDERED: ANESTHESIA TRAY IN PYXIS 1 EA TRAY MC ONE (10:10)
[2019-01-18] MEDS ORDERED: LIDOCAINE HCL/PF 1% 30 ML SDV ONE (10:10)
[2019-01-18] MEDS ORDERED: HEPARIN SODIUM, PORCINE 1,000 UNIT/ML VIAL ONE (10:10)
--- NOTE | 2019-01-18 10:20 | NUR ---
MS/RN PATIENT LEFT TO O.R. IN STABLE CONDITION ACCOMPANIED BY 2 O.R. RN FOR HEMODIALYSIS CATH PLACEMENT PROCEDURE BY DR YOUNG
[2019-01-18] MEDS ORDERED: MIDAZOLAM HCL 2 MG/2ML VIAL ONE (10:30)
[2019-01-18] MEDS ORDERED: FENTANYL PF 100MCG/2ML AMPUL ONE (10:30)
--- NOTE | 2019-01-18 12:06 | NUR ---
MS/RN PATIENT RETURN FROM O.R. IN STABLE CONDITION. S/P RIGHT CHEST HD CATH PLACEMENT. PER DR YOUNG ORDERS RESUME ALL PRE OP ORDERS, LINE OK TO START HD. ORDERS NOTED AND CARRIED OUT. SPOKE WITH ZORA HD NURSE PER ZORA HD WILL HAPPEN IN 4 TO MOST 5 HRS. PATIENT AWARE.
--- NOTE | 2019-01-18 13:15 | NUR ---
MS/RN S/P LEFT FOOT WOUND DEBRIDEMENT DONE BY DR JEVON DA SILVA, TOLERATING WELL. PER JEVON DA SILVA ORDERS TO GIVE VANCO 1GM DOSE POST HD AND OKAY TO DC HOME. PATIENT AND ABBI AT BEDSIDE AWARE.
[2019-01-18] MEDS ORDERED: DOXY100T2 PO (14:05)
[2019-01-18] MEDS ORDERED: VANCOMYCIN 1 GM in IV D5W 250 ML IV PRN (16:00)
[2019-01-18] MEDS: INSULIN REGULAR, HUMAN 100 UNIT/ML 3 ML VIAL SQ PRN (16:36)
--- NOTE | 2019-01-18 17:44 | NUR ---
MS/RN PER HD NURSE GIORGIO THE ARTERIAL PORT FOR HD CATHETER IS NOT WORKING, THEREFORE SHE SWITCH THE PORTS. CALLED DR YOUNG AND MADE HIM AWARE AT THIS TIME PER DR YOUNG OKAY TO CONTINUE HD WITH PORTS SWITCHED BUT AFTER HD AND PRIOR TO PATIENT DC HOME TODAY PLEASE PUT TPA 2MG CATH FLOW TO ARTERIAL PORT IV X 1. ORDERS NOTED AND CARRIED OUT. PATIENT AND ABBI AT BEDSIDE AWARE.
[2019-01-18] MEDS ORDERED: ALTEPLASE CATHFLO 2 MG/VIAL IV ONE (18:00)
--- NOTE | 2019-01-18 18:22 | NUR ---
MS/RN CLOSING NOTE PATIENT IN BED IN STABLE CONDITION. A/O X 4. NO SIGNS OF ACUTE DISTRESS. NO COMPLAIN OF PAIN OR DISCOMFORT. ON GOING DIALYSIS AT THIS TIME. TOLERATING WELL. WILL ENDORSE TO NEXT SHIFT RN TO ADMINISTER VANCO 1GM POST HD PRIOR TO DC PATIENT HOME, ALSO PER JEVON PHARM JUST IN CASE PATIENT NOT DC HOME TONIGHT TO GIVE VANCO 1GM DOSE POST HD X 1 AND THEN DC THE VANCO ORDER. ALSO, WILL ENDORSE TO NEXT SHIFT RN ALSO TO PROVIDE TPA CATH FLOW TO HD NURSE TO ADMINISTER POST HD. ALL NEEDS ATTENDED TO AT THIS TIME. CALL LIGHT WITHIN REACH. WILL ENDORSE TO NEXT SHIFT FOR CONTINUITY OF CARE.
--- NOTE | 2019-01-18 18:54 | NUR ---
MS/RN RECEIVED ALTEPLASE FROM [facility] AND ENDORSED TO RENETTA RM FOR PM SHIFT.
--- NOTE | 2019-01-18 19:41 | NUR ---
MS RN NOTES RECEIVED A/O X4,HEMODIALYSIS IN PROGRESS,ALTEPLASE SCANNED AND HANDED TO HD NURSE FOR HD CATH FLUSHING.SALINE LOCK LEFT FORE ARM INTACT AND PATENT. AT BEDSIDE.CALL LIGHT IN REACH NEEDS ANTICIPATED.
[2019-01-18 20:00] VITALS: BP 106/55
--- NOTE | 2019-01-18 20:00 | NUR ---
MS RN NOTES HEMODIALYSIS COMPLETED,TOLERATED WELL.TAKEN OUT 3.5LITERS.VITAL SIGNS WITH IN NORMAL LIMITS
--- NOTE | 2019-01-18 20:08 | NUR ---
MS RN NOTES DUE VANCOMYCIN 1GM IV ,HUNG INFUSING THIS TIME VIA IV PUMP AT 250ML/HR RATE. WILL DISCHARGE HOME WITH POST IV INFUSION OF ABX.
[2019-01-18] MEDS: SIMVASTATIN 40 MG TABLET PO SCH (21:18)
--- NOTE | 2019-01-18 21:45 | NUR ---
MS RN NOTES VANCOMYCIN IV ADMINISTERED,NO SIDE EFFECTS NOTED.DUE PO ZOCOR 40MG PO GIVEN WELL.DISCHARGED HOME ACCOMPANIED BY ABBI IN STABLE CONDITION.
== END 2019-01-18 21:45 | disposition home or self-care (01) | DRG 314 ==
LOC: ER 14:29 → MEDSG1 17:39 → MED 18:21 → TELE 20:37 → MED 01-18 08:45
PROVIDERS: ADMIT Nurse Practitioner Acute Care; ATTEND Nurse Practitioner Acute Care
PROC: 0JH63XZ Insertion of Tunneled Vascular Access Device into Chest Subcutaneous Tissue and Fascia, Percutaneous Approach (ICD-10-PCS; principal; 2019-01-18)
PROC: 02HV33Z Insertion of Infusion Device into Superior Vena Cava, Percutaneous Approach (ICD-10-PCS; 2019-01-18)
PROC: B518ZZA Fluoroscopy of Superior Vena Cava, Guidance (ICD-10-PCS; 2019-01-18)
PROC: 5A1D70Z Performance of Urinary Filtration, Intermittent, Less than 6 Hours Per Day (ICD-10-PCS; 2019-01-18)
DX: T82.590A Other mechanical complication of surgically created arteriovenous fistula, initial encounter (principal); N18.6 End stage renal disease; E87.1 Hypo-osmolality and hyponatremia; I13.2 Hypertensive heart and chronic kidney disease with heart failure and with stage 5 chronic kidney disease, or end stage renal disease; Y69 Unspecified misadventure during surgical and medical care; Y92.89 Other specified places as the place of occurrence of the external cause; Z99.2 Dependence on renal dialysis; Z95.810 Presence of automatic (implantable) cardiac defibrillator; E11.22 Type 2 diabetes mellitus with diabetic chronic kidney disease; E11.621 Type 2 diabetes mellitus with foot ulcer; L97.529 Non-pressure chronic ulcer of other part of left foot with unspecified severity; I25.10 Atherosclerotic heart disease of native coronary artery without angina pectoris; I25.2 Old myocardial infarction; E78.5 Hyperlipidemia, unspecified; E87.5 Hyperkalemia; I50.9 Heart failure, unspecified; M89.8X9 Other specified disorders of bone, unspecified site
CPT/HCPCS: 36415; 71045-TC; 80048-TC; 80061-TC; 82962-TC; 83735-TC; 84100-TC; 85025-TC; 85730-TC; 86706; 87081-TC; 87340; 90935-TC; A6402; C1750; C1769; G0378; J0690; J1644; J1815; J2250; J2704; J2997; J3010; J3370; J3490; J7060

== ENCOUNTER 2019-01-22 13:54 | Inpatient (IN) | payer MEDICARE, BC ==
[~2019-01-22] VITALS: Ht 175.3 cm; Wt 102.1 kg
[~2019-01-22 13:54] MED LIST changes: -CALC-838 PO; -CARV25TA2 PO; +DOXY100T2 PO; -HYDR-4384 PO; -INSU100V10 SQ; +INSU100V7 SQ; -LATA2.5D2 EACHEYE; +TIMO5DRO18 EACHEYE; -VIT1TABL46 PO; -ZOLP5TAB8 PO
--- NOTE | 2019-01-22 14:05 | NUR ---
CAME IN FOR DIALYSIS CATH MALFUNCTION. ALSO C/O DIZZINESS. TO ER BED 10, HOOKED TO MONITOR, CHANGED TO GOWN, PROVIDED W WARM BLANKET, AWAITING MD BONNER
[2019-01-22 14:31] LABS: BASOPHILS # (AUTO) 0.1 /CMM (0.0-0.2); BASOPHILS % (AUTO) 0.9 % (0.0-2.0); EOSINOPHILS % (AUTO) 3.5 % (0.0-6.0); HEMATOCRIT 51 % (39-51); HEMOGLOBIN 16.8 g/dL (13.5-17.5); LYMPHOCYTES # (AUTO) 1.3 /CMM (0.8-4.8); LYMPHOCYTES % (AUTO) 15.2 % (20.0-44.0); MEAN CORPUSCULAR HGB CONC 33 g/dl (31.0-36.0); MEAN CORPUSCULAR VOLUME 91 fL (80-96); MONOCYTES # (AUTO) 1.5 /CMM (0.1-1.30); MONOCYTES % (AUTO) 18.1 % (2.0-12.0); NEUTROPHILS # (AUTO) 5.3 /CMM (1.8-8.9); NEUTROPHILS % (AUTO) 62.3 % (43.0-81.0); PLATELET COUNT (AUTO) 151 /CMM (150-450); RED BLOOD CELL COUNT(AUTO) 5.61 MIL/uL (4.5-6.0); WHITE BLOOD COUNT (AUTO) 8.6 K/uL (4.3-11.0)
--- NOTE | 2019-01-22 14:37 | NUR ---
BALLPOINT PENS ASSEMBLER AT BEDSIDE.
[2019-01-22 14:41] LABS: CALCIUM, SERUM 8.1 mg/dL (8.5-10.1); POTASSIUM 5.4 mmol/L (3.5-5.1)
[2019-01-22 14:42] LABS: CREATININE 10.3 mg/dL (0.6-1.3)
--- NOTE | 2019-01-22 14:51 | NUR ---
CALLED [facility] RIDING DOUBLE WAS PAGED.
[2019-01-22] MEDS ORDERED: DEXT15DR6 EACHEYE (15:07)
[2019-01-22 15:35] LABS: BAND % (MANUAL) 1 % (0.0-5.0); EOSINOPHILS % (MANUAL) 5 % (0-4); LYMPHOCYTES % (MANUAL) 15 % (16-48); MONOCYTES % (MANUAL) 15 % (0-11.0); NEUTROPHILS % (MANUAL) 64 (42-76)
--- NOTE | 2019-01-22 16:25 | NUR ---
BP=75/51, DR HARGROVE AWARE, ORDERED 500ML NS, PT REFUSED. DR HARGROVE EXPLAINED RISKS OF LOW BLOOD PRESSURE, PT STATED HE UNDERSTOOD THE RISKS.
[2019-01-22] MEDS ORDERED: IV NS 0.9% 500 ML BAG IV ONE (16:30)
--- NOTE | 2019-01-22 16:49 | NUR ---
DR HARGROVE EXPLAINED TO PATIENT THE RISKS OF NOT BEING PLACED IN DANIELA, EXPLAINED THAT VITAL SIGNS ESPECIALLY BLOOD PRESSURE WILL NOT BE MONITORED MUCH WHEN PT IS PLACED IN MED-SURG AND WON'T BE ABLE TO CATCH IT JUST IN CASE BLOOD PRESSURE DROPS IN A DANGEROUS LEVEL. PT VERBALIZED UNDERSTANDING.
[2019-01-22] MEDS ORDERED: SODIUM POLYSTYRENE SULFONATE 15 G/60 ML BOTTLE PO ONE (17:00)
[2019-01-22] MEDS ORDERED: SODIUM POLYSTYRENE SULFONATE 15 G/60 ML BOTTLE ONE (17:02)
--- NOTE | 2019-01-22 17:12 | NUR ---
PT INSTRUCTED OF NPO AFTER MIDNIGHT. PT VERBALIZED UNDERSTANDING
--- NOTE | 2019-01-22 17:18 | NUR ---
REPORT GIVEN TO PRAVEENA JACKSON OF TELE UNIT
[2019-01-22 18:00] VITALS: BP 91/55
--- NOTE | 2019-01-22 18:05 | NUR ---
ADMISSION NOTE PT WAS BROUGHT UP AT THIS TIME VIA GRISELDA MAYS BREATHING EVEN AND UNLABORED ON RA, NO S/S OR COMPLAINTS OF ANY PAIN OR DISTRESS AT THIS TIME, RIGHT FA #18 IV IS PATENT AND INTACT, PT IS AMBULATORY, MRSA PENDING, AMBULATORY, NOTED TO HAVE RECEIVED DIALYSIS TODAY, VS: BP 91/55, PULSE 74, TEMP 97.7, O2 99% ON RA. PER FITNESS MANAGEMENT DIRECTOR PLAN IS TO BE NPO PAST MIDNIGHT FOR SURGERY TOMORROW. SAFETY PRECAUTIONS IN PLACE, CALL LIGHT WITHIN REACH, WILL ENDORSE TO ONCOMING NIGHT RN FOR JONO.
[2019-01-22 18:20] VITALS: BP 91/55
[2019-01-22] MEDS ORDERED: MAGNESIUM HYDROXIDE 30 ML UDC PO PRN (19:00)
[2019-01-22] MEDS ORDERED: ONDANSETRON HCL/PF 4 MG/2 ML VIAL IVP PRN (19:00)
[2019-01-22] MEDS ORDERED: Z GUARD REMEDY 2 OZ OINT TP PRN (19:00)
[2019-01-22] MEDS ORDERED: ZOLPIDEM TARTRATE 5 MG TABLET PO PRN (19:00)
[2019-01-22] MEDS ORDERED: MAG HYDROX/AL HYDROX/SIMETH 30 ML UDC PO PRN (19:00)
[2019-01-22] MEDS ORDERED: DEXTROSE 50%-WATER 50 ML DISP.SYRIN IV PRN (19:00)
[2019-01-22] MEDS ORDERED: ACETAMINOPHEN 325 MG TABLET PO PRN (19:00)
--- NOTE | 2019-01-22 19:30 | NUR ---
RN NOTES RECEIVED PT. WAITING TO BE ADMITTED, A/OX4, SR ON TELE MONITOR HR-80, AT BEDSIDE, ADMISSION INSTRUCTION WAS RENDERED, CALL LIGHT WITHIN REACH, SIDERAILSUPX2, CONTINUE TO MONITOR
[2019-01-22 20:00] VITALS: BP 99/62
[2019-01-22] MEDS: BLOOD SUGAR DIAGNOSTIC 1 EACH STRIP VI SCH (21:30)
[2019-01-23] VITALS: BP_SYST 83; BP_SYST 85; BP_DIAS 61
--- NOTE | 2019-01-23 | NUR ---
RN NOTES PATENT BLOOD PRESSURE IS 85/61, PT STATED THAT HE'S FINE AND HE'S BLOOD PRESSURE ALWAYS RUNS LOW, EVEN IN ER IT WAS LOW BAND HE REFUSED BOLUS. PT. IS ASYMPTOMATIC AND DENIES PAIN
[2019-01-23 06:00] VITALS: BP 107/72
--- NOTE | 2019-01-23 06:00 | NUR ---
RN NOTES BP WENT UP TO 107/72
--- NOTE | 2019-01-23 06:47 | NUR ---
RN NOTES AWAKE, DENIES PAIN, NO SOB, MORNING CARE RENDERED, CALL LIGHT WITHIN REACH, SIDERAILSUPX2, PT. NEEDS ATTENDED
[2019-01-23 07:18] LABS: BASOPHILS # (AUTO) 0.2 /CMM (0.0-0.2); BASOPHILS % (AUTO) 2.8 % (0.0-2.0); HEMATOCRIT 53 % (39-51); HEMOGLOBIN 17.2 g/dL (13.5-17.5); LYMPHOCYTES # (AUTO) 1.7 /CMM (0.8-4.8); LYMPHOCYTES % (AUTO) 22.4 % (20.0-44.0); MEAN CORPUSCULAR HGB CONC 33 g/dl (31.0-36.0); MEAN CORPUSCULAR VOLUME 91 fL (80-96); MONOCYTES # (AUTO) 1.1 /CMM (0.1-1.30); MONOCYTES % (AUTO) 14.7 % (2.0-12.0); NEUTROPHILS # (AUTO) 4.2 /CMM (1.8-8.9); NEUTROPHILS % (AUTO) 55.1 % (43.0-81.0); PLATELET COUNT (AUTO) 171 /CMM (150-450); RED BLOOD CELL COUNT(AUTO) 5.79 MIL/uL (4.5-6.0); WHITE BLOOD COUNT (AUTO) 7.6 K/uL (4.3-11.0)
[2019-01-23] MEDS: BLOOD SUGAR DIAGNOSTIC 1 EACH STRIP VI SCH ×4 (07:27→21:00)
[2019-01-23 07:35] LABS: CALCIUM, SERUM 8.3 mg/dL (8.5-10.1); MAGNESIUM 2.6 mg/dL (1.8-2.4); PHOSPHORUS 5.4 mg/dL (2.5-4.9); POTASSIUM 4.4 mmol/L (3.5-5.1)
[2019-01-23 07:42] LABS: THYROID STIMULATING HORMONE 2.757 uIU/mL (0.358-3.74)
[2019-01-23 08:00] VITALS: BP_SYST 91; BP_DIAS 52; BP_DIAS 57
--- NOTE | 2019-01-23 08:00 | NUR ---
PIPE SMOKING MACHINE OPERATOR AM NOTE PT A/OX4 BREATHING EVEN AND UNLABORED ON RA, NO S/S OR COMPLAINTS OF ANY PAIN OR DISTRESS AT THIS TIME, RIGHT FA #18 IV IS PATENT AND INTACT, PT IS AMBULATORY, ON TELE WITH SR 69.ON NPO PAST MIDNIGHT DUE TO HD CATH EXCHANGE SURGERY TODAY. STABLE V/S.SAFETY PRECAUTIONS IN PLACE, CALL LIGHT WITHIN REACH,
[2019-01-23] MEDS ORDERED: HEPARIN SODIUM, PORCINE 1,000 UNIT/ML VIAL ONE (08:33)
[2019-01-23] MEDS ORDERED: LIDOCAINE HCL/PF 1% 30 ML SDV ONE (08:33)
[2019-01-23] MEDS ORDERED: IOHEXOL 50 ML IV ONE (08:33)
[2019-01-23] MEDS ORDERED: ANESTHESIA TRAY IN PYXIS 1 EA TRAY MC ONE (08:33)
--- NOTE | 2019-01-23 08:34 | NUR ---
BROUGHT TO O.R. WITH STABLE V/S.
[2019-01-23] MEDS ORDERED: MIDAZOLAM HCL 2 MG/2ML VIAL ONE (08:56)
[2019-01-23] MEDS ORDERED: FENTANYL PF 100MCG/2ML AMPUL ONE (08:56)
--- NOTE | 2019-01-23 10:10 | NUR ---
PT CAME BACK FROM O.R. S/P HD CATHETER EXCHANGE WITH STABLE V/S.BP 111/81 HR 70 RR 18 T 97.6 O2 SAT 96% DENYING ANY PAIN OR DISTRESS.PT C/O FEELING HUNGRY.WILL MONITOR.PT'S AT BEDSIDE.CXR DONE TO CHECK HD CATH PLACEMENT.
[2019-01-23] MEDS: INSULIN REGULAR, HUMAN 100 UNIT/ML 3 ML VIAL SQ PRN ×2 (12:05→16:49)
--- NOTE | 2019-01-23 12:15 | NUR ---
HD NURSE,GIORGIO AND IS ABOUT TO DO DIALYSIS ON THE PT.GIORGIO REPORTED THAT THE HD CATH ISN'T WORKING.NOTIFIED RENETTA BLAKELYLINESPERSON.
--- NOTE | 2019-01-23 12:16 | NUR ---
CALLED DR YOUNG 6X BUT TO NO AVAIL AND NO VOICEMAIL BOX AVAILABLE TO LEAVE A MESSAGE FOR PT'S HD RT CW HD CATH NOT WORKING.
--- NOTE | 2019-01-23 13:00 | NUR ---
CLARIFIED WITH ZORA,RN AND PT IS UNDERGOING DIALYSIS AT THIS TIME.
[2019-01-23] MEDS ORDERED: HYDROCODONE/APAP 5/325MG 1 EACH TABLET PO PRN (15:00)
--- NOTE | 2019-01-23 16:00 | NUR ---
HD NURSE,GIORGIO EXPLAINED THAT SHE EXCHANGED IN GETTING THE BLOOD FROM THE VEIN INSTEAD OF THE ARTERY WHICH IS NOT WORKING.WILL INFORM DR CLARKE AND FOLLOW UP WITH DR YOUNG TOMORROW REGARDING THE NON FUNCTIONING ARTERIAL PORT NOT PULLING CATHETER.
--- NOTE | 2019-01-23 16:00 | NUR ---
HEMODIALYSIS PROCEDURE COMPLETED WITH 2.5 LITERS OUTPUT.WITH STABLE V/S. BP 103/70 HR 81.
[2019-01-23] MEDS: CEPHALEXIN MONOHYDRATE 250 MG CAPSULE PO SCH ×2 (16:02→21:00)
--- NOTE | 2019-01-23 16:34 | NUR ---
KEFLEX 250 MG PO GIVEN 25 MINS AGO AND ITS TOO SOON TO ADMINISTER THE KEFLEX 250 MG FOR 0 WILL ENDORSE AND ADMINISTER AT 1999.
[2019-01-23] MEDS: HYDROCODONE/APAP 5/325MG 1 EACH TABLET PO PRN (17:22)
--- NOTE | 2019-01-23 18:38 | NUR ---
PT RESTING IN BED WITH AT BEDSIDE. WANTS TO ADDRESS REQUEST TO DR YOUNG IF DR YOUNG CAN FIX PT'S SHUNT IN THE RIGHT ARM AND FIX PT'S ARTERIAL PORT IN RT CHEST WALL WELL.
--- NOTE | 2019-01-23 19:30 | NUR ---
RN NOTES RECEIVED PT. AWAKE ON BED, A/OX3, AMBULATORY AT BEDSIDE, S/P HD CATH EXCHANGE, DENIES PAIN, NO SOB, CALL LIGHT WITHIN REACH, SIDERAILSUPX2, CONTINUE TO MONITOR
[2019-01-23 20:00] VITALS: BP 91/59
--- NOTE | 2019-01-24 06:25 | NUR ---
RN NOTES BLOOD SUGAR-150 REFUSED INSULIN COVERAGE
--- NOTE | 2019-01-24 06:43 | NUR ---
RN NOTES AWAKE, MORNING CARE RENDERED, DENIES PAIN, NO SOB, CALL LIGHT WITHIN REACH, SIDERAILSUPX2, PT. NEEDS ATTENDED
[2019-01-24 07:05] LABS: BASOPHILS # (AUTO) 0.1 /CMM (0.0-0.2); BASOPHILS % (AUTO) 1.6 % (0.0-2.0); EOSINOPHILS % (AUTO) 3.5 % (0.0-6.0); HEMATOCRIT 51 % (39-51); HEMOGLOBIN 16.7 g/dL (13.5-17.5); LYMPHOCYTES # (AUTO) 1.4 /CMM (0.8-4.8); LYMPHOCYTES % (AUTO) 21.6 % (20.0-44.0); MEAN CORPUSCULAR HGB CONC 33 g/dl (31.0-36.0); MEAN CORPUSCULAR VOLUME 90 fL (80-96); MONOCYTES # (AUTO) 1.2 /CMM (0.1-1.30); MONOCYTES % (AUTO) 17.6 % (2.0-12.0); NEUTROPHILS # (AUTO) 3.7 /CMM (1.8-8.9); NEUTROPHILS % (AUTO) 55.7 % (43.0-81.0); PLATELET COUNT (AUTO) 149 /CMM (150-450); RED BLOOD CELL COUNT(AUTO) 5.69 MIL/uL (4.5-6.0); WHITE BLOOD COUNT (AUTO) 6.6 K/uL (4.3-11.0)
--- NOTE | 2019-01-24 07:10 | NUR ---
RN OPENING NOTES RECEIVED PATIENT IN BED RESTING. A/OX4, ABLE TO MAKE NEEDS KNOWN. NOT IN ANY FORM OF DISTRESS, NO SOB. DENIED PAIN OR DISCOMFORT AT THIS TIME. IV ACCESS INTACT AND PATENT. HD CATH IN PLACE, DRESSING C/D/I. KEPT PATIENT SAFE AND COMFORTABLE. BED IN LOW/LOCKED POSITION, SIDERAILS UPX2, CALL LIGHT IN REACH. WILL CONTINUE TO MONITOR ACCORDINGLY.
[2019-01-24 07:19] LABS: CALCIUM, SERUM 8.7 mg/dL (8.5-10.1); MAGNESIUM 2.6 mg/dL (1.8-2.4); PHOSPHORUS 4.9 mg/dL (2.5-4.9); POTASSIUM 5.6 mmol/L (3.5-5.1)
[2019-01-24 07:21] LABS: CREATININE 11.2 mg/dL (0.6-1.3)
[2019-01-24] MEDS: BLOOD SUGAR DIAGNOSTIC 1 EACH STRIP VI SCH ×4 (07:53→21:31)
[2019-01-24 08:00] VITALS: BP 85/60
[2019-01-24] MEDS: CEPHALEXIN MONOHYDRATE 250 MG CAPSULE PO SCH ×2 (08:16→17:42)
[2019-01-24 08:46] LABS: LYMPHOCYTES % (MANUAL) 23 % (16-48); MONOCYTES % (MANUAL) 16 % (0-11.0); NEUTROPHILS % (MANUAL) 61 (42-76)
[2019-01-24] MEDS ORDERED: ALPRAZOLAM 1 MG TABLET PO PRN (09:00)
[2019-01-24] MEDS ORDERED: SODIUM POLYSTYRENE SULF. PWD 15 GM UDC PO PRN (09:00)
[2019-01-24] MEDS ORDERED: POLYVINYL ALCOHOL 15 ML BOTTLE EACHEYE PRN (09:00)
[2019-01-24] MEDS: TIMOLOL 0.5% SOLN OPHTH 5 ML BOTTLE EACHEYE SCH ×2 (09:00→17:00)
[2019-01-24] MEDS: CINACALCET HCL 30 MG TABLET PO SCH (09:30)
--- NOTE | 2019-01-24 09:45 | NUR ---
RN NOTES PATIENT REFUSED EYEDROPS. STATING THAT HE HAS HIS MEDICATIONS IN THE BAG AND ALREADY TAKEN IT ALONG WITH HIS PILLS IN THE MORNING. EXPLAINED HOSPITAL'S POLICY. PATIENT REFUSED TO HAND HIS MEDICATIONS TO THE PHARMACY FOR SAFE KEEPING. PATIENT STATED THAT HE KNOWS HIS MEDICATION AND WILL LET NURSES KNOW WHAT HE TAKES TO PREVENT ANY COMPLICATIONS AND MED ERROR. DR MILTON IS AWARE.
[2019-01-24] MEDS: DOCUSATE SODIUM 100 MG CAPSULE PO SCH (09:52)
[2019-01-24] MEDS: INSULIN GLARGINE, 100 UNIT/ML CARTRIDGE SQ SCH ×2 (09:54→21:34)
--- NOTE | 2019-01-24 11:08 | NUR ---
WOUND CARE CONSULT: PT PRESENTS WITH LEFT FOOT ULCER, PRESENT ON ADMISSION. RECEIVED WOUND CARE ORDERS FROM DR SKINNER BY PHONE. DR SKINNER PREVIOUSLY FOLLOWED PT FOR WOUND. PT NOTED TO BE ANGRY WITH NURSING STAFF AND PHYSICIANS. PT RAISED HIS VOICE AND STATED "IM NOT STUPID. YOU THINK IM STUPID." WILL SEE PRN. GARZA IN AGREEMENT WITH PLAN OF CARE. PT IS INDEPENDENT WITH BED MOBILITY AND CONTINENT. Addendum: 01/24/19 at 1112 by JUAN ALBERTO SWARTZ WNDNU Amended: Links added.
[2019-01-24] MEDS: INSULIN REGULAR, HUMAN 100 UNIT/ML 3 ML VIAL SQ PRN (12:21)
[2019-01-24] MEDS: SEVELAMER CARBONATE 800 MG TABLET PO SCH ×2 (12:26→17:43)
[2019-01-24] MEDS: BRIMONIDINE TARTRATE OPHT SOLN 5 ML BOTTLE EACHEYE SCH ×2 (12:44→17:00)
[2019-01-24] MEDS ORDERED: INSULIN LISPRO/ASPART 100 UNIT/ML CARTRIDGE SQ SCH (13:00)
[2019-01-24] MEDS ORDERED: ALBUTEROL FS 2.5 MG/0.5 ML VIAL.NEB NEB PRN (13:30)
[2019-01-24] MEDS ORDERED: ALBUMIN 25% 25 GM in PREMIX 1 EA IV PRN (14:00)
[2019-01-24] MEDS: CADEXOMER IODINE 40 GM TUBE TP SCH (14:43)
[2019-01-24 16:00] VITALS: BP 122/78
--- NOTE | 2019-01-24 16:41 | NUR ---
RN NOTES: MRI PATIENT NOT A MRI CANDIDATE, PATIENT HAS DEFIBRILLATOR PER NURSE CLINICIAN.
--- NOTE | 2019-01-24 16:43 | NUR ---
RN NOTES HEMODIALYSIS STARTED. AT BEDSIDE.
--- NOTE | 2019-01-24 17:47 | NUR ---
WOUND CULTURE COLLECTED, CALLED LAB FOR PHOTOGRAPHIC AIDE
--- NOTE | 2019-01-24 18:46 | NUR ---
RN CLOSING NOTES PATIENT IN STABLE CONDITION. ALL NEEDS ATTENDED AND PROVIDED. ASSISTED WITH ADLS. ALL DUE MEDICATIONS GIVEN ORDERED. KEPT PATIENT SAFE AND COMFORTABLE. BED IN LOW/LOCKED POSITION, SIDERAILS UPX2, CALL LIGHT IN REACH. WILL ENDORSED TO NIGHT RN FOR JONO.
--- NOTE | 2019-01-24 18:48 | NUR ---
RN NOTES HEMODIALYSIS STILL ONGOING. TOLERATING WELL. AT BEDSIDE.
--- NOTE | 2019-01-24 19:20 | NUR ---
RN OPEN NOTES RECEIVED PATIENT AWAKE IN BED WITH AT BEDSIDE. A/OX4. NO SIGNS OF DISTRESS OR DISCOMFORT. BREATHING EVEN AND UNLABORED. PATIENT CURRENTLY RECEIVING HD WITH HD NURSE AT BEDSIDE AND PT TOLERATING WELL. HAS RCW HD CATH INTACT. IV ACCESS IN RFA, PATENT AND INTACT, NO SIGNS OF REDNESS OR INFILTRATION. BED IN LOW LOCKED POSITION WITH SIDE RAILS X2. CALL LIGHT WITHIN REACH. WILL CONTINUE TO MONITOR.
--- NOTE | 2019-01-24 19:40 | NUR ---
RN NOTES HD DONE WITH 2500 ML OUTPUT. PATIENT TOLERATED WELL WITH NO COMPLICATIONS NOTED. BP 105/45 P78, PER HD NURSE. WILL CONTINUE TO MONITOR.
[2019-01-24 20:00] VITALS: BP 115/66
[2019-01-24] MEDS: SIMVASTATIN 40 MG TABLET PO SCH (21:32)
[2019-01-24] MEDS: *INSULIN REGULAR(HUMULIN R)HUM 100 UNIT/ML VIAL SQ PRN (21:34)
[2019-01-25 06:26] LABS: BASOPHILS # (AUTO) 0.2 /CMM (0.0-0.2); BASOPHILS % (AUTO) 2.5 % (0.0-2.0); EOSINOPHILS % (AUTO) 3.2 % (0.0-6.0); HEMATOCRIT 49 % (39-51); LYMPHOCYTES # (AUTO) 1.3 /CMM (0.8-4.8); MEAN CORPUSCULAR HGB CONC 33 g/dl (31.0-36.0); MEAN CORPUSCULAR VOLUME 91 fL (80-96); MONOCYTES # (AUTO) 1.4 /CMM (0.1-1.30); MONOCYTES % (AUTO) 19.5 % (2.0-12.0); NEUTROPHILS % (AUTO) 56.8 % (43.0-81.0); PLATELET COUNT (AUTO) 141 /CMM (150-450); RED BLOOD CELL COUNT(AUTO) 5.39 MIL/uL (4.5-6.0)
[2019-01-25 06:29] LABS: CALCIUM, SERUM 8.3 mg/dL (8.5-10.1); MAGNESIUM 2.4 mg/dL (1.8-2.4); PHOSPHORUS 3.9 mg/dL (2.5-4.9); POTASSIUM 5.6 mmol/L (3.5-5.1)
[2019-01-25 06:37] LABS: CREATININE 10.6 mg/dL (0.6-1.3)
[2019-01-25] MEDS: BLOOD SUGAR DIAGNOSTIC 1 EACH STRIP VI SCH ×4 (06:38→21:03)
--- NOTE | 2019-01-25 06:53 | NUR ---
RN CLOSING NOTES PATIENT RESTING IN BED. A/OX4. NO SIGNS OF DISTRESS OR DISCOMFORT. BREATHING EVEN AND UNLABORED. HAS RCW HD CATH INTACT. IV ACCESS IN RFA, PATENT AND INTACT, NO SIGNS OF REDNESS OR INFILTRATION. ALL NEEDS MET. NO SIGNIFICANT CHANGES THROUGH THE NIGHT. PATIENT REFUSED SS INSULIN COVERAGE FOR BS 165. STATES HE WANTS TO WAIT UNTIL AFTER HE EATS FOR HIS INSULIN. BED IN LOW LOCKED POSITION WITH SIDE RAILS X2. CALL LIGHT WITHIN REACH. WILL ENDORSE TO AM SHIFT FOR JONO.
[2019-01-25 08:00] VITALS: BP_SYST 83; BP_SYST 90; BP_DIAS 48; BP_DIAS 50
--- NOTE | 2019-01-25 08:00 | NUR ---
RN NOTES RECEIVED PATIENT IN THE BED A/O X4, PATIENT STABLE HAS NO ACUTE RESPIRATORY DISTRESS. ENCOURAGED TO EXPRESS FEELINGS AND CONCERNS. PATIENT HAS A HD SHUNT ON RIGHT UPPER CHEST INTACT. PATIENT REFUSED PAIN AT THIS TIME, IV ACCESS ON RIGHT FA INTACT. DRESSING CHANGED ON RIGHT FOOT. ADMINISTERED SCHEDULED MEDICATION. BS-206 MG/DL COVERAGE GIVEN. PATIENT AMBULATORY, TURN AND REPOSTION SELF IN THE BED. PATIENT ANURIC. CALL LIGHT WITHIN TO REACH. SEEN PATIENT BY DR MILTON. CONTINUED MONITORING.
[2019-01-25] MEDS ORDERED: CEPH250C PO (08:25)
[2019-01-25] MEDS: PANTOPRAZOLE 40 MG TABLET.DR PO SCH (08:27)
[2019-01-25] MEDS: DOCUSATE SODIUM 100 MG CAPSULE PO SCH (08:27)
[2019-01-25] MEDS: SEVELAMER CARBONATE 800 MG TABLET PO SCH ×3 (08:27→18:00)
[2019-01-25] MEDS: CINACALCET HCL 30 MG TABLET PO SCH (08:28)
[2019-01-25] MEDS: BRIMONIDINE TARTRATE OPHT SOLN 5 ML BOTTLE EACHEYE SCH ×3 (08:29→18:06)
[2019-01-25] MEDS: TIMOLOL 0.5% SOLN OPHTH 5 ML BOTTLE EACHEYE SCH ×2 (08:35→18:06)
[2019-01-25] MEDS: INSULIN GLARGINE, 100 UNIT/ML CARTRIDGE SQ SCH ×2 (08:40→20:21)
[2019-01-25] MEDS: INSULIN REGULAR, HUMAN 100 UNIT/ML 3 ML VIAL SQ PRN ×2 (08:41→12:24)
[2019-01-25] MEDS: CADEXOMER IODINE 40 GM TUBE TP SCH (08:42)
[2019-01-25] MEDS ORDERED: FEE PK DOSING 1 MIN EA MC ONE (08:52)
[2019-01-25] MEDS ORDERED: VANCOMYCIN 1 GM in IV D5W 250 ML IV ONE (09:00)
[2019-01-25 10:26] LABS: EOSINOPHILS % (MANUAL) 4 % (0-4); LYMPHOCYTES % (MANUAL) 14 % (16-48); MONOCYTES % (MANUAL) 19 % (0-11.0); NEUTROPHILS % (MANUAL) 63 (42-76)
--- NOTE | 2019-01-25 12:00 | NUR ---
RN NOTES BS-265 MG/DL COVERAGE GIVEN. GET CALL FROM Dr ULLOA VASCULAR SURGEON. PATIENT WILL HAVE A HEMODIALYSIS CATHETER REPLACEMENT TOMORROW. MD TALK WITH THE PATIENT BY PHONE AND EXPLAINED NEEDS OF NEW HD LINE PLACEMENT. ABNORMAL LABS MD'S AWARE OF. PATIENT AGREES AND SIGN CONSENT FORM. ADMINISTERED SCHEDULED MEDICATION. CONTINUED MONITORING.
[2019-01-25] MEDS ORDERED: SODIUM POLYSTYRENE SULFONATE 15 G/60 ML BOTTLE PO ONE (13:30)
[2019-01-25 16:00] VITALS: BP 84/60
--- NOTE | 2019-01-25 16:30 | NUR ---
RN NOTES SEEN PATIENT BY ID MD, NO NEW ORDERS.
--- NOTE | 2019-01-25 18:30 | NUR ---
RN NOTES BS-144 MG/DL NO COVERAGE GIVEN, BECAUSE PATIENT REFUSED EAT, AND REFUSED RENAGEL. PATIENT STABLE, REFUSED PAIN. CALL LIGHT WITHIN TO REACH. ENDORSED ONCOMING NURSE FOLLOW PLAN OF CARE.
--- NOTE | 2019-01-25 19:05 | NUR ---
MS RENETTA OPENING NOTES: RECEIVED PT ON ROOM AIR AND IS TOLERATING WELL. PT WATCHING TELEVISION AT THIS TIME. NO SOB NOTED. NO S/S OF DISTRESS. NOTED HD CATH BUT IS NO LONGER FUNCTIONING. PT TO GO FOR REPLACEMENT TOMORROW. PT UNDERSTOOD THAT HE IS TO BE NPO POST MIDNIGHT. BED KEPT IN LOW, LOCKED POSITION, AND SIDE RAILS X 2UP. IV ON RIGHT FOREARM #!8G IS PATENT AND INTACT. CURRENTLY H/L. WILL CONTINUE TO MONITOR PT. Addendum: 01/25/19 at 2036 by ZENON AL RN HD CATH ON R CHEST WALL PT STATES THAT IT IS PARTIALLY FUNCTIONING. NOTED KEPT CLEAN AND DRY.
[2019-01-25 19:24] VITALS: BP 101/70
[2019-01-25 20:00] VITALS: BP 93/65
--- NOTE | 2019-01-25 20:21 | NUR ---
MS RN NOTES: PT REFUSING LANTUS 20 UNITS. PT IS AWARE THAT HIS BLOOD SUGAR IS 175. HE HAS NOT HAD THE APPETITE FOR DINNER AND UNDERSTANDS THAT HE IS NPO POST MIDNIGHT. PT REQUESTING FOR FAST ACTING INSULIN INSTEAD. WILL CONTINUE TO MONITOR PT.
[2019-01-25] MEDS: MIDODRINE HCL (5MG) 5 MG TABLET PO PRN (20:28)
[2019-01-25] MEDS: SIMVASTATIN 40 MG TABLET PO SCH (21:03)
[2019-01-25] MEDS: *INSULIN REGULAR(HUMULIN R)HUM 100 UNIT/ML VIAL SQ PRN (21:05)
--- NOTE | 2019-01-25 21:05 | NUR ---
MS RN NOTES: BLOOD SUGAR THIS PM WAS 175. PT WAS ADMINISTERED 3 UNITS OF INSULIN. PT STILL HAD DINNER AND SNACKS AT BEDSIDE. WILL CONTINUE TO MONITOR. AGAIN, EXPLAINED TO PT THAT HE IS TO BE NPO POST MIDNIGHT AND PT UNDERSTOOD.
[2019-01-25 22:41] VITALS: BP 93/63
--- NOTE | 2019-01-26 04:21 | NUR ---
MS RN NOTES: PT AWAKE AND WATCHING TELEVISION. PT RESTING COMFORTABLY. OFFERED TO CHANGE L FOOT DRESSING. "IT WAS JUST CHANGED YESTERDAY." WILL TRY AGAIN AT ANOTHER TIME.
[2019-01-26 06:25] LABS: BASOPHILS # (AUTO) 0.2 /CMM (0.0-0.2); BASOPHILS % (AUTO) 2.6 % (0.0-2.0); EOSINOPHILS % (AUTO) 4.4 % (0.0-6.0); HEMATOCRIT 49 % (39-51); LYMPHOCYTES # (AUTO) 1.1 /CMM (0.8-4.8); LYMPHOCYTES % (AUTO) 15.6 % (20.0-44.0); MEAN CORPUSCULAR HGB CONC 33 g/dl (31.0-36.0); MEAN CORPUSCULAR VOLUME 90 fL (80-96); MONOCYTES # (AUTO) 1.1 /CMM (0.1-1.30); NEUTROPHILS # (AUTO) 4.5 /CMM (1.8-8.9); NEUTROPHILS % (AUTO) 62.4 % (43.0-81.0); PLATELET COUNT (AUTO) 164 /CMM (150-450); RED BLOOD CELL COUNT(AUTO) 5.38 MIL/uL (4.5-6.0); WHITE BLOOD COUNT (AUTO) 7.3 K/uL (4.3-11.0)
[2019-01-26] MEDS: *INSULIN REGULAR(HUMULIN R)HUM 100 UNIT/ML VIAL SQ PRN ×2 (06:26→21:25)
[2019-01-26] MEDS: BLOOD SUGAR DIAGNOSTIC 1 EACH STRIP VI SCH ×4 (06:26→21:27)
--- NOTE | 2019-01-26 06:27 | NUR ---
rn ms notes assisted with care accucheck 149 no insulin given npo status for surgery. patient aware.
[2019-01-26 06:45] LABS: CALCIUM, SERUM 7.8 mg/dL (8.5-10.1); MAGNESIUM 2.4 mg/dL (1.8-2.4); PHOSPHORUS 4.6 mg/dL (2.5-4.9); POTASSIUM 4.5 mmol/L (3.5-5.1)
[2019-01-26] MEDS ORDERED: VANCOMYCIN 500 MG in IV D5W 100 ML IV PRN (07:00)
[2019-01-26 07:01] LABS: CREATININE 12.4 mg/dL (0.6-1.3)
[2019-01-26] MEDS: PANTOPRAZOLE 40 MG TABLET.DR PO SCH (07:30)
--- NOTE | 2019-01-26 07:39 | NUR ---
MS RN CLOSING NOTES: ALL NEEDS WERE ATTENDED AND ANTICIPATED FOR. PT KEPT CLEAN, DRY, AND COMFORTABLE. NO SOB NOTED. NO S/S OF DISTRESS. IV REMAINS INTACT. CURRENTLY H/L. PT HAS BEEN NPO SINCE MIDNIGHT. PT TO GO FOR PROCEDURE AT 0900. BED KEPT IN LOW, LOCKED POSITION, AND SIDE RAILS X 2UP. BLOOD SUGAR THIS AM WAS 149. NO INSULIN WAS ADMINISTERED D/T BEING NPO AND FOR A 0900 HD CATH REPLACEMENT. ENDORSED TO AM NURSE FOR JONO.
[2019-01-26 08:00] VITALS: BP_SYST 108; BP_SYST 110; BP_DIAS 66; BP_DIAS 69
[2019-01-26] MEDS: SEVELAMER CARBONATE 800 MG TABLET PO SCH ×3 (08:00→17:59)
--- NOTE | 2019-01-26 08:00 | NUR ---
RN NOTES RECEIVED PATIENT IN THE BED A/O X4. PATIENT HAS NO ACUTE RESPIRATORY DISTRESS, V/S STABLE BP-108/66, P-70. PATIENT NPO SCHEDULED 0900 HEMODIALYSIS CATHETER REPLACEMENT BY Dr. YOUNG. SCHEDULED MEDICATION HELD BECAUSE OF SURGERY. NEXT TO THE BED. CALL LIGHT WITHIN TO REACH. CONTINUED MONITORING.
[2019-01-26] MEDS: DOCUSATE SODIUM 100 MG CAPSULE PO SCH (08:15)
[2019-01-26] MEDS: CINACALCET HCL 30 MG TABLET PO SCH (08:15)
[2019-01-26] MEDS ORDERED: LIDOCAINE HCL/PF 1% 30 ML SDV ONE (08:32)
[2019-01-26] MEDS ORDERED: ANESTHESIA TRAY IN PYXIS 1 EA TRAY MC ONE (08:32)
[2019-01-26] MEDS ORDERED: HEPARIN SODIUM, PORCINE 1,000 UNIT/ML VIAL ONE (08:32)
--- NOTE | 2019-01-26 08:45 | NUR ---
RN NOTES PATIENT STABLE, CREATIVE SERVICES COORDINATOR FOR SURGERY AT THIS TIME.
[2019-01-26] MEDS ORDERED: MIDAZOLAM HCL 2 MG/2ML VIAL ONE (09:00)
[2019-01-26] MEDS: INSULIN GLARGINE, 100 UNIT/ML CARTRIDGE SQ SCH ×2 (09:00→21:24)
[2019-01-26] MEDS ORDERED: IOHEXOL 0 ML IV ONE (09:03)
[2019-01-26] MEDS: TIMOLOL 0.5% SOLN OPHTH 5 ML BOTTLE EACHEYE SCH ×2 (09:51→18:03)
[2019-01-26] MEDS: CADEXOMER IODINE 40 GM TUBE TP SCH (09:51)
[2019-01-26] MEDS: BRIMONIDINE TARTRATE OPHT SOLN 5 ML BOTTLE EACHEYE SCH ×3 (09:51→18:03)
[2019-01-26 10:35] VITALS: BP 117/71
--- NOTE | 2019-01-26 10:35 | NUR ---
RN NOTE S PATIENT BACK FROM SURGERY, NEW HD CATH ON RIGHT UPPER CHEST. PATIENT ON TELE .TELE MONITOR ON , V/S TAKEN BP117/71, P-66. PATIENT WAS COMPLAINING OF PAIN ON RIGHT ARM, HD INSERTION SIDE, AND HEADACHE. NEW ORDERS TAKEN AND CARRIED OUT.CONTINUED MONITORING.
[2019-01-26] MEDS: HYDROCODONE/APAP 5/325MG 1 EACH TABLET PO PRN ×3 (11:03→23:52)
--- NOTE | 2019-01-26 11:03 | NUR ---
RN NOTES ADMINISTERED NARCO 5/325 MG PO PRN FOR PAIN 5/10 PER PAIN SCALE, V/S TAKEN BP -131/90, P-67. SR- 64. CONTINUED MONITORING.
[2019-01-26 11:31] LABS: BAND % (MANUAL) 1 % (0.0-5.0); EOSINOPHILS % (MANUAL) 2 % (0-4); LYMPHOCYTES % (MANUAL) 17 % (16-48); MONOCYTES % (MANUAL) 12 % (0-11.0); NEUTROPHILS % (MANUAL) 66 (42-76); REACTIVE LYMPHOCYTES 2 % (0-0)
[2019-01-26] MEDS: INSULIN REGULAR, HUMAN 100 UNIT/ML 3 ML VIAL SQ PRN (11:58)
[2019-01-26 12:00] VITALS: BP 123/80
--- NOTE | 2019-01-26 12:55 | NUR ---
RN NOTES BS-171 MG/DL, COVERAGE GIVEN, V/S STABLE, ALSO ADMINISTERED SCHEDULED MEDICATION. MEDICATION WERE ADMINISTERED FOR PAIN EFFECTIVE. PATIENT HAS NO ACUTE RESPIRATORY DISTRESS. NEXT TO THE BED, CALL LIGHT WITHIN TO REACH, HD CATHETER INTACT, NO S/S OF BLEEDING. CONTINUED MONITORING.
--- NOTE | 2019-01-26 15:30 | NUR ---
RN NOTES PATIENT GETTING HEMODIALYSIS AT THIS JEVON, DVT PIMP ON, CONTINUED MONITORING.
[2019-01-26 16:00] VITALS: BP 92/37
[2019-01-26] MEDS: ANCEF 1 GM/50 ML D5W IV SCH ×2 (18:00)
--- NOTE | 2019-01-26 18:01 | NUR ---
RN NOTES ADMINISTERED NARCO 5/325 MG PO PRN FOR RIGHT UPPER SHOULDER PAIN 5/10 PER PATIENT REQUEST, V/S TAKEN BP 92/64, P-60. BS-129 MG/DL. ALSO ADMINISTERED SCHEDULED MEDICATION. CONTINUED MONITORING.
--- NOTE | 2019-01-26 18:30 | NUR ---
RN NOTES MEDICATION WERE ADMINISTERED FOR PAIN EFFECTIVE, V/S STABLE, FINISHED HD, OUTPUT WAS 1000 ML. PATIENT EATING. ADMINISTERED SCHEDULED MEDICATION. CALL LIGHT WITHIN TO REACH. ENDORSED ONCOMING NURSE FOLLOW PLAN OF CARE.
--- NOTE | 2019-01-26 19:47 | NUR ---
MS JACKSON OPENING NOTES: RECEIVED PT ON ROOM AIR AND IS TOLERATING WELL. NO SOB NOTED . PT STATES HE IS IN MILD PAIN FROM THE NEW REPLACEMENT OF HD CATH. PT APPEARS TO BE FRUSTRATED AT THIS TIME HIS NEW CATH SITE IS NOT FULLY WORKING. PT HAS IV ON R FOREARM AND IS FINISHING OFF ANCEF AT THIS TIME. AT BEDSIDE. BED KEPT IN LOW, LOCKED POSITION, AND SIDE RAILS X 2UP. WILL CONTINUE TO MONITOR PT. Addendum: 01/26/19 at 2231 by ZENON AL RN NOTED HD CATH SITE KEPT CLEAN AND DRY WITH DRESSING BEING SATURATED WITH BLOOD. WILL CONTINUE TO MONITOR.
--- NOTE | 2019-01-26 19:57 | NUR ---
MS JACKSON NOTES: DR. ARREAGA AT BEDSIDE. Addendum: 01/26/19 at 1958 by ZENON AL RN WILL POSSIBLY START KEFLEX PO ABX IN THE MORNING.
[2019-01-26 20:00] VITALS: BP 119/82
--- NOTE | 2019-01-26 21:25 | NUR ---
MS RN NOTES: BLOOD SUGAR THIS PM WAS 182. PT WAS ADMINISTERED ORDERED LANTUS AND 3 UNITS OF REGULAR INSULIN. PT HAS FOOD AT BEDSIDE. WILL CONTINUE TO MONITOR.
[2019-01-26] MEDS: SIMVASTATIN 40 MG TABLET PO SCH (21:27)
[2019-01-26 23:58] VITALS: BP 111/73
--- NOTE | 2019-01-26 23:59 | NUR ---
MS JACKSON NOTES: PT COMPLAINING OF 5/10 NECK PAIN (RIGHT SIDE). PT WAS ADMINISTERED NORCO 5 PO. WILL CONTINUE TO MONITOR. Addendum: 01/27/19 at 0000 by ZENON AL RN STILL AT BEDSIDE. PT APPEARS TO BE IN A BETTER MOOD.
[2019-01-27] MEDS: ANCEF 1 GM/50 ML D5W IV SCH ×2
--- NOTE | 2019-01-27 06:27 | NUR ---
MS RN CLOSING NOTES: ALL NEEDS WERE ATTENDED AND ANTICIPATED FOR. IV REMAINS INTACT. CURRENTLY H/L. PT LAYING IN BED WATCHING TELEVISION. PT JUST GOT DONE DOING SOME EXERCISES IN BED. R IJ CATH REMAINS INTACT AND IS KEPT CLEAN AND DRY. PT ANTICIPATING THE PLAN FOR WHAT IS TO HAPPEN NEXT SINCE HIS HD CATH IS NOT FUNCTIONING AGAIN. BED KEPT IN LOW, LOCKED POSITION, AND SIDE RAILS X 2UP. BLOOD SUGAR THIS AM WAS 113. NO INSULIN WAS ADMINISTERED. WILL ENDORSE TO AM NURSE FOR JONO.
[2019-01-27] MEDS: BLOOD SUGAR DIAGNOSTIC 1 EACH STRIP VI SCH ×4 (06:38→21:55)
[2019-01-27 07:08] LABS: BASOPHILS # (AUTO) 0.1 /CMM (0.0-0.2); EOSINOPHILS % (AUTO) 4.3 % (0.0-6.0); HEMATOCRIT 47 % (39-51); HEMOGLOBIN 15.6 g/dL (13.5-17.5); LYMPHOCYTES % (AUTO) 15.7 % (20.0-44.0); MEAN CORPUSCULAR HGB CONC 33 g/dl (31.0-36.0); MEAN CORPUSCULAR VOLUME 90 fL (80-96); MONOCYTES # (AUTO) 1.3 /CMM (0.1-1.30); MONOCYTES % (AUTO) 19.6 % (2.0-12.0); NEUTROPHILS # (AUTO) 3.9 /CMM (1.8-8.9); NEUTROPHILS % (AUTO) 58.4 % (43.0-81.0); PLATELET COUNT (AUTO) 157 /CMM (150-450); RED BLOOD CELL COUNT(AUTO) 5.21 MIL/uL (4.5-6.0); WHITE BLOOD COUNT (AUTO) 6.7 K/uL (4.3-11.0)
[2019-01-27 07:35] LABS: MAGNESIUM 2.5 mg/dL (1.8-2.4); PHOSPHORUS 5.6 mg/dL (2.5-4.9); POTASSIUM 4.6 mmol/L (3.5-5.1)
[2019-01-27 07:43] LABS: CREATININE 13.5 mg/dL (0.6-1.3)
[2019-01-27 08:00] VITALS: BP 92/57
--- NOTE | 2019-01-27 08:00 | NUR ---
RN NOTES PATIENT STABLE A/O X3,REFUSED PAIN, DIZZINESS,AND DIARRHEA. ADMINISTERED SCHEDULED MEDICATION. PATIENT A/O X4, V/S STABLE. RIGHT UPPER SIDE HD CATHETER INTACT. IV ACCESS ON RIGHT FA INTACT. CHANGE DRESSING ON LEFT PLANTER WOUND. Dr. MILTON AWARE OF ABNORMAL ELEVATED BUN, AND CREATININE. BS-173 MG/DL COVERAGE GIVEN. NEXT TO THE BED. PATIENT EAT 50% OF FOOD. CALL LIGHT WITHIN TO REACH, SAFETY PRECAUTION MAINTAINED ALL THE TIME.
[2019-01-27] MEDS: PANTOPRAZOLE 40 MG TABLET.DR PO SCH (08:47)
[2019-01-27] MEDS: DOCUSATE SODIUM 100 MG CAPSULE PO SCH (08:47)
[2019-01-27] MEDS: CINACALCET HCL 30 MG TABLET PO SCH (08:47)
[2019-01-27] MEDS: SEVELAMER CARBONATE 800 MG TABLET PO SCH ×3 (08:48→18:00)
[2019-01-27] MEDS: INSULIN GLARGINE, 100 UNIT/ML CARTRIDGE SQ SCH (08:56)
[2019-01-27] MEDS: CADEXOMER IODINE 40 GM TUBE TP SCH (08:57)
[2019-01-27] MEDS: INSULIN REGULAR, HUMAN 100 UNIT/ML 3 ML VIAL SQ PRN (08:59)
[2019-01-27] MEDS: BRIMONIDINE TARTRATE OPHT SOLN 5 ML BOTTLE EACHEYE SCH ×3 (08:59→17:00)
[2019-01-27] MEDS: TIMOLOL 0.5% SOLN OPHTH 5 ML BOTTLE EACHEYE SCH ×2 (08:59→17:00)
--- NOTE | 2019-01-27 09:30 | NUR ---
RN NOTES KEISHA CALL FROM VASCULAR SURGEON Dr YOUNG AND GET ORDER NEW HEMODIALYSIS ON LEFT ARM, ALSO PATIENT NPO. ORDERS TAKEN AND CARRIED OUT.
--- NOTE | 2019-01-27 11:48 | NUR ---
RN NOTES PATIENT SIGN CONSENT FORM., BS-150MG/DL, NO COVERAGE GIVEN, PATIENT NPO.
[2019-01-27] MEDS ORDERED: CEPHALEXIN MONOHYDRATE 500 MG CAPSULE PO SCH (12:00)
[2019-01-27 15:05] VITALS: BP 120/75
--- NOTE | 2019-01-27 15:10 | NUR ---
RN NOTES PATIENT SKELP PROCESSOR AT THIS TIME FOR HEMODIALYSIS CATHETER PLACEMENT. PATIENT STABLE, V/S TAKEN BP-120/75, P-77, R-18, T-98.2, 02-95 ROOM AIR.
[2019-01-27] MEDS ORDERED: IOHEXOL 240MG/ML 50 ML IV ONE (15:17)
[2019-01-27] MEDS ORDERED: HEPARIN SODIUM, PORCINE 1,000 UNIT/ML VIAL ONE ×3 (15:18→18:19)
[2019-01-27] MEDS ORDERED: LIDOCAINE HCL/PF 1% 30 ML SDV ONE (15:21)
[2019-01-27] MEDS ORDERED: LIDOCAINE HCL/PF 2 % 5ML SDV 5 ML VIAL ONE (15:42)
[2019-01-27] MEDS ORDERED: FENTANYL PF 100MCG/2ML AMPUL ONE (16:49)
[2019-01-27] MEDS ORDERED: CELLULOSE,OXIDIZED 1 EA PACK MC ONE (18:00)
[2019-01-27] MEDS ORDERED: CELLULOSE,OXIDIZED 1 EACH EACH MC ONE (18:12)
[2019-01-27] MEDS ORDERED: BACITRACIN 50000 UNITS/VIAL ONE (18:40)
--- NOTE | 2019-01-27 19:00 | NUR ---
RN NOTES PATIENT STILL IN THE SURGERY. ENDORSED ONCOMING NURSE FOLLOW PLAN OF CARE.
[2019-01-27] MEDS ORDERED: HYDROCODONE/APAP 10/325MG 1 EA TABLET ONE (19:38)
--- NOTE | 2019-01-27 20:10 | NUR ---
assignment changed norm rn to assume care. to assume care. report offered and informed i would available for questions verbalized understanding. patient to return to room. [id number] back from surgery per or nurse roberts. patient recieved procedure for hd cath placement to right groin and av fistula to left arm.
[2019-01-27 20:25] VITALS: BP 93/53
--- NOTE | 2019-01-27 20:25 | NUR ---
S/P SURGERY Patient transferred from recovery unit by bed. Patient is awake, A/O x4. On RA, denies SOB. S/P R Femoral Tunneled Dialysis catheter placement, Left Arm AV Fistula creation, R IJ Tunneled cath removal today by Dr. Gaines. Line ok to use for dialysis as ordered. Will cont to monitor closely. Instruction to use call light for assistance, verbalized understanding. at bedside.
[2019-01-27] MEDS: MIDODRINE HCL (5MG) 5 MG TABLET PO PRN (20:41)
--- NOTE | 2019-01-27 20:41 | NUR ---
LOW BP BP 89/54 patient denies dizziness, PRB Midodrine given. Awaiting dialysis treatment.
[2019-01-27 20:42] VITALS: BP 89/54
--- NOTE | 2019-01-27 20:50 | NUR ---
HD Dialysis treatment at bedside. Dialysis nurse remains at bedside.
[2019-01-27 21:00] VITALS: BP 93/53
[2019-01-27 21:03] VITALS: BP 117/61
--- NOTE | 2019-01-27 21:05 | NUR ---
BP IMPROVED BP 117/61 after PRN Midodrine. Dialysis treatment in progress.
[2019-01-27] MEDS: *INSULIN REGULAR(HUMULIN R)HUM 100 UNIT/ML VIAL SQ PRN (21:52)
[2019-01-27] MEDS ORDERED: SIMVASTATIN 20 MG TABLET PO SCH (22:00)
--- NOTE | 2019-01-28 00:08 | NUR ---
Dialysis treatment done Patient tolerated dialysis treatment, 2100ml fluid output recorded.
[2019-01-28] MEDS: ANCEF 1 GM/50 ML D5W IV SCH ×4 (00:12→06:57)
[2019-01-28 00:19] VITALS: BP 102/62
[2019-01-28] MEDS: HYDROCODONE/APAP 5/325MG 1 EACH TABLET PO PRN (00:23)
[2019-01-28] MEDS: INSULIN GLARGINE, 100 UNIT/ML CARTRIDGE SQ SCH ×2 (00:29→08:29)
[2019-01-28 06:22] LABS: BASOPHILS # (AUTO) 0.1 /CMM (0.0-0.2); BASOPHILS % (AUTO) 0.9 % (0.0-2.0); EOSINOPHILS % (AUTO) 0.4 % (0.0-6.0); HEMATOCRIT 45 % (39-51); HEMOGLOBIN 14.6 g/dL (13.5-17.5); LYMPHOCYTES # (AUTO) 0.7 /CMM (0.8-4.8); LYMPHOCYTES % (AUTO) 9.7 % (20.0-44.0); MEAN CORPUSCULAR HGB CONC 32 g/dl (31.0-36.0); MEAN CORPUSCULAR VOLUME 91 fL (80-96); MONOCYTES % (AUTO) 14.3 % (2.0-12.0); NEUTROPHILS # (AUTO) 5.3 /CMM (1.8-8.9); NEUTROPHILS % (AUTO) 74.7 % (43.0-81.0); PLATELET COUNT (AUTO) 152 /CMM (150-450); RED BLOOD CELL COUNT(AUTO) 4.93 MIL/uL (4.5-6.0); WHITE BLOOD COUNT (AUTO) 7.1 K/uL (4.3-11.0)
--- NOTE | 2019-01-28 06:23 | NUR ---
END OF SHIFT REPORT Patient in bed, stable oxygen saturation on RA. Left upper arm, Right upper chest dressing C/D/I, pain managed with PRN [place]. Had dialysis treatment this shift with 2100ml output, Right femoral cath intact. On IV abx as scheduled with no adverse s/e. Maintained safety, fall precaution. Will endorse to oncoming RN.
[2019-01-28 06:44] LABS: CALCIUM, SERUM 7.5 mg/dL (8.5-10.1); MAGNESIUM 2.3 mg/dL (1.8-2.4); PHOSPHORUS 4.7 mg/dL (2.5-4.9); POTASSIUM 4.8 mmol/L (3.5-5.1)
--- NOTE | 2019-01-28 07:31 | NUR ---
MS/RN OPENING NOTE PATIENT IN BED IN STABLE CONDITION. A/O X 4. NO SIGNS OF ACUTE DISTRESS. NO COMPLAIN OF PAIN OR DISCOMFORT. ALL NEEDS ATTENDED TO AT THIS TIME. CALL LIGHT WITHIN REACH. WILL CONTINUE TO MONITOR TO ENSURE SAFETY.
[2019-01-28 08:00] VITALS: BP 86/54
[2019-01-28] MEDS: CINACALCET HCL 30 MG TABLET PO SCH (08:23)
[2019-01-28] MEDS: DOCUSATE SODIUM 100 MG CAPSULE PO SCH (08:23)
[2019-01-28] MEDS: MIDODRINE HCL (5MG) 5 MG TABLET PO PRN ×2 (08:23→16:43)
[2019-01-28] MEDS: BLOOD SUGAR DIAGNOSTIC 1 EACH STRIP VI SCH ×3 (08:23→16:43)
[2019-01-28] MEDS: BRIMONIDINE TARTRATE OPHT SOLN 5 ML BOTTLE EACHEYE SCH ×3 (08:24→16:44)
[2019-01-28] MEDS: SEVELAMER CARBONATE 800 MG TABLET PO SCH ×3 (08:24→16:43)
[2019-01-28] MEDS: PANTOPRAZOLE 40 MG TABLET.DR PO SCH (08:24)
[2019-01-28] MEDS: TIMOLOL 0.5% SOLN OPHTH 5 ML BOTTLE EACHEYE SCH ×2 (08:24→16:44)
[2019-01-28] MEDS: CADEXOMER IODINE 40 GM TUBE TP SCH (08:25)
[2019-01-28] MEDS: INSULIN REGULAR, HUMAN 100 UNIT/ML 3 ML VIAL SQ PRN ×2 (08:30→12:01)
[2019-01-28] MEDS ORDERED: CEPHALEXIN MONOHYDRATE 500 MG CAPSULE PO SCH (12:00)
[2019-01-28 16:43] VITALS: BP 82/50
[2019-01-28] MEDS ORDERED: CEPH-569 PO (17:01)
--- NOTE | 2019-01-28 17:48 | NUR ---
MS/MOTOR OVERHAULER PATIENT DISCHARGE HOME IN STABLE CONDITION. A/O X 4. NO SIGNS OF ACUTE DISTRESS. NO COMPLAIN OF PAIN OR DISCOMFORT. DISCHARGE EDUCATION AND TEACHINGS PROVIDED, VERBALIZED UNDERSTANDINGS, PRESCRIPTION PROVIDED, NAME BAND AND IV LINE REMOVED. LEFT IN STABLE CONDITION ACCOMPANIED BY VIA PRIVATE CAR,
== END 2019-01-28 18:30 | disposition home or self-care (01) | DRG 314 ==
LOC: ER 14:02 → TELE 17:18 → MED 01-23 14:29
PROVIDERS: ADMIT Internal Medicine; ATTEND Student in an Organized Health Care Education/Training Program
PROC: 05PY33Z Removal of Infusion Device from Upper Vein, Percutaneous Approach (ICD-10-PCS; principal; 2019-01-23)
PROC: B543ZZA Ultrasonography of Right Jugular Veins, Guidance (ICD-10-PCS; 2019-01-23)
PROC: 5A1D70Z Performance of Urinary Filtration, Intermittent, Less than 6 Hours Per Day (ICD-10-PCS; 2019-01-23)
PROC: 05PY33Z Removal of Infusion Device from Upper Vein, Percutaneous Approach (ICD-10-PCS; 2019-01-26)
PROC: 05HM33Z Insertion of Infusion Device into Right Internal Jugular Vein, Percutaneous Approach (ICD-10-PCS; 2019-01-26)
PROC: 0JHD3XZ Insertion of Tunneled Vascular Access Device into Right Upper Arm Subcutaneous Tissue and Fascia, Percutaneous Approach (ICD-10-PCS; 2019-01-26)
PROC: B543ZZA Ultrasonography of Right Jugular Veins, Guidance (ICD-10-PCS; 2019-01-26)
PROC: 0JHL3XZ Insertion of Tunneled Vascular Access Device into Right Upper Leg Subcutaneous Tissue and Fascia, Percutaneous Approach (ICD-10-PCS; 2019-01-27)
PROC: 06HM33Z Insertion of Infusion Device into Right Femoral Vein, Percutaneous Approach (ICD-10-PCS; 2019-01-27)
PROC: B54BZZA Ultrasonography of Right Lower Extremity Veins, Guidance (ICD-10-PCS; 2019-01-27)
DX: T82.41XA Breakdown (mechanical) of vascular dialysis catheter, initial encounter (principal); N18.6 End stage renal disease; E87.1 Hypo-osmolality and hyponatremia; I13.2 Hypertensive heart and chronic kidney disease with heart failure and with stage 5 chronic kidney disease, or end stage renal disease; M86.9 Osteomyelitis, unspecified; N17.9 Acute kidney failure, unspecified; Y92.9 Unspecified place or not applicable; E11.22 Type 2 diabetes mellitus with diabetic chronic kidney disease; E11.621 Type 2 diabetes mellitus with foot ulcer; Z99.2 Dependence on renal dialysis; E11.51 Type 2 diabetes mellitus with diabetic peripheral angiopathy without gangrene; E11.42 Type 2 diabetes mellitus with diabetic polyneuropathy; E78.5 Hyperlipidemia, unspecified; E83.51 Hypocalcemia; E87.5 Hyperkalemia; I50.9 Heart failure, unspecified; I25.2 Old myocardial infarction; I25.10 Atherosclerotic heart disease of native coronary artery without angina pectoris; L97.529 Non-pressure chronic ulcer of other part of left foot with unspecified severity; F41.9 Anxiety disorder, unspecified; Z88.8 Allergy status to other drugs, medicaments and biological substances; Z91.040 Latex allergy status; Z79.51 Long term (current) use of inhaled steroids; Z79.4 Long term (current) use of insulin; Z79.899 Other long term (current) drug therapy; Y71.2 Prosthetic and other implants, materials and accessory cardiovascular devices associated with adverse incidents; Z95.810 Presence of automatic (implantable) cardiac defibrillator; T82.868A Thrombosis due to vascular prosthetic devices, implants and grafts, initial encounter; Y83.2 Surgical operation with anastomosis, bypass or graft as the cause of abnormal reaction of the patient, or of later complication, without mention of misadventure at the time of the procedure; Y92.009 Unspecified place in unspecified non-institutional (private) residence as the place of occurrence of the external cause; M85.9 Disorder of bone density and structure, unspecified
CPT/HCPCS: 36415; 71045-TC; 73630-TC; 73700-TC; 74018; 80048-TC; 80061-TC; 82962-TC; 83735-TC; 84100-TC; 84443-TC; 85025-TC; 85610-TC; 85730-TC; 86850-TC; 87070-TC; 87081-TC; 87186-TC; 88304-TC; 90935-TC; A4216; A4217; C1750; C1757; C1769; C1894; G0378; J0690; J1644; J1815; J2250; J2370; J2405; J2704; J3010; J3370; J3490; J7040; J7050; J7060; J8597; P9047; Q9966; Q9967

== ENCOUNTER 2019-05-23 14:41 | Inpatient (IN) | payer MEDICARE, BC ==
[~2019-05-23] VITALS: Ht 175.3 cm; Wt 97.1 kg
[~2019-05-23 14:41] MED LIST changes: -ALBU6.7H IH; +ALBU6.7H9 IH; +CEPH-569 PO; +DEXT15DR6 EACHEYE; +SIMV-49 PO; -SIMV40TA5 PO
--- NOTE | 2019-05-23 15:26 | NUR ---
C/C "BURNING AT L ARM" x 2WEEKS WORST TODAY.ALSO C/O GEN JOINTS AND BODY PAIN. PT AAOX4, VSS. RR EVEN & UNLABORED. DENIES CP, SOB, DIZZINESS, N/V @ THIS TIME. PT SEEN & EVAL'D BY DR. HARGROVE. WILL CONT TO MONITOR.
[2019-05-23 15:31] LABS: BASOPHILS # (AUTO) 0.1 /CMM (0.0-0.2); MEAN CORPUSCULAR HGB CONC 32 g/dl (31.0-36.0); WHITE BLOOD COUNT (AUTO) 6.5 K/uL (4.3-11.0)
[2019-05-23 15:35] LABS: BASOPHILS % (AUTO) 1.9 % (0.0-2.0); EOSINOPHILS % (AUTO) 2.5 % (0.0-6.0); HEMATOCRIT 56 % (39-51); HEMOGLOBIN 17.9 g/dL (13.5-17.5); LYMPHOCYTES # (AUTO) 1.4 /CMM (0.8-4.8); LYMPHOCYTES % (AUTO) 21.7 % (20.0-44.0); MEAN CORPUSCULAR VOLUME 99 fL (80-96); MONOCYTES # (AUTO) 1.1 /CMM (0.1-1.30); MONOCYTES % (AUTO) 16.9 % (2.0-12.0); NEUTROPHILS # (AUTO) 3.7 /CMM (1.8-8.9); PLATELET COUNT (AUTO) 192 /CMM (150-450); RED BLOOD CELL COUNT(AUTO) 5.63 MIL/uL (4.5-6.0)
[2019-05-23 15:43] LABS: CALCIUM, SERUM 8.9 mg/dL (8.5-10.1); CARBON DIOXIDE 29 mmol/L (21-32); CHLORIDE 91 mmol/L (98-107); GLUCOSE 265 mg/dL (74-106); POTASSIUM 4.7 mmol/L (3.5-5.1); SODIUM SERUM 131 mmol/L (136-145); UREA NITROGEN, BLOOD 33 mg/dL (7-18)
[2019-05-23 15:54] LABS: CREATININE 9.5 mg/dL (0.6-1.3)
[2019-05-23 15:57] LABS: ALANINE AMINOTRANSFERASE 19 U/L (12-78); ALBUMIN 3.5 g/dL (3.4-5.0); ALKALINE PHOSPHATASE 129 U/L (46-116); ASPARTATE AMINOTRANSFERASE 23 U/L (15-37); B-TYPE NATRIURETIC PEPTIDE 799 PG/ML (0-125); BILIRUBIN,DIRECT 0.2 mg/dL (0.0-0.2); BILIRUBIN,TOTAL 0.6 mg/dL (0.2-1.0); TOTAL PROTEIN, SERUM 7.8 g/dL (6.4-8.2)
[2019-05-23 16:13] LABS: LYMPHOCYTES % (MANUAL) 23 % (16-48); MONOCYTES % (MANUAL) 16 % (0-11.0); NEUTROPHILS % (MANUAL) 61 (42-76)
--- NOTE | 2019-05-23 16:14 | NUR ---
EPIC CLAIM AUDITOR PAGED
[2019-05-23] MEDS ORDERED: IV NS 0.9% 500 ML BAG IV ONE (16:30)
[2019-05-23] MEDS ORDERED: VANCOMYCIN 1 GM in IV D5W 250 ML IV ONE (16:30)
[2019-05-23] MEDS ORDERED: PIPERACILLIN /TAZOBACTAM 3.375 G in IV D5W 50 ML IV ONE (16:30)
--- NOTE | 2019-05-23 17:04 | NUR ---
RECIEVED BED 304-1
[2019-05-23 17:06] LABS: PHOSPHORUS 5.9 mg/dL (2.5-4.9)
[2019-05-23 17:08] LABS: C-REACTIVE PROTEIN 0.4 mg/dL (0.0-0.9)
[2019-05-23] MEDS ORDERED: Z GUARD REMEDY 2 OZ OINT TP PRN (17:30)
[2019-05-23] MEDS ORDERED: HYDROCODONE/APAP 5/325MG 1 EACH TABLET PO PRN (17:30)
[2019-05-23] MEDS ORDERED: ONDANSETRON HCL/PF 4 MG/2 ML VIAL IVP PRN (17:30)
[2019-05-23] MEDS ORDERED: ACETAMINOPHEN 325 MG TABLET PO PRN (17:30)
[2019-05-23] MEDS ORDERED: SODIUM POLYSTYRENE SULF. PWD 15 GM UDC PO PRN (17:30)
[2019-05-23] MEDS ORDERED: MIDODRINE HCL (5MG) 5 MG TABLET PO PRN ×2 (18:00→19:00)
[2019-05-23] MEDS ORDERED: CARBOXYMETHYLCELLULOSE SODIUM 0.4 ML DROPERETTE EACHEYE PRN (18:00)
--- NOTE | 2019-05-23 18:50 | NUR ---
AUDITOR INTERNAL NOTES RECEIVED PATIENT FROM ER VIA [facility], PATIENT ALERT, ORIENTED X3 AT BEDSIDE. SPOKE TO EMILIA HAINES REGARDING ADMIT ORDER TO TELE TD STATED PATIENT REFUSED TD ADMISSION REQUESTED TO BE ADMITTED TO 3RD FLOOR. EMILIA HAINES WILL CHANGE ORDERS AND CLEARED PATIENT TO BE ADMITTED TO TELE. PATIENT PLACED ON TELE MONITORING. ORIENTED TO ROOM. CALL LIGHT WITHIN REACH. WILL ENDORSE CARE TO PM SHIFT.
[2019-05-23] MEDS ORDERED: FEE PK DOSING 1 MIN EA MC ONE (19:01)
[2019-05-23] MEDS ORDERED: ALBUTEROL FS 2.5 MG/0.5 ML VIAL.NEB NEB PRN (19:30)
--- NOTE | 2019-05-23 19:30 | NUR ---
RN NOTES: PER ENDORSEMENT PATIENT WAS ADMITTED FROM ER VIA [facility] AT AROUND 1850, A/OX3-4, (ABBI) PRESENT AT BED SIDE,DX:EARLY SEPSIS. HE RECEIVED ,ZOSYN, VANCO AND N/S 500CC FROM ER, SUPPOSE TO BE ADMITTED IN [place] BUT DR. NIETO AGREED TO ADMIT IN MS-3W ON TELE, MONITOR IN PLACE SR RATE-76, PATIENT HAD DIALYSIS TODAY, AMBULATORY.ON ROOM AIR SPO2-94%, NO SOB, NO COMPLAINTS OF PAIN AT THIS TIME. -AGREE FOR SKIN ASSESSMENT ON THE FRONTAL AREA ONLY: 1)LEFT UPPER ARM-AV FISTULA (+) BRUIT AND THRILL 2)MULTIPLE SCAB AND WOUND ON THE RIGHT HAND AND LEFT HAND 3) OLD SURGICAL SITE: ABDOMEN AREA 4)STENT X2 AND DEFIBRILLATOR-RUC 5)IV CANNULA- RIGHT HAND G#20 -HE REFUSED TO ASSESS HIS BLE, HE DO NOT WANT TO REMOVE HIS SOCKS, AND REFUSE TO SHOW HIS BACK.RESPECT PATIENT WISH. -ORIENTED TO UNIT AND STAFF, FALL,SAFETY AND ASPIRATION PRECAUTION OBSERVED, BED LOW AND LOCKED, CALL LIGHT KEPT WITHIN EASY REACH. Addendum: 05/24/19 at 0221 by AIDA JIANG RN ADDED NOTES: FOR DIALYSIS Q SUN-SUN-SUN.
[2019-05-23 20:00] VITALS: BP 74/42
--- NOTE | 2019-05-23 20:09 | NUR ---
RN NOTES: AT 1940 PATIENT WAS P/U BY STAFF ÓSCAR FOR CT UPPER EXTREMITY AND BACK BY 2009.
[2019-05-23] MEDS: BRIMONIDINE TARTRATE OPHT SOLN 5 ML BOTTLE OP SCH (20:22)
[2019-05-23] MEDS: INSULIN LISPRO/ASPART 100 UNIT/ML CARTRIDGE SQ SCH (20:31)
--- NOTE | 2019-05-23 21:22 | NUR ---
RN NOTES: AT 2024 BLOOD SUGAR CHECK 367, HE HAD HIS SNACK AWHILE AGO, HUMALOG 5 UNITS GIVEN ORDERED, WILL CONTINUE TO MONITOR FOR SIGN OF HYPER/HYPOGLYCEMIA.
[2019-05-23] MEDS: INSULIN GLARGINE, 100 UNIT/ML CARTRIDGE SQ SCH (21:52)
[2019-05-23] MEDS: SIMVASTATIN 20 MG TABLET PO SCH (21:53)
--- NOTE | 2019-05-23 21:59 | NUR ---
RN NOTES: AT 2130 BLOOD SUGAR -282, LANTUS GIVEN HE COMPLAINED OF MILD PAIN ON BUE, PREFER TO TAKE TYLENOL ONLY, GIVEN, NON PHARMACOLOGIC INTERVENTION RENDERED.KEPT ON CLOSE WATCH.
[2019-05-24] VITALS: BP 71/42
[2019-05-24 00:05] VITALS: BP 71/42
--- NOTE | 2019-05-24 00:10 | NUR ---
RN NOTES: SLEEPING COMFORTABLY, NO PAIN OR DISCOMFORT , NO COMPLAINTS OF DIZZINESS NOR HEADACHE,HIS BLOOR PRESSURE IS STILL LOW, PATIENT REMAIN STABLE AND ASYMPTOMATIC, WILL CONTINUE TO MONITOR, ON TELE MONITOR SINUS RHYTHM RATE-86.
[2019-05-24] MEDS: PIPERACILLIN /TAZOBACTAM 2.25 G in IV D5W 50 ML IV SCH ×3 (01:08→18:43)
[2019-05-24] MEDS: BRIMONIDINE TARTRATE OPHT SOLN 5 ML BOTTLE OP SCH ×3 (01:33→17:58)
[2019-05-24 04:00] VITALS: BP 76/44
--- NOTE | 2019-05-24 04:14 | NUR ---
RN NOTES: -AROUND 0100 AWAKE REQUESTING FOR PAIN MEDICATION, HE HAS PAIN ON THE LUE,EXPLAINED TO HIM HE IS NOT YET DUE FOR TYLENOL, HE REFUSE FOR NORCO, HE SAID HE WILL WAIT AND TRY TO GO BACK TO SLEEP, OFFERED TO APPLY ICE PACK, HE REFUSED. -KEPT ON CLOSE WATCH AROUND 0230 ABLE TO SLEEP AND REST.
[2019-05-24 04:27] VITALS: BP 76/44
--- NOTE | 2019-05-24 06:04 | NUR ---
RN NOTES: AWAKE AT AROUND 0530, OFFERED IF HE WANT PAIN MEDICATION, HE VERBALIZED HE WAS ABLE TO SLEEP WITH HIS LUE DANGLING ON THE SIDE OF THE BED, HE WAS ABLE TO FALL ASLEEP.LOOKS COMFORTABLE, HE EXPRESS HIS GRATITUDE THAT HE IS MONITORED AT FREQUENT INTERVALS.
--- NOTE | 2019-05-24 06:44 | NUR ---
RN NOTES: KEPT COMFORTABLE IN BED, AWAITING FOR HIS TO COME, OFFERED FOOD HE SAID HE IS NOT HUNGRY, ENDORSED FOR CONTINUITY OF CARE.
[2019-05-24] MEDS ORDERED: PANTOPRAZOLE 40 MG TABLET.DR PO SCH ×2 (07:30)
--- NOTE | 2019-05-24 07:41 | NUR ---
telecommunications field engineer OPENING NOTES Patient remains on room air, no sob noted, remains on SR 706 rate. RAKEL AV Fistula and RH gauge 20 remains patent at this time. Last HD yesterday. Patient denies pain at this time. Bed at the lowest setting, call light within reach, side rails up x2.
[2019-05-24 08:00] VITALS: BP 82/42
[2019-05-24 08:00] LABS: BASOPHILS # (AUTO) 0.1 /CMM (0.0-0.2); HEMATOCRIT 54 % (39-51); HEMOGLOBIN 17.6 g/dL (13.5-17.5); LYMPHOCYTES # (AUTO) 1.2 /CMM (0.8-4.8); LYMPHOCYTES % (AUTO) 20.1 % (20.0-44.0); MEAN CORPUSCULAR HGB CONC 33 g/dl (31.0-36.0); MEAN CORPUSCULAR VOLUME 97 fL (80-96); MONOCYTES % (AUTO) 16.4 % (2.0-12.0); NEUTROPHILS # (AUTO) 3.4 /CMM (1.8-8.9); NEUTROPHILS % (AUTO) 57.5 % (43.0-81.0); PLATELET COUNT (AUTO) 180 /CMM (150-450); WHITE BLOOD COUNT (AUTO) 5.9 K/uL (4.3-11.0)
[2019-05-24] MEDS ORDERED: SEVELAMER CARBONATE 800 MG TABLET PO SCH (08:00)
[2019-05-24 08:12] LABS: CALCIUM, SERUM 8.6 mg/dL (8.5-10.1); MAGNESIUM 2.5 mg/dL (1.8-2.4); PHOSPHORUS 6.6 mg/dL (2.5-4.9); POTASSIUM 5.2 mmol/L (3.5-5.1)
[2019-05-24 08:15] LABS: CREATININE 10.8 mg/dL (0.6-1.3); THYROID STIMULATING HORMONE 1.165 uIU/mL (0.358-3.74)
[2019-05-24] MEDS: SEVELAMER CARBONATE 800 MG TABLET PO SCH ×3 (08:23→18:01)
[2019-05-24] MEDS: INSULIN GLARGINE, 100 UNIT/ML CARTRIDGE SQ SCH ×2 (08:24→21:00)
[2019-05-24] MEDS: INSULIN LISPRO/ASPART 100 UNIT/ML CARTRIDGE SQ SCH ×3 (08:24→17:58)
[2019-05-24] MEDS: TIMOLOL 0.5% SOLN OPHTH 5 ML BOTTLE EACHEYE SCH ×2 (08:30→17:58)
[2019-05-24] MEDS ORDERED: DOCUSATE SODIUM 100 MG CAPSULE PO SCH (09:00)
[2019-05-24] MEDS: LACTOBACILLUS RHAMNOSUS GG 1 EACH CAP.SPRINK PO SCH ×2 (09:00→18:07)
[2019-05-24] MEDS ORDERED: CINACALCET HCL 30 MG TABLET PO SCH (09:00)
[2019-05-24] MEDS ORDERED: MISCELLANEOUS MED 1 EA EA XX ONE (14:30)
[2019-05-24 16:00] VITALS: BP 101/58
--- NOTE | 2019-05-24 18:27 | NUR ---
RN NOTES Patient remains on room air, no sob noted, patient on SR 80's. RAKEL AV fistula, and RH G 20 remains intact. Patient to be DC'D after HD is the plan at this time. Vanco to be given post HD. Patient stated that the pain is under control. Bed at the lowest setting, call light within reach, side rail up x2. Will give report to NOC RN for JONO bedside.
[2019-05-24] MEDS ORDERED: VANCOMYCIN 500 MG in IV D5W 100 ML IV PRN (19:00)
--- NOTE | 2019-05-24 19:00 | NUR ---
PENCIL MAKER NOTES Received patient awake on bed with at bedside. Awaiting for hemodialysis then to be discharged. Patient refused to attached the tele monitor at this time. Explained to patient the importance of using the tele monitor, patient verbalized understanding but insisted to refuse. On fall precautions. Call light within easy reach. Will continue to monitor accordingly.
--- NOTE | 2019-05-24 19:34 | NUR ---
LEARNING DISABILITIES TEACHER NOTES ON DIALYSIS AT THIS TIME. HD RN AT BEDSIDE.
[2019-05-24] MEDS ORDERED: VANCOMYCIN 1 GM VIAL ONE (20:26)
--- NOTE | 2019-05-24 21:00 | NUR ---
MATCHER OFFBEARER NOTES Offered due meds to patient and encouraged patient to check blood sugar. Patient insisted to refuse despite education provided.
[2019-05-24] MEDS: SIMVASTATIN 20 MG TABLET PO SCH (22:00)
--- NOTE | 2019-05-24 22:56 | NUR ---
SERVICE OBSERVER CHIEF NOTES Dialysis done. Discharge patient per order. IV cannula removed, intact and complete, no bleeding noted. Discharge instructions given to patient and , both verbalized understanding. Put patient on wheelchair, transported to patient's vehicle by the PROJECT CONTROL ANALYST. All belongings accounted for. Patient left the facility at this time.
== END 2019-05-24 22:50 | disposition home or self-care (01) | DRG 299 ==
LOC: ER 14:48 → TELE 17:30
PROVIDERS: ADMIT Registered Nurse; ATTEND Registered Nurse
PROC: 5A1D70Z Performance of Urinary Filtration, Intermittent, Less than 6 Hours Per Day (ICD-10-PCS; principal; 2019-05-24)
DX: I70.299 Other atherosclerosis of native arteries of extremities, unspecified extremity (principal); N18.6 End stage renal disease; E11.52 Type 2 diabetes mellitus with diabetic peripheral angiopathy with gangrene; I96 Gangrene, not elsewhere classified; E87.1 Hypo-osmolality and hyponatremia; E87.2 Acidosis; L03.116 Cellulitis of left lower limb; N25.81 Secondary hyperparathyroidism of renal origin; I12.0 Hypertensive chronic kidney disease with stage 5 chronic kidney disease or end stage renal disease; E83.59 Other disorders of calcium metabolism; T50.996A Underdosing of other drugs, medicaments and biological substances, initial encounter; Z91.128 Patient's intentional underdosing of medication regimen for other reason; Y92.019 Unspecified place in single-family (private) house as the place of occurrence of the external cause; E11.65 Type 2 diabetes mellitus with hyperglycemia; Z88.8 Allergy status to other drugs, medicaments and biological substances; Z79.4 Long term (current) use of insulin; Z79.51 Long term (current) use of inhaled steroids; Z79.899 Other long term (current) drug therapy; I25.10 Atherosclerotic heart disease of native coronary artery without angina pectoris; E86.0 Dehydration; E83.39 Other disorders of phosphorus metabolism; E78.5 Hyperlipidemia, unspecified; E66.9 Obesity, unspecified; E11.22 Type 2 diabetes mellitus with diabetic chronic kidney disease; D64.9 Anemia, unspecified; F41.9 Anxiety disorder, unspecified; Z91.15 Patient's noncompliance with renal dialysis; Z99.2 Dependence on renal dialysis; Z91.19 Patient's noncompliance with other medical treatment and regimen; I70.0 Atherosclerosis of aorta; I95.89 Other hypotension
CPT/HCPCS: 36415; 71045-TC; 73090-TC; 73120-TC; 73200-TC; 80048-TC; 80061-TC; 80076-TC; 80202-TC; 82962-TC; 83605-TC; 83735-TC; 83880; 84100-TC; 84443-TC; 84484-TC; 85025-TC; 85652-TC; 85730-TC; 86140-TC; 87040-TC; 87081-TC; 90935-TC; 93307-TC; A4216; G0378; J1815; J2543; J3370; J7040; J7060

== ENCOUNTER 2019-05-26 13:20 | Outpatient (CLI) | payer MEDICARE, BC ==
[~2019-05-26 13:20] MED LIST changes: -ALPR2TAB7 PO; -CEPH-569 PO; -DOXY100T2 PO
== END 2019-05-26 23:59 | disposition home or self-care (01) ==
LOC: WOU 13:20
PROVIDERS: ATTEND Surgery
DX: I96 Gangrene, not elsewhere classified (principal); E83.59 Other disorders of calcium metabolism; E11.22 Type 2 diabetes mellitus with diabetic chronic kidney disease; E11.52 Type 2 diabetes mellitus with diabetic peripheral angiopathy with gangrene; I13.2 Hypertensive heart and chronic kidney disease with heart failure and with stage 5 chronic kidney disease, or end stage renal disease; N18.6 End stage renal disease; I50.9 Heart failure, unspecified; Z99.2 Dependence on renal dialysis; Z87.891 Personal history of nicotine dependence; Z95.810 Presence of automatic (implantable) cardiac defibrillator
CPT/HCPCS: G0463

== ENCOUNTER 2019-06-02 08:30 | Outpatient (CLI) | payer MEDICARE, BC ==
[~2019-06-02 08:30] MED LIST changes: +ALBU6.7H IH; -ALBU6.7H9 IH; -SIMV-49 PO; +SIMV40TA5 PO
== END 2019-06-02 23:59 | disposition home or self-care (01) ==
LOC: WOU 08:30
PROVIDERS: ATTEND Podiatrist Foot & Ankle Surgery
DX: E11.52 Type 2 diabetes mellitus with diabetic peripheral angiopathy with gangrene (principal); E11.22 Type 2 diabetes mellitus with diabetic chronic kidney disease; I96 Gangrene, not elsewhere classified; I13.2 Hypertensive heart and chronic kidney disease with heart failure and with stage 5 chronic kidney disease, or end stage renal disease; N18.6 End stage renal disease; I50.9 Heart failure, unspecified; Z99.2 Dependence on renal dialysis; E83.59 Other disorders of calcium metabolism; Z87.891 Personal history of nicotine dependence; Z95.810 Presence of automatic (implantable) cardiac defibrillator
CPT/HCPCS: G0463

== ENCOUNTER 2019-09-29 08:20 | Outpatient (CLI) | payer MEDICARE, BC ==
[~2019-09-29 08:20] MED LIST changes: -ALBU6.7H IH; +ALBU6.7H9 IH; +SIMV-49 PO; -SIMV40TA5 PO
== END 2019-09-29 23:59 | disposition home or self-care (01) ==
LOC: WOU 08:20
PROVIDERS: ATTEND Surgery
DX: E11.52 Type 2 diabetes mellitus with diabetic peripheral angiopathy with gangrene (principal); E11.22 Type 2 diabetes mellitus with diabetic chronic kidney disease; I96 Gangrene, not elsewhere classified; I13.2 Hypertensive heart and chronic kidney disease with heart failure and with stage 5 chronic kidney disease, or end stage renal disease; I50.9 Heart failure, unspecified; N18.6 End stage renal disease; Z99.2 Dependence on renal dialysis; Z87.891 Personal history of nicotine dependence; Z79.4 Long term (current) use of insulin; E83.59 Other disorders of calcium metabolism; M79.642 Pain in left hand
CPT/HCPCS: G0463

== ENCOUNTER 2020-01-20 12:39 | Outpatient (CLI) | payer MEDICARE, BC ==
[2020-01-20 14:13] LABS: BASOPHILS % (AUTO) 0.4 % (0.0-2.0); EOSINOPHILS % (AUTO) 4.2 % (0.0-6.0); HEMATOCRIT 43 % (39-51); HEMOGLOBIN 13.4 g/dL (13.5-17.5); LYMPHOCYTES # (AUTO) 1.3 /CMM (0.8-4.8); LYMPHOCYTES % (AUTO) 15.1 % (20.0-44.0); MEAN CORPUSCULAR HGB CONC 31 g/dl (31.0-36.0); MEAN CORPUSCULAR VOLUME 89 fL (80-96); MONOCYTES # (AUTO) 1.2 /CMM (0.1-1.30); MONOCYTES % (AUTO) 14.3 % (2.0-12.0); NEUTROPHILS # (AUTO) 5.6 /CMM (1.8-8.9); PLATELET COUNT (AUTO) 283 /CMM (150-450); RED BLOOD CELL COUNT(AUTO) 4.86 MIL/uL (4.5-6.0); WHITE BLOOD COUNT (AUTO) 8.5 K/uL (4.3-11.0)
[2020-01-20 14:25] LABS: C-REACTIVE PROTEIN 1.1 mg/dL (0.0-0.9); PREALBUMIN 35.9 MG/DL (18.0-35.7)
[2020-01-20 14:28] LABS: ALBUMIN 3.7 g/dL (3.4-5.0); BILIRUBIN,TOTAL 0.4 mg/dL (0.2-1.0); CALCIUM, SERUM 8.5 mg/dL (8.5-10.1); TOTAL PROTEIN, SERUM 7.8 g/dL (6.4-8.2)
[2020-01-20 14:57] LABS: CREATININE 12.7 mg/dL (0.6-1.3)
[2020-01-20 14:58] LABS: POTASSIUM 7.3 mmol/L (3.5-5.1)
== END 2020-01-20 23:59 | disposition home or self-care (01) ==
LOC: WOU 12:39
PROVIDERS: ATTEND Podiatrist Foot & Ankle Surgery
DX: E11.621 Type 2 diabetes mellitus with foot ulcer (principal); L97.522 Non-pressure chronic ulcer of other part of left foot with fat layer exposed; E11.42 Type 2 diabetes mellitus with diabetic polyneuropathy; E11.51 Type 2 diabetes mellitus with diabetic peripheral angiopathy without gangrene; E11.69 Type 2 diabetes mellitus with other specified complication; M86.172 Other acute osteomyelitis, left ankle and foot; E11.22 Type 2 diabetes mellitus with diabetic chronic kidney disease; I13.2 Hypertensive heart and chronic kidney disease with heart failure and with stage 5 chronic kidney disease, or end stage renal disease; N18.6 End stage renal disease; I50.9 Heart failure, unspecified; Z99.2 Dependence on renal dialysis; Z87.891 Personal history of nicotine dependence; Z79.4 Long term (current) use of insulin; Z95.0 Presence of cardiac pacemaker
CPT/HCPCS: 11043; 36415; 73630-TC; 80053-TC; 84134-TC; 85025-TC; 85652-TC; 86140-TC; 87070-TC; 87075-TC; 87186-TC

== ENCOUNTER 2020-01-21 09:02 | Outpatient (CLI) | payer MEDICARE, BC | END 2020-01-21 23:59 | disposition home or self-care (01) | LOC: CARD 09:02 | PROVIDERS: ATTEND Podiatrist Foot & Ankle Surgery | DX: I82.432 Acute embolism and thrombosis of left popliteal vein (principal); I73.9 Peripheral vascular disease, unspecified | CPT/HCPCS: 93971-TC ==

== ENCOUNTER 2020-01-26 08:46 | Outpatient (CLI) | payer MEDICARE, BC | END 2020-01-26 23:59 | disposition home or self-care (01) | LOC: CT 08:46 | PROVIDERS: ATTEND Podiatrist Foot & Ankle Surgery | DX: M19.072 Primary osteoarthritis, left ankle and foot (principal); M85.872 Other specified disorders of bone density and structure, left ankle and foot; I70.202 Unspecified atherosclerosis of native arteries of extremities, left leg; M62.50 Muscle wasting and atrophy, not elsewhere classified, unspecified site; M86.8X7 Other osteomyelitis, ankle and foot | CPT/HCPCS: 73700-TC ==

== ENCOUNTER 2020-01-30 13:20 | Outpatient (CLI) | payer MEDICARE, BC | END 2020-01-30 23:59 | disposition home or self-care (01) | LOC: WOU 13:20 | PROVIDERS: ATTEND Podiatrist Foot & Ankle Surgery | DX: E11.621 Type 2 diabetes mellitus with foot ulcer (principal); L97.523 Non-pressure chronic ulcer of other part of left foot with necrosis of muscle; E11.42 Type 2 diabetes mellitus with diabetic polyneuropathy; L03.116 Cellulitis of left lower limb; I82.432 Acute embolism and thrombosis of left popliteal vein; E11.69 Type 2 diabetes mellitus with other specified complication; M86.172 Other acute osteomyelitis, left ankle and foot; E11.22 Type 2 diabetes mellitus with diabetic chronic kidney disease; N18.6 End stage renal disease; Z99.2 Dependence on renal dialysis; Z95.0 Presence of cardiac pacemaker; Z79.4 Long term (current) use of insulin; Z11.59 Encounter for screening for other viral diseases | CPT/HCPCS: 11043; C9803; U0003 ==

== ENCOUNTER 2020-02-04 08:09 | Inpatient (IN) | payer MEDICARE, BC ==
[~2020-02-04] VITALS: Ht 175.3 cm; Wt 100.7 kg
--- NOTE | 2020-02-04 11:45 | NUR ---
MS SPORTS ACTIVITIES FOUL JUDGE NOTES Received Patient via wheelchair from [facility] at this time. Patient in stable condition. A/O x 4. VS stable with no acute distress. Breathing even and unlabored on room air with no respiratory distress. Patient stated tolerable pain on Left Foot. Will continue to monitor and intervene as ordered. Skin assessment pictures taken and placed in chart. Safety precautions in place. Bed locked and set to lowest position with side rails x 2 up. All needs rendered at this time. Call light within reach. Will continue to monitor.
[2020-02-04] MEDS ORDERED: VIT1TABL46 MT (11:50)
[2020-02-04] MEDS ORDERED: HYDROCODONE/APAP 5/325MG 1 EACH TABLET PO PRN ×2 (13:00→20:00)
[2020-02-04] MEDS ORDERED: ACETAMINOPHEN 325 MG TABLET PO PRN (13:00)
[2020-02-04] MEDS ORDERED: Z GUARD REMEDY 2 OZ OINT TP PRN (13:00)
[2020-02-04] MEDS ORDERED: ONDANSETRON HCL/PF 4 MG/2 ML VIAL IVP PRN (13:00)
[2020-02-04 14:02] VITALS: BP 86/51
[2020-02-04] MEDS ORDERED: FOLI0.8T23 PO (14:34)
[2020-02-04] MEDS ORDERED: BENZ-13 PO (14:34)
[2020-02-04] MEDS ORDERED: HYDR-4384 PO (14:34)
[2020-02-04 15:07] LABS: BASOPHILS # (AUTO) 0.1 /CMM (0.0-0.2); BASOPHILS % (AUTO) 1.1 % (0.0-2.0); HEMATOCRIT 41 % (39-51); HEMOGLOBIN 12.4 g/dL (13.5-17.5); LYMPHOCYTES % (AUTO) 8.2 % (20.0-44.0); MEAN CORPUSCULAR HGB CONC 30 g/dl (31.0-36.0); MEAN CORPUSCULAR VOLUME 86 fL (80-96); MONOCYTES # (AUTO) 1.5 /CMM (0.1-1.30); MONOCYTES % (AUTO) 12.6 % (2.0-12.0); NEUTROPHILS # (AUTO) 9.2 /CMM (1.8-8.9); NEUTROPHILS % (AUTO) 77.1 % (43.0-81.0); PLATELET COUNT (AUTO) 311 /CMM (150-450); WHITE BLOOD COUNT (AUTO) 11.9 K/uL (4.3-11.0)
[2020-02-04 15:39] LABS: BILIRUBIN,TOTAL 0.3 mg/dL (0.2-1.0); MAGNESIUM 2.5 mg/dL (1.8-2.4); PHOSPHORUS 2.9 mg/dL (2.5-4.9); POTASSIUM 4.6 mmol/L (3.5-5.1); TOTAL PROTEIN, SERUM 7.8 g/dL (6.4-8.2)
[2020-02-04 15:44] LABS: CREATININE 9.2 mg/dL (0.6-1.3)
[2020-02-04 16:02] LABS: THYROID STIMULATING HORMONE 1.36 uIU/mL (0.358-3.74)
[2020-02-04 17:56] VITALS: BP 102/71
--- NOTE | 2020-02-04 18:53 | NUR ---
MS RN CLOSING NOTES Patient awake and resting in bed. A/O x 4. VS stable with no acute distress. Breathing even and unlabored on room air with no respiratory distress. Patient stated tolerable pain on Left Foot, refused pain medication at this time. Will endorse to oncoming shift. 20g PIV on RFA clean, intact, patent and flushing well. Safety precautions in place. Bed locked and set to lowest position with side rails x 2 up. All needs rendered at this time. Call light within reach. Will endorse plan of care to oncoming shift.
[2020-02-04] MEDS ORDERED: FEE PK DOSING 1 MIN EA MC ONE (19:40)
[2020-02-04 20:00] VITALS: BP 97/63
[2020-02-04] MEDS ORDERED: SODIUM POLYSTYRENE SULF. PWD 15 GM UDC PO PRN (20:00)
[2020-02-04] MEDS ORDERED: ALBUTEROL 17GM INHALER IH PRN (20:00)
[2020-02-04] MEDS ORDERED: POLYVINYL ALCOHOL 15 ML BOTTLE EACHEYE PRN (20:00)
[2020-02-04] MEDS ORDERED: DEXTROSE 50%-WATER 50 ML DISP.SYRIN IV PRN (20:30)
[2020-02-04] MEDS: LEVOFLOXACIN (250MG) 250 MG TABLET PO SCH (20:50)
[2020-02-04] MEDS ORDERED: VANCOMYCIN 1.25 GM in IV D5W 250 ML IV ONE (21:00)
[2020-02-04] MEDS ORDERED: GENTAMICIN 120 MG in IV D5W 100 ML IV ONE (21:00)
[2020-02-04] MEDS: BLOOD SUGAR DIAGNOSTIC 1 EACH STRIP IN SCH (21:15)
[2020-02-04] MEDS: SIMVASTATIN 20 MG TABLET PO SCH (21:16)
[2020-02-04] MEDS: *INSULIN REGULAR(HUMULIN R)HUM 100 UNIT/ML VIAL SQ PRN (21:37)
[2020-02-04] MEDS: INSULIN GLARGINE, 100 UNIT/ML CARTRIDGE SQ SCH (21:38)
--- NOTE | 2020-02-05 06:32 | NUR ---
MS RN NOTES AWAKE & RESPONSIVE. NOT IN ANY DISTRESS. NO SOB NOTED. DENIES ANY PAIN OR DISCOMFORT AT THIS TIME. WITH IV-HL PATENT & INTACT. MONITORED ACCORDINGLY. CALL LIGHT WITHIN REACH. BED IN LOWEST POSITION. SR UP X 2 FOR SAFETY. WILL ENDORSE TO NEXT SHIFT.
[2020-02-05] MEDS: BLOOD SUGAR DIAGNOSTIC 1 EACH STRIP IN SCH ×4 (07:36→20:48)
[2020-02-05] MEDS: SEVELAMER CARBONATE 800 MG TABLET PO SCH ×3 (07:57→18:12)
[2020-02-05] MEDS: PANTOPRAZOLE 40 MG TABLET.DR PO SCH (07:57)
--- NOTE | 2020-02-05 08:00 | NUR ---
MS RN OPENING NOTES Received Patient awake and resting in bed. A/O x 4. VS stable with no acute distress. Breathing even and unlabored on room air with no respiratory distress. Patient stated tolerable pain on Left Foot, refused pain medication at this time. Will continue to monitor and intervene as ordered. 20g PIV on RFA clean, intact, patent and flushing well. Safety precautions in place. Bed locked and set to lowest position with side rails x 2 up. All needs rendered at this time. Call light within reach. Will continue to monitor.
[2020-02-05] MEDS: INSULIN LISPRO/ASPART 100 UNIT/ML CARTRIDGE SQ SCH ×3 (08:11→18:00)
[2020-02-05] MEDS: INSULIN GLARGINE, 100 UNIT/ML CARTRIDGE SQ SCH ×2 (08:13→20:48)
[2020-02-05] MEDS: DOCUSATE SODIUM 100 MG CAPSULE PO SCH (08:16)
[2020-02-05] MEDS: MIDODRINE HCL (5MG) 5 MG TABLET PO SCH ×3 (08:16→16:56)
[2020-02-05] MEDS: BRIMONIDINE TARTRATE OPHT SOLN 5 ML BOTTLE EACHEYE SCH ×3 (08:16→18:12)
[2020-02-05] MEDS: VIT B CMPLX 3/FA/VIT C/BIOTIN 1 TAB TABLET PO SCH (08:16)
[2020-02-05] MEDS: BENZONATATE 100 MG CAPSULE PO SCH (08:16)
[2020-02-05] MEDS: TIMOLOL 0.5% SOLN OPHTH 5 ML BOTTLE EACHEYE SCH ×2 (08:16→18:12)
[2020-02-05 08:18] LABS: BASOPHILS # (AUTO) 0.2 /CMM (0.0-0.2); BASOPHILS % (AUTO) 1.2 % (0.0-2.0); EOSINOPHILS % (AUTO) 1.5 % (0.0-6.0); HEMATOCRIT 41 % (39-51); HEMOGLOBIN 12.3 g/dL (13.5-17.5); LYMPHOCYTES # (AUTO) 1.1 /CMM (0.8-4.8); LYMPHOCYTES % (AUTO) 7.4 % (20.0-44.0); MEAN CORPUSCULAR HGB CONC 30 g/dl (31.0-36.0); MEAN CORPUSCULAR VOLUME 84 fL (80-96); MONOCYTES # (AUTO) 1.7 /CMM (0.1-1.30); MONOCYTES % (AUTO) 11.9 % (2.0-12.0); NEUTROPHILS # (AUTO) 11.4 /CMM (1.8-8.9); PLATELET COUNT (AUTO) 373 /CMM (150-450); RED BLOOD CELL COUNT(AUTO) 4.82 MIL/uL (4.5-6.0); WHITE BLOOD COUNT (AUTO) 14.6 K/uL (4.3-11.0)
[2020-02-05 08:55] LABS: CALCIUM, SERUM 7.8 mg/dL (8.5-10.1); MAGNESIUM 2.6 mg/dL (1.8-2.4); POTASSIUM 5.2 mmol/L (3.5-5.1)
[2020-02-05 08:59] LABS: CREATININE 11.2 mg/dL (0.6-1.3)
[2020-02-05] MEDS ORDERED: Medication Not On Formulary EA (Folic Acid/Vitamin B Comp W-C (Rena-Vite Tablet) 0.8 MG) PO SCH (09:00)
[2020-02-05] MEDS ORDERED: GENTAMICIN 80 MG in IV D5W 50 ML IV PRN (09:00)
[2020-02-05] MEDS ORDERED: VANCOMYCIN 500 MG in IV D5W 100 ML IV SCH (09:00)
[2020-02-05 16:46] VITALS: BP 121/58
[2020-02-05] MEDS: APIXABAN 5 MG TABLET PO SCH (16:56)
--- NOTE | 2020-02-05 19:00 | NUR ---
MS RN NOTES Patient stated mild to moderate pain on Left Foot. Offered pain medications. Patient refused. Provided comfort measures. Patient in stable condition. Will endorse to oncoming shift.
[2020-02-05 20:00] VITALS: BP 88/47
--- NOTE | 2020-02-05 20:10 | NUR ---
LINUX SOLARIS ADMINISTRATOR: RECEIVED REPORT FORM CHARMAINE JACKSON. PT IN BED, AWAKE, A/O X4, ON RA RESPIRATIOSN EVENA DN UNLABORED. IV ACCESS PATENT AND FLUSHING WELL, ON HL. RIGHT CW HD CATH IN PLACED, DRESSING C/D/I. PT SEEN BY DR PERRY AT 1906, WITH ORDERS FOR DEBRIDEMENT OF LEFT FOOT WOUND TOMORROW AT 1100AM, DRESSING CHANGED PROVIDED BY AT 1930. ALSO PT SEEN BY DR KAMARA AT 1940, WITH ORDERS FOR HEMODIALYSIS TOMORROW. DISCUSSED PLAN OF CARE TO PT, AND PT AGREE TO HAVE THE PROCEDURE DONE TOMORROW, EXPLAINED RISK AND BENEFITS TO PT. INFORMED PT WE WILL PREPARE THE CONSENT FOR THE PROCEDURE AND ANESTHESIA, INCLUDING BLOOD CONSENT, PER PT HE IS WILLING TO SIGN FOR THE PROCEDURE CONSENT AND ANESTHESIA BUT NOT FOR BLOOD, STATED HE'S NEVER WILLING TO RECEIVE ANY BLOOD AT ALL. MADE PT AWARE THAT HE WILL BE NPO P MN. PT AGREE. SAFETY PRECAUTIONS FOR FALL INITIATED, CALL LIGHT IN REACH, WILL CONTINUE MONITORING PT.
[2020-02-05 20:18] VITALS: BP 88/47
[2020-02-05 20:39] VITALS: BP 91/43
[2020-02-05] MEDS: SIMVASTATIN 20 MG TABLET PO SCH (20:45)
[2020-02-05] MEDS: *INSULIN REGULAR(HUMULIN R)HUM 100 UNIT/ML VIAL SQ PRN (20:49)
--- NOTE | 2020-02-05 20:50 | NUR ---
non admin lantus: pt insisted to take his zocor at this time, stated yael's takuing it at home by 0900pm, also wants to have his blood sugar check at this time as it was 111 earlier. fingerstick blood glucose check performed result is 181, pt refused to received lantus and regular insulin coverage, stated he doesnt need it for tonight as he will be npo p mn for procedure in am. education provided to pt regarding medication compliance.
--- NOTE | 2020-02-05 21:30 | NUR ---
rn notes: received call from pt's , omero, provided with update and plan of care to pt, all questions answered based on recent lab imaging and poc of md.
--- NOTE | 2020-02-05 21:40 | NUR ---
RN NOTES: ALL SURGERY PACKET CONSENT NOW PRINTED, WENT TO PT ROOM TO GET CONSENT HOWEVER PT NOTED TO BE SLEEPING, PER ABBI DO NOT WAKE PT UP WHEN HE'S ASLEEP. WILL RECHECK/DO ANOTHER ROUNDS IN AN HOUR, AND WILL HAVE PT SIGN THE CONSENT.
--- NOTE | 2020-02-05 21:51 | NUR ---
RN NOTES: PT HAD SARSCOV2 DONE ON JANUARY 30, 2020 [facility], SINCE PT GOING FOR OR DEBRIDEMENT TOMORROW, NOTIFIED EPIC MD ON ALL DR DA SILVA , IF NEW COVID SWAB NEEDS TO BE PERFORMED, PER DR DA SILVA, NO NEED TO RE-SWAB PATIENT. ORDERS READ BACK VERIFIED AND CARRIED OUT.
--- NOTE | 2020-02-06 01:47 | NUR ---
RN NOTES: PT AWAKE AT THIS TIME, INFORMED ABOUT CONSENT FOR THE PROCEDURE, PT STATED "I DON'T WANT TO SIGN IT RIGHT NOW, I CAN SIGN IT LATER, I DON'T WANT TO TAKE CARE OF IT NOW". INFORMED PT THAT WE NEED TO HAVE CONSENT READY BEFORE PROCEDURE. BUT STILL PT INSIST, NOT TO SIGN AT THIS TIME.
--- NOTE | 2020-02-06 05:16 | NUR ---
PT DOES NOT WANT TO BE WOKEN UP FOR EKG. RN KRUNAL AWARE. WILL ENDORSE TO MORNING SHIFT.
[2020-02-06 06:40] VITALS: BP 97/49
--- NOTE | 2020-02-06 06:40 | NUR ---
rn notes/consent: pt finally agree to signed consent for procedure and anesthesia. pt called to ask about blood transfusion consent, per okay to agree for transfusion if needed, in case of emergency. pt now decided to agree. contacted lab for stat type and screen, pt requested for alin cathode builder. notified cem from lab
[2020-02-06] MEDS: BLOOD SUGAR DIAGNOSTIC 1 EACH STRIP IN SCH ×4 (06:49→21:38)
[2020-02-06] MEDS: INSULIN REGULAR, HUMAN 100 UNIT/ML 3 ML VIAL SQ PRN (06:49)
--- NOTE | 2020-02-06 06:50 | NUR ---
accu check 142: fingerstick blood glucose check performed result is 142, no insulin coverage given as pt npo for surgery at 1130am.
--- NOTE | 2020-02-06 06:56 | NUR ---
rn notes: contacted lead rt for ekg order pre-op.
[2020-02-06 06:59] LABS: BASOPHILS # (AUTO) 0.2 /CMM (0.0-0.2); BASOPHILS % (AUTO) 1.2 % (0.0-2.0); EOSINOPHILS % (AUTO) 2.1 % (0.0-6.0); HEMATOCRIT 40 % (39-51); HEMOGLOBIN 12.2 g/dL (13.5-17.5); LYMPHOCYTES # (AUTO) 1.1 /CMM (0.8-4.8); LYMPHOCYTES % (AUTO) 8.8 % (20.0-44.0); MEAN CORPUSCULAR HGB CONC 31 g/dl (31.0-36.0); MEAN CORPUSCULAR VOLUME 84 fL (80-96); MONOCYTES # (AUTO) 1.5 /CMM (0.1-1.30); MONOCYTES % (AUTO) 11.5 % (2.0-12.0); NEUTROPHILS # (AUTO) 9.7 /CMM (1.8-8.9); NEUTROPHILS % (AUTO) 76.4 % (43.0-81.0); PLATELET COUNT (AUTO) 363 /CMM (150-450); RED BLOOD CELL COUNT(AUTO) 4.73 MIL/uL (4.5-6.0); WHITE BLOOD COUNT (AUTO) 12.7 K/uL (4.3-11.0)
--- NOTE | 2020-02-06 07:07 | NUR ---
END OF SHIFT REPORT: PT REMAINS A/O X4, ON RA, VS TAKEN AT 0630AM PER PT REQUEST. PT IS VERY PARTICULAR WITH EVERYTHING, FROM TIME HE WILL SLEEP, HE DOESNT WANT TO BE WOKEN UP, AND WHEN HE'S ASLEEP HE DOESN'T WANT TO RECEIVE ANY PHONE CALL. PT ABLE TO SLEEP FOR APPROXIMATELY 6HRS. PT MOTIVATED TO SELF CARE AND DID SPONGE BATH. IV ACCESS REMAINS PATENT AND FLUSHING WELL, ON HL, NO S/S OF IV INFILTRATION NOTED. PT REMAINS NPO. PLAN OF CARE: FOR LEFT FOOT DEBRIDEMENT WITH DR PERRY AT 1130AM. HEMODIALYSIS ORDERED PER NEPHRO. VS REMAINS STABLE, NEEDS ATTENDED. SAFETY PRECAUTIONS FOR FALL REMAINS ENGAGED, CALL LIGHT IN REACH, WILL ENDORSE TO RENETTA MONTANO FOR CONTINUITY OF CARE.
[2020-02-06 07:21] LABS: CALCIUM, SERUM 8.1 mg/dL (8.5-10.1); PHOSPHORUS 3.6 mg/dL (2.5-4.9); POTASSIUM 4.6 mmol/L (3.5-5.1)
[2020-02-06 07:26] LABS: CREATININE 13.2 mg/dL (0.6-1.3)
[2020-02-06] MEDS: PANTOPRAZOLE 40 MG TABLET.DR PO SCH (07:30)
[2020-02-06 08:00] VITALS: BP 125/68
[2020-02-06] MEDS: INSULIN LISPRO/ASPART 100 UNIT/ML CARTRIDGE SQ SCH ×3 (08:00→18:00)
[2020-02-06] MEDS: SEVELAMER CARBONATE 800 MG TABLET PO SCH ×3 (08:00→18:20)
[2020-02-06] MEDS: INSULIN GLARGINE, 100 UNIT/ML CARTRIDGE SQ SCH ×2 (08:25→21:34)
[2020-02-06] MEDS: TIMOLOL 0.5% SOLN OPHTH 5 ML BOTTLE EACHEYE SCH ×2 (08:25→18:20)
[2020-02-06] MEDS: DOCUSATE SODIUM 100 MG CAPSULE PO SCH (08:25)
[2020-02-06] MEDS: VIT B CMPLX 3/FA/VIT C/BIOTIN 1 TAB TABLET PO SCH (08:25)
[2020-02-06] MEDS: BRIMONIDINE TARTRATE OPHT SOLN 5 ML BOTTLE EACHEYE SCH ×3 (08:25→18:20)
[2020-02-06] MEDS: MIDODRINE HCL (5MG) 5 MG TABLET PO SCH ×3 (08:25→17:00)
[2020-02-06] MEDS: APIXABAN 5 MG TABLET PO SCH ×2 (08:25→18:22)
[2020-02-06] MEDS: BENZONATATE 100 MG CAPSULE PO SCH (08:25)
[2020-02-06] MEDS ORDERED: FENTANYL PF 250MCG/5ML AMPUL ONE (11:05)
[2020-02-06] MEDS ORDERED: FAMOTIDINE/PF INJ 20 MG/2 ML VIAL IV ONE (11:05)
[2020-02-06] MEDS ORDERED: BUPIVACAINE 0.5 % PF 150 MG/30 ML VIAL ONE (11:21)
[2020-02-06] MEDS ORDERED: BACITRACIN 50000 UNITS/VIAL ONE (11:22)
[2020-02-06] MEDS ORDERED: VANCOMYCIN 1 GM VIAL ONE ×2 (11:23→12:30)
[2020-02-06] MEDS ORDERED: GENTAMICIN 80 MG/2 ML VIAL ONE (11:25)
[2020-02-06] MEDS ORDERED: LIDOCAINE HCL/MPF 1% 30 ML VIAL IJ ONE (11:29)
[2020-02-06] MEDS ORDERED: HEPARIN SODIUM, PORCINE 5000 UNITS/1 ML VIAL IVF ONE (15:30)
--- NOTE | 2020-02-06 15:48 | NUR ---
MS JACKSON NOTES Per Patients request, clarified with jeremy Holder MD to give Heparin with HD, to be given by Samanta Quiroz RN. Addendum: 02/06/20 at 1717 by CHARMAINE GAR RN DISREGARD ABOVE NOTE PATIENT UNDERGOING DIALYSIS AT THIS TIME. PER PATIENTS REQUEST, CLARIFIED WITH JEREMY HOLDER MD TO GIVE HEPARIN 1000 UNITS WITH HD TO BE GIVEN BY DIALYSIS NURSE SAMANTA JACKSON
[2020-02-06 16:00] VITALS: BP_SYST 130; BP_SYST 143; BP_DIAS 68; BP_DIAS 75
--- NOTE | 2020-02-06 18:52 | NUR ---
MS RN CLOSING NOTES Patient awake and resting in bed. A/O x 4. VS stable with no acute distress. Breathing even and unlabored on room air with no respiratory distress. Patient stated tolerable pain on Left Foot, refused pain medication at this time. Left foot wound dressing C/D/I. Will endorse to oncoming shift. 20g PIV on RFA clean, intact, patent and flushing well. Safety precautions in place. Bed locked and set to lowest position with side rails x 2 up. All needs rendered at this time. Call light within reach. Will endorse plan of care to oncoming shift.
--- NOTE | 2020-02-06 19:55 | NUR ---
RN NOTES RECEIVED PATIENT AWAKE IN BED, CALM RESTING COMFORTABLY, NO SIGNS OF ACUTE CARDIAC AND RESPIRATORY DISTRESS NOTED. SAFETY MEASURES IN PLACE, CALL LIGHT WITH IN EASY REACH, BED IN LOW LOCKED POSITION, ASPIRATION PRECAUTION MAINTAINED. DENIES PAIN AT THIS TIME. ALL NEEDS ANTICIPATED, KEEP CLEAN WARM AND COMFORTABLE. WILL CONTINUE TO MONITOR ACCORDINGLY.
[2020-02-06 20:25] VITALS: BP 91/60
[2020-02-06 20:30] VITALS: BP 91/60
[2020-02-06] MEDS: LEVOFLOXACIN (250MG) 250 MG TABLET PO SCH (21:32)
[2020-02-06] MEDS: SIMVASTATIN 20 MG TABLET PO SCH (21:32)
[2020-02-06] MEDS: *INSULIN REGULAR(HUMULIN R)HUM 100 UNIT/ML VIAL SQ PRN (21:38)
[2020-02-07 06:26] LABS: BASOPHILS # (AUTO) 0.1 /CMM (0.0-0.2); BASOPHILS % (AUTO) 0.7 % (0.0-2.0); EOSINOPHILS % (AUTO) 0.1 % (0.0-6.0); HEMATOCRIT 41 % (39-51); HEMOGLOBIN 12.5 g/dL (13.5-17.5); LYMPHOCYTES # (AUTO) 0.5 /CMM (0.8-4.8); MEAN CORPUSCULAR HGB CONC 30 g/dl (31.0-36.0); MEAN CORPUSCULAR VOLUME 85 fL (80-96); MONOCYTES # (AUTO) 1.1 /CMM (0.1-1.30); MONOCYTES % (AUTO) 9.6 % (2.0-12.0); NEUTROPHILS # (AUTO) 10.2 /CMM (1.8-8.9); NEUTROPHILS % (AUTO) 85.6 % (43.0-81.0); PLATELET COUNT (AUTO) 369 /CMM (150-450); RED BLOOD CELL COUNT(AUTO) 4.83 MIL/uL (4.5-6.0)
[2020-02-07] MEDS: BLOOD SUGAR DIAGNOSTIC 1 EACH STRIP IN SCH ×4 (06:32→22:00)
[2020-02-07] MEDS: *INSULIN REGULAR(HUMULIN R)HUM 100 UNIT/ML VIAL SQ PRN ×2 (06:36→21:59)
--- NOTE | 2020-02-07 06:41 | NUR ---
RN NOTES ALL NEEDS ATTENDED AND MET. ABLE TO REST AND SLEPT AT INTERVALS. SAFETY MEASURES IN PLACE, KEEP CLEAN WARM AND COMFORTABLE. CALL LIGHT WITH IN EASY REACH, IV INTACT AND PATENT. DENIES PAIN AT THIS TIME. WILL ENDORSE TO AM NURSE FOR CONTINUITY OF CARE.
[2020-02-07 07:12] LABS: CALCIUM, SERUM 8.2 mg/dL (8.5-10.1); MAGNESIUM 2.8 mg/dL (1.8-2.4); PHOSPHORUS 4.5 mg/dL (2.5-4.9); POTASSIUM 5.4 mmol/L (3.5-5.1)
[2020-02-07 07:16] LABS: CREATININE 11.6 mg/dL (0.6-1.3)
--- NOTE | 2020-02-07 07:25 | NUR ---
MS/RN NOTES RECEIVED PATIENT ON BED . NO APPARENT RESPIRATORY DISTRESS NOTED. DENIES ANY PAIN AT THIS TIME.WILL CONTINUE TO MONITOR.
[2020-02-07] MEDS: PANTOPRAZOLE 40 MG TABLET.DR PO SCH (07:54)
[2020-02-07] MEDS: SEVELAMER CARBONATE 800 MG TABLET PO SCH ×3 (07:54→17:07)
[2020-02-07 08:00] VITALS: BP 111/70
[2020-02-07] MEDS: DOCUSATE SODIUM 100 MG CAPSULE PO SCH (08:15)
[2020-02-07] MEDS: VIT B CMPLX 3/FA/VIT C/BIOTIN 1 TAB TABLET PO SCH (08:16)
[2020-02-07] MEDS: MIDODRINE HCL (5MG) 5 MG TABLET PO SCH ×3 (08:17→17:08)
[2020-02-07] MEDS: TIMOLOL 0.5% SOLN OPHTH 5 ML BOTTLE EACHEYE SCH ×2 (08:18→17:08)
[2020-02-07] MEDS: APIXABAN 5 MG TABLET PO SCH ×2 (08:19→17:16)
[2020-02-07] MEDS: BRIMONIDINE TARTRATE OPHT SOLN 5 ML BOTTLE EACHEYE SCH ×3 (08:22→17:08)
[2020-02-07] MEDS: INSULIN GLARGINE, 100 UNIT/ML CARTRIDGE SQ SCH ×2 (08:25→22:00)
[2020-02-07] MEDS: BENZONATATE 100 MG CAPSULE PO SCH (08:29)
[2020-02-07] MEDS: INSULIN LISPRO/ASPART 100 UNIT/ML CARTRIDGE SQ SCH ×3 (08:40→17:22)
[2020-02-07] MEDS: INSULIN REGULAR, HUMAN 100 UNIT/ML 3 ML VIAL SQ PRN (11:56)
[2020-02-07] MEDS: SUCRALFATE 1 G TABLET PO SCH ×3 (13:40→21:30)
[2020-02-07 16:00] VITALS: BP 129/95
--- NOTE | 2020-02-07 18:43 | NUR ---
MS/RN CLOSING PATIENT IS ON BED. ALERT AND ORIENTED X4. PATIENT IN NO APPARENT RESPIRATORY DISTRESS NOTED. DENIES ANY PAIN AT THIS TIME. IV ACCESS AT RIGHT FOREARM # 20 G PATENT AND INTACT. SEEN AND EXAMINED BY MD WITH ORDERS MADE AND CARRIED OUT. ALL DUE MEDICATION WAS GIVEN. SAFETY PRECAUTION IN PLACED. BED IN LOWEST POSITION AND LOCKED. SIDE RAILS UP X 2. CALL LIGHT WITHIN REACH. WILL ENDORSED TO CIVIL PROJECT ENGINEER FOR JONO.
--- NOTE | 2020-02-07 19:30 | NUR ---
MS RN OPENING NOTES PATIENT AWAKE IN BED. A/OX4. ON RA. NO S/S OF ACUTE RESPIRATORY DISTRESS; BREATHING IS EVEN AND UNLABORED. PATIENT STATES PAIN RATED 6/10 ON LEFT FOOT HOWEVER IS REFUSING ANY PAIN MEDS AT THIS TIME. IV PRESENT ON RIGHT FA, SIZE 20, INTACT & PATENT, HEP LOCKED. LEFT FOOT WOUND DRESSING DRY AND INTACT. SAFETY MEASURES IN PLACE AND PATIENT'S NEEDS MET. BED LOCKED, HOB ELEVATED, SIDE RAILS X2, CALL LIGHT WITHIN REACH. WILL CONTINUE TO MONITOR.
[2020-02-07 20:00] VITALS: BP 96/75
[2020-02-07 20:25] VITALS: BP 96/75
[2020-02-07] MEDS: SIMVASTATIN 20 MG TABLET PO SCH (21:30)
[2020-02-08] MEDS: INSULIN REGULAR, HUMAN 100 UNIT/ML 3 ML VIAL SQ PRN ×2 (06:26→12:10)
[2020-02-08] MEDS: BLOOD SUGAR DIAGNOSTIC 1 EACH STRIP IN SCH ×3 (06:30→16:59)
[2020-02-08] MEDS: SUCRALFATE 1 G TABLET PO SCH ×3 (06:35→18:30)
[2020-02-08] MEDS: PANTOPRAZOLE 40 MG TABLET.DR PO SCH (06:35)
[2020-02-08 06:43] LABS: CALCIUM, SERUM 8.5 mg/dL (8.5-10.1); MAGNESIUM 2.7 mg/dL (1.8-2.4); PHOSPHORUS 4.4 mg/dL (2.5-4.9); POTASSIUM 5.5 mmol/L (3.5-5.1)
[2020-02-08 06:49] LABS: CREATININE 14.2 mg/dL (0.6-1.3)
[2020-02-08 06:53] LABS: BASOPHILS # (AUTO) 0.1 /CMM (0.0-0.2); BASOPHILS % (AUTO) 0.9 % (0.0-2.0); EOSINOPHILS % (AUTO) 3.1 % (0.0-6.0); HEMATOCRIT 41 % (39-51); HEMOGLOBIN 12.5 g/dL (13.5-17.5); LYMPHOCYTES # (AUTO) 0.9 /CMM (0.8-4.8); LYMPHOCYTES % (AUTO) 9.3 % (20.0-44.0); MEAN CORPUSCULAR HGB CONC 31 g/dl (31.0-36.0); MEAN CORPUSCULAR VOLUME 84 fL (80-96); MONOCYTES # (AUTO) 1.6 /CMM (0.1-1.30); MONOCYTES % (AUTO) 16.5 % (2.0-12.0); NEUTROPHILS % (AUTO) 70.2 % (43.0-81.0); PLATELET COUNT (AUTO) 340 /CMM (150-450); RED BLOOD CELL COUNT(AUTO) 4.83 MIL/uL (4.5-6.0); WHITE BLOOD COUNT (AUTO) 9.9 K/uL (4.3-11.0)
--- NOTE | 2020-02-08 06:54 | NUR ---
MS RN CLOSING NOTES PATIENT AWAKE IN BED. A/OX4. NO C/O SOB OR PAIN AT THIS TIME. IV PRESENT ON RIGHT FA, SIZE 20, INTACT & PATENT, HEP LOCKED. LEFT FOOT WOUND DRESSING DRY AND INTACT. SAFETY MEASURES IN PLACE AND PATIENT'S NEEDS MET. BED LOCKED, HOB ELEVATED, SIDE RAILS X2, CALL LIGHT WITHIN REACH. WILL ENDORSE TO DAY SHIFT NURSE PLAN OF CARE.
--- NOTE | 2020-02-08 07:30 | NUR ---
MS RN NOTES RECEIVED PT IN BED, AWAKE, A/O X4. PT TOLERATING RA, WITH NO ACUTE RESPIRATORY DISTRESS NOTED. PT STED PAIN OF 6-7 TO THE LEFT FOOT, BUT REFUSES TO HAVE ANY PAIN MEDICINE AT THIS TIME. PT DENIES ANY QUESTIONS OR CONCERNS WELL AT THE MOMENT. RCW HD ACCESS NOTED. PIV TO LFA G20, FLUSHED WITH NS, INTACT AND OPERATIONAL. PT KEPT COMFORTABLE IN THE ROOM. PT'S BED IN LOWEST LOCKED POSITION. CALL LIGHT KEPT WITHIN REACH. WILL CONTINUE PLAN OF CARE.
[2020-02-08] MEDS: INSULIN GLARGINE, 100 UNIT/ML CARTRIDGE SQ SCH (08:08)
[2020-02-08] MEDS: INSULIN LISPRO/ASPART 100 UNIT/ML CARTRIDGE SQ SCH ×3 (08:08→18:00)
[2020-02-08] MEDS: DOCUSATE SODIUM 100 MG CAPSULE PO SCH (08:09)
[2020-02-08] MEDS: SEVELAMER CARBONATE 800 MG TABLET PO SCH ×3 (08:09→18:30)
[2020-02-08] MEDS: APIXABAN 5 MG TABLET PO SCH ×2 (08:09→18:31)
[2020-02-08] MEDS: VIT B CMPLX 3/FA/VIT C/BIOTIN 1 TAB TABLET PO SCH (08:09)
[2020-02-08] MEDS: TIMOLOL 0.5% SOLN OPHTH 5 ML BOTTLE EACHEYE SCH ×2 (08:11→18:32)
[2020-02-08] MEDS: BRIMONIDINE TARTRATE OPHT SOLN 5 ML BOTTLE EACHEYE SCH ×3 (08:11→18:31)
[2020-02-08] MEDS: BENZONATATE 100 MG CAPSULE PO SCH (08:11)
[2020-02-08] MEDS: MIDODRINE HCL (5MG) 5 MG TABLET PO SCH ×3 (08:23→18:32)
[2020-02-08 10:07] LABS: EOSINOPHILS % (MANUAL) 4 % (0-4); LYMPHOCYTES % (MANUAL) 10 % (16-48); MONOCYTES % (MANUAL) 13 % (0-11.0); MYELOCYTES % 1 % (0-0); NEUTROPHILS % (MANUAL) 72 (42-76)
--- NOTE | 2020-02-08 12:30 | NUR ---
MS RN NOTES PT'S SPOUSE REQUESTED FOR LAXATIVE. PT HASNT HAD BM FOR 3DAYS. HOSPITALIST/AP MADE AWARE AND ORDERED PRN MIRALAX. ADMINISTERD TO THE T AND MADE AWARE DIALYSIS NURSE CALLED AND WILL BE HERE IN AN HOUR TO HAVE HIM DIALYZE. WILL CONTINUE PLAN OF CARE.
[2020-02-08] MEDS ORDERED: POLYETHYLENE GLYCOL 3350 17 GM POWD.PACK PO PRN (13:00)
[2020-02-08] MEDS ORDERED: APIX5TAB PO (14:29)
[2020-02-08] MEDS ORDERED: Levofloxacin (250MG) PO (14:29)
[2020-02-08] MEDS ORDERED: GENT40VI2 IM (14:29)
--- NOTE | 2020-02-08 15:25 | NUR ---
MS RN NOTES PT JUST STARTED BEING DIALYZE. PT AND SPOUSE ABBI MADE AWARE WITH THE PLAN OF DISCHARGE. WILL CONTINUE TO MONITOR.
[2020-02-08] MEDS ORDERED: TDAP [DIPH/PERTUSSIS/TET] 0.5 ML VIAL IM ONE (15:30)
--- NOTE | 2020-02-08 15:33 | NUR ---
MS RN NOTES PT REQUESTED FOR PNA, FLU AND TETANUS VACCINES. HOSPITALIST/AP AND ONCALL FOR DR PERRY, DR SKINNER AWARE AND OKAY TO ADMINISTER TO PT BEFORE LEAVING HOSPITAL TODAY. ORDERS PLACED AND CARRIED OUT.
--- NOTE | 2020-02-08 15:34 | NUR ---
MS LUPE NOTES CALLED PHARMACY AND SPOKE TO BERLIN REGARDING ORDERED VACCINES. FLU VACCINE NOT AVAILABLE AT THIS TIME, ALL WAS SENT BACK. NO NEW FLU VACCINES AVAILABLE ATT HIS TIME. PT MADE AWARE AND OKAY WITH IT. WILL CONTINUE PLAN OF CARE.
[2020-02-08] MEDS ORDERED: PNEUMOCOCCAL 23-VAL P-SAC VAC 0.5 ML VIAL SQ ONE (16:00)
[2020-02-08 18:32] VITALS: BP 138/78
--- NOTE | 2020-02-08 19:36 | NUR ---
MS LINUX ENGINEER NOTES PT AWAKE, A/O X4. PT TOLERATING RA, WITH NO ACUTE RESPIRATORY DISTRESS NOTED. PT DENIES ANY PAIN OR DISCOMFORT AT THE TIME OF DISCHARGE. RCW HD ACCESS NOTED. HAD DIALYSIS TODAY WITH 2700ML. PIV TO LFA G20, REMOVED AND APPLIED DRY DRESSING. WOUND CARE PROVIDED. PT SIGNED AND REVIEWED DISCHARGE INSTRUCTIONS AND INVENTORY LIST WITH THE SPOUSE/ABBI AT BEDSIDE. PRESCRIPTION GIVEN TO THE PATIENT. SKIN ASSESSED, PICTURES TAKEN AND FILED IN THE CHART. ALL NEEDS AND CARE PROVIDED. STABLE VS. ESCORTED PT TO THE LOBBY VIA WHEELCHAIR. ACCOMPANIED BY SPOUSE/ABBI. LEFT THE UNIT AT 1935.
== END 2020-02-08 19:39 | disposition home or self-care (01) | DRG 579 ==
LOC: WOUND2 11:12
PROVIDERS: ADMIT Hospitalist; ATTEND Hospitalist
PROC: 5A1D70Z Performance of Urinary Filtration, Intermittent, Less than 6 Hours Per Day (ICD-10-PCS; principal; 2020-02-05)
PROC: 0LBW0ZZ Excision of Left Foot Tendon, Open Approach (ICD-10-PCS; 2020-02-06)
PROC: 0QBP0ZX Excision of Left Metatarsal, Open Approach, Diagnostic (ICD-10-PCS; 2020-02-06)
DX: L03.116 Cellulitis of left lower limb (principal); N18.6 End stage renal disease; I13.2 Hypertensive heart and chronic kidney disease with heart failure and with stage 5 chronic kidney disease, or end stage renal disease; E87.1 Hypo-osmolality and hyponatremia; I82.432 Acute embolism and thrombosis of left popliteal vein; M86.9 Osteomyelitis, unspecified; E11.621 Type 2 diabetes mellitus with foot ulcer; E11.51 Type 2 diabetes mellitus with diabetic peripheral angiopathy without gangrene; E11.22 Type 2 diabetes mellitus with diabetic chronic kidney disease; E11.69 Type 2 diabetes mellitus with other specified complication; E87.5 Hyperkalemia; E78.5 Hyperlipidemia, unspecified; E11.42 Type 2 diabetes mellitus with diabetic polyneuropathy; I25.10 Atherosclerotic heart disease of native coronary artery without angina pectoris; I50.9 Heart failure, unspecified; K21.9 Gastro-esophageal reflux disease without esophagitis; L97.529 Non-pressure chronic ulcer of other part of left foot with unspecified severity; Z95.5 Presence of coronary angioplasty implant and graft; Z95.810 Presence of automatic (implantable) cardiac defibrillator; Z99.2 Dependence on renal dialysis; Z79.01 Long term (current) use of anticoagulants; E83.59 Other disorders of calcium metabolism; B96.20 Unspecified Escherichia coli [E. coli] as the cause of diseases classified elsewhere; S20.212A Contusion of left front wall of thorax, initial encounter; W18.30XA Fall on same level, unspecified, initial encounter; Y92.002 Bathroom of unspecified non-institutional (private) residence as the place of occurrence of the external cause
CPT/HCPCS: 36415; 71100-TC; 80048-TC; 80053-TC; 80061-TC; 80170-TC; 82962-TC; 83735-TC; 84100-TC; 84443-TC; 85025-TC; 85610-TC; 85730-TC; 86706; 86850-TC; 87070-TC; 87081-TC; 87186-TC; 87340; 88305-TC; 88311-TC; 90715; 90732; 90935-TC; A6209; A6253; A6403; A6407; J0690; J1580; J1644; J1815; J2405; J2704; J2765; J3010; J3370; J3490; J7050; J7060

== ENCOUNTER 2020-02-13 13:55 | Outpatient (CLI) | payer MEDICARE, BC ==
[~2020-02-13 13:55] MED LIST changes: +APIX5TAB PO; +BENZ-13 PO; -CINA60TA PO; +FOLI0.8T23 PO; +GENT40VI2 IM; +HYDR-4384 PO; +Levofloxacin (250MG) PO; +VIT1TABL46 MT
== END 2020-02-13 23:59 | disposition home or self-care (01) ==
LOC: WOU 13:55
PROVIDERS: ATTEND Podiatrist Foot & Ankle Surgery
DX: E11.621 Type 2 diabetes mellitus with foot ulcer (principal); L97.523 Non-pressure chronic ulcer of other part of left foot with necrosis of muscle; E11.42 Type 2 diabetes mellitus with diabetic polyneuropathy; E11.51 Type 2 diabetes mellitus with diabetic peripheral angiopathy without gangrene; E11.22 Type 2 diabetes mellitus with diabetic chronic kidney disease; E11.69 Type 2 diabetes mellitus with other specified complication; N18.6 End stage renal disease; M86.172 Other acute osteomyelitis, left ankle and foot; Z99.2 Dependence on renal dialysis; Z79.4 Long term (current) use of insulin; Z95.0 Presence of cardiac pacemaker
CPT/HCPCS: 11043; J3490

== ENCOUNTER 2020-02-20 14:25 | Outpatient (CLI) | payer MEDICARE, BC | END 2020-02-20 23:59 | disposition home or self-care (01) | LOC: WOU 14:25 | PROVIDERS: ATTEND Podiatrist Foot & Ankle Surgery | DX: E11.621 Type 2 diabetes mellitus with foot ulcer (principal); L97.523 Non-pressure chronic ulcer of other part of left foot with necrosis of muscle; E11.51 Type 2 diabetes mellitus with diabetic peripheral angiopathy without gangrene; E11.42 Type 2 diabetes mellitus with diabetic polyneuropathy; E11.69 Type 2 diabetes mellitus with other specified complication; E11.22 Type 2 diabetes mellitus with diabetic chronic kidney disease; M86.172 Other acute osteomyelitis, left ankle and foot; I12.0 Hypertensive chronic kidney disease with stage 5 chronic kidney disease or end stage renal disease; N18.6 End stage renal disease; Z99.2 Dependence on renal dialysis; Z79.4 Long term (current) use of insulin; Z87.891 Personal history of nicotine dependence; Z95.0 Presence of cardiac pacemaker | CPT/HCPCS: 11043; J3490 ==

== ENCOUNTER 2020-02-24 14:00 | Outpatient (CLI) | payer MEDICARE, BC | END 2020-02-24 23:59 | disposition home or self-care (01) | LOC: WOU 14:00 | PROVIDERS: ATTEND Podiatrist Foot & Ankle Surgery | DX: E11.621 Type 2 diabetes mellitus with foot ulcer (principal); L97.423 Non-pressure chronic ulcer of left heel and midfoot with necrosis of muscle; L97.525 Non-pressure chronic ulcer of other part of left foot with muscle involvement without evidence of necrosis; L03.116 Cellulitis of left lower limb; E11.42 Type 2 diabetes mellitus with diabetic polyneuropathy; E11.51 Type 2 diabetes mellitus with diabetic peripheral angiopathy without gangrene; E11.22 Type 2 diabetes mellitus with diabetic chronic kidney disease; I13.2 Hypertensive heart and chronic kidney disease with heart failure and with stage 5 chronic kidney disease, or end stage renal disease; N18.6 End stage renal disease; I50.9 Heart failure, unspecified; Z99.2 Dependence on renal dialysis; Z87.891 Personal history of nicotine dependence; Z79.4 Long term (current) use of insulin; Z95.0 Presence of cardiac pacemaker | CPT/HCPCS: 11043; 11046; 87070; A6407 ==

== ENCOUNTER 2020-03-02 13:50 | Outpatient (CLI) | payer MEDICARE, BC ==
[2020-03-02] MEDS ORDERED: GENTAMICIN 0.1% CREAM 15 GM TUBE ONE (14:42)
== END 2020-03-02 23:59 | disposition home or self-care (01) ==
LOC: WOU 13:50
PROVIDERS: ATTEND Podiatrist Foot & Ankle Surgery
DX: E11.621 Type 2 diabetes mellitus with foot ulcer (principal); L97.525 Non-pressure chronic ulcer of other part of left foot with muscle involvement without evidence of necrosis; L97.523 Non-pressure chronic ulcer of other part of left foot with necrosis of muscle; E11.22 Type 2 diabetes mellitus with diabetic chronic kidney disease; E11.51 Type 2 diabetes mellitus with diabetic peripheral angiopathy without gangrene; E11.69 Type 2 diabetes mellitus with other specified complication; I13.2 Hypertensive heart and chronic kidney disease with heart failure and with stage 5 chronic kidney disease, or end stage renal disease; M86.172 Other acute osteomyelitis, left ankle and foot; N18.6 End stage renal disease; I50.9 Heart failure, unspecified; Z99.2 Dependence on renal dialysis; Z87.891 Personal history of nicotine dependence; Z79.4 Long term (current) use of insulin; Z95.0 Presence of cardiac pacemaker
CPT/HCPCS: G0463

== ENCOUNTER 2020-03-19 14:25 | Outpatient (CLI) | payer MEDICARE, BC ==
[~2020-03-19 14:25] MED LIST changes: +LIDOCAINE SOLN 4% 50 ML BOTTLE ONE
[2020-03-19] MEDS ORDERED: LIDOCAINE SOLN 4% 50 ML BOTTLE ONE (14:35)
== END 2020-03-19 23:59 | disposition home or self-care (01) ==
LOC: WOU 14:25
PROVIDERS: ATTEND Podiatrist Foot & Ankle Surgery
DX: E11.621 Type 2 diabetes mellitus with foot ulcer (principal); L97.422 Non-pressure chronic ulcer of left heel and midfoot with fat layer exposed; L97.525 Non-pressure chronic ulcer of other part of left foot with muscle involvement without evidence of necrosis; E11.42 Type 2 diabetes mellitus with diabetic polyneuropathy; E11.69 Type 2 diabetes mellitus with other specified complication; M86.172 Other acute osteomyelitis, left ankle and foot; I13.2 Hypertensive heart and chronic kidney disease with heart failure and with stage 5 chronic kidney disease, or end stage renal disease; E11.22 Type 2 diabetes mellitus with diabetic chronic kidney disease; N18.6 End stage renal disease; I50.9 Heart failure, unspecified; Z99.2 Dependence on renal dialysis; Z79.4 Long term (current) use of insulin
CPT/HCPCS: 11042; 11043

== ENCOUNTER 2020-03-26 14:40 | Outpatient (CLI) | payer MEDICARE, BC ==
[~2020-03-26 14:40] MED LIST changes: -LIDOCAINE SOLN 4% 50 ML BOTTLE ONE
[2020-03-26] MEDS ORDERED: COLLAGENASE 5 GM TUBE UD TP ONE (15:55)
== END 2020-03-26 23:59 | disposition home or self-care (01) ==
LOC: WOU 14:40
PROVIDERS: ATTEND Podiatrist Foot & Ankle Surgery
DX: E11.621 Type 2 diabetes mellitus with foot ulcer (principal); L97.525 Non-pressure chronic ulcer of other part of left foot with muscle involvement without evidence of necrosis; E11.69 Type 2 diabetes mellitus with other specified complication; M86.172 Other acute osteomyelitis, left ankle and foot; E11.42 Type 2 diabetes mellitus with diabetic polyneuropathy; E11.51 Type 2 diabetes mellitus with diabetic peripheral angiopathy without gangrene; E11.22 Type 2 diabetes mellitus with diabetic chronic kidney disease; I13.2 Hypertensive heart and chronic kidney disease with heart failure and with stage 5 chronic kidney disease, or end stage renal disease; N18.6 End stage renal disease; I50.9 Heart failure, unspecified; Z99.2 Dependence on renal dialysis; Z87.891 Personal history of nicotine dependence; Z79.4 Long term (current) use of insulin; Z95.0 Presence of cardiac pacemaker
CPT/HCPCS: 11043

== ENCOUNTER 2020-04-02 14:30 | Outpatient (CLI) | payer MEDICARE, BC ==
[2020-04-02] MEDS ORDERED: COLLAGENASE 5 GM TUBE UD TP ONE (15:06)
== END 2020-04-02 23:59 | disposition home or self-care (01) ==
LOC: WOU 14:30
PROVIDERS: ATTEND Podiatrist Foot & Ankle Surgery
DX: E11.621 Type 2 diabetes mellitus with foot ulcer (principal); L97.525 Non-pressure chronic ulcer of other part of left foot with muscle involvement without evidence of necrosis; E11.42 Type 2 diabetes mellitus with diabetic polyneuropathy; E11.69 Type 2 diabetes mellitus with other specified complication; E11.22 Type 2 diabetes mellitus with diabetic chronic kidney disease; I13.2 Hypertensive heart and chronic kidney disease with heart failure and with stage 5 chronic kidney disease, or end stage renal disease; N18.6 End stage renal disease; M86.172 Other acute osteomyelitis, left ankle and foot; I50.9 Heart failure, unspecified; Z99.2 Dependence on renal dialysis; Z87.891 Personal history of nicotine dependence; Z79.4 Long term (current) use of insulin; Z95.0 Presence of cardiac pacemaker
CPT/HCPCS: G0463

== ENCOUNTER 2020-04-09 14:30 | Outpatient (CLI) | payer MEDICARE, BC ==
[~2020-04-09 14:30] MED LIST changes: -PANT40TA4 PO; +PANT40TA49 PO
[2020-04-09] MEDS ORDERED: COLLAGENASE 5 GM TUBE UD TP ONE (14:56)
== END 2020-04-09 23:59 | disposition home or self-care (01) ==
LOC: WOU 14:30
PROVIDERS: ATTEND Podiatrist Foot & Ankle Surgery
DX: E11.621 Type 2 diabetes mellitus with foot ulcer (principal); L97.522 Non-pressure chronic ulcer of other part of left foot with fat layer exposed; L97.525 Non-pressure chronic ulcer of other part of left foot with muscle involvement without evidence of necrosis; E11.22 Type 2 diabetes mellitus with diabetic chronic kidney disease; E11.51 Type 2 diabetes mellitus with diabetic peripheral angiopathy without gangrene; E11.42 Type 2 diabetes mellitus with diabetic polyneuropathy; I13.2 Hypertensive heart and chronic kidney disease with heart failure and with stage 5 chronic kidney disease, or end stage renal disease; N18.6 End stage renal disease; I50.9 Heart failure, unspecified; Z99.2 Dependence on renal dialysis; Z87.891 Personal history of nicotine dependence; Z79.4 Long term (current) use of insulin; Z95.0 Presence of cardiac pacemaker
CPT/HCPCS: G0463

== ENCOUNTER 2020-05-14 14:30 | Outpatient (CLI) | payer OTHER, BC ==
[2020-05-14] MEDS ORDERED: LIDOCAINE SOLN 4% 50 ML BOTTLE ONE (14:40)
[2020-05-14] MEDS ORDERED: GENTAMICIN 0.1% CREAM 15 GM TUBE ONE (15:04)
== END 2020-05-14 23:59 | disposition home or self-care (01) ==
LOC: WOU 14:30
PROVIDERS: ATTEND Podiatrist Foot & Ankle Surgery
DX: E11.621 Type 2 diabetes mellitus with foot ulcer (principal); L97.525 Non-pressure chronic ulcer of other part of left foot with muscle involvement without evidence of necrosis; E11.42 Type 2 diabetes mellitus with diabetic polyneuropathy; E11.51 Type 2 diabetes mellitus with diabetic peripheral angiopathy without gangrene; E11.69 Type 2 diabetes mellitus with other specified complication; E11.22 Type 2 diabetes mellitus with diabetic chronic kidney disease; I13.2 Hypertensive heart and chronic kidney disease with heart failure and with stage 5 chronic kidney disease, or end stage renal disease; M86.172 Other acute osteomyelitis, left ankle and foot; N18.6 End stage renal disease; I50.9 Heart failure, unspecified; Z99.2 Dependence on renal dialysis; Z87.891 Personal history of nicotine dependence; Z79.4 Long term (current) use of insulin; Z95.810 Presence of automatic (implantable) cardiac defibrillator
CPT/HCPCS: G0463

== ENCOUNTER 2020-05-28 14:35 | Outpatient (CLI) | payer BC ==
[2020-05-28] MEDS ORDERED: GENTAMICIN 0.1% CREAM 15 GM TUBE ONE (15:32)
== END 2020-05-28 23:59 | disposition home or self-care (01) ==
LOC: WOU 14:35
PROVIDERS: ATTEND Podiatrist Foot & Ankle Surgery
DX: E11.621 Type 2 diabetes mellitus with foot ulcer (principal); L97.525 Non-pressure chronic ulcer of other part of left foot with muscle involvement without evidence of necrosis; E11.42 Type 2 diabetes mellitus with diabetic polyneuropathy; E11.51 Type 2 diabetes mellitus with diabetic peripheral angiopathy without gangrene; E11.22 Type 2 diabetes mellitus with diabetic chronic kidney disease; I13.2 Hypertensive heart and chronic kidney disease with heart failure and with stage 5 chronic kidney disease, or end stage renal disease; N18.6 End stage renal disease; I50.9 Heart failure, unspecified; Z99.2 Dependence on renal dialysis; Z87.891 Personal history of nicotine dependence; Z79.4 Long term (current) use of insulin
CPT/HCPCS: G0463

== ENCOUNTER 2020-06-11 14:30 | Outpatient (CLI) | payer BC ==
[2020-06-11] MEDS ORDERED: LIDOCAINE SOLN 4% 50 ML BOTTLE ONE (14:40)
[2020-06-11] MEDS ORDERED: MUPIROCIN 2% CREAM 15 GM TUBE TP ONE (15:07)
== END 2020-06-11 23:59 | disposition home or self-care (01) ==
LOC: WOU 14:30
PROVIDERS: ATTEND Podiatrist Foot & Ankle Surgery
DX: E11.621 Type 2 diabetes mellitus with foot ulcer (principal); L97.524 Non-pressure chronic ulcer of other part of left foot with necrosis of bone; E11.51 Type 2 diabetes mellitus with diabetic peripheral angiopathy without gangrene; E11.42 Type 2 diabetes mellitus with diabetic polyneuropathy; E11.22 Type 2 diabetes mellitus with diabetic chronic kidney disease; E11.69 Type 2 diabetes mellitus with other specified complication; I13.2 Hypertensive heart and chronic kidney disease with heart failure and with stage 5 chronic kidney disease, or end stage renal disease; M86.172 Other acute osteomyelitis, left ankle and foot; N18.6 End stage renal disease; I50.9 Heart failure, unspecified; Z99.2 Dependence on renal dialysis; Z87.891 Personal history of nicotine dependence; Z79.4 Long term (current) use of insulin
CPT/HCPCS: G0463

== ENCOUNTER 2020-06-25 14:30 | Outpatient (CLI) | payer BC ==
[2020-06-25] MEDS ORDERED: GENTAMICIN 0.1% CREAM 15 GM TUBE ONE (14:57)
== END 2020-06-25 23:59 | disposition home or self-care (01) ==
LOC: WOU 14:30
PROVIDERS: ATTEND Podiatrist Foot & Ankle Surgery
DX: E11.52 Type 2 diabetes mellitus with diabetic peripheral angiopathy with gangrene (principal); E11.22 Type 2 diabetes mellitus with diabetic chronic kidney disease; E11.42 Type 2 diabetes mellitus with diabetic polyneuropathy; E11.621 Type 2 diabetes mellitus with foot ulcer; L97.524 Non-pressure chronic ulcer of other part of left foot with necrosis of bone; I96 Gangrene, not elsewhere classified; I12.0 Hypertensive chronic kidney disease with stage 5 chronic kidney disease or end stage renal disease; N18.6 End stage renal disease; Z99.2 Dependence on renal dialysis; Z87.891 Personal history of nicotine dependence; Z79.4 Long term (current) use of insulin; Z95.0 Presence of cardiac pacemaker
CPT/HCPCS: G0463